=== PATIENT | female | born 1950 | race Caucasian/White ===

== ENCOUNTER 2019-09-08 11:27 | Outpatient (RCR) | payer MEDICARE, OTHER, SELFPAY | END 2019-10-02 23:59 | disposition home or self-care (01) | LOC: SPT 11:27 | PROVIDERS: Family Provider Family Medicine; PCP Family Medicine; Referring Provider Specialist; Visit Provider Specialist | DX: M70.61 Trochanteric bursitis, right hip (principal) | CPT/HCPCS: 97110; 97161; 97530 ==

== ENCOUNTER 2021-08-27 11:41 | Emergency (ER) | payer MEDICARE, SELFPAY ==
[2021-08-27 12:08] VITALS: BP 138/74; PULSE 50; RESP 12; TEMP 36.7; O2SAT 97; BMI 32.5
--- NOTE | 2021-08-27 12:28 | ECG_ITS ---
[facility] Test Date: 2021-08-27 Pat Name: Evelin Crisostomo Department: Room: Gender: Female Research Biologist: : 1950 Requested By: Danielle Blankenship Order Number: [id number] Jazmin MD: Paula Heath M.D. Measurements Intervals [place] Rate: 40 P: 38 NH: 128 QRS: 24 QRSD: 94 T: 5 QT: 453 QTc: 370 Interpretive Statements SINUS BRADYCARDIA NONSPECIFIC T-WAVE ABNORMALITY CRITICAL TEST RESULT No previous ECG available for comparison Electronically Signed On 08-28-2021 16:58:11 [employer]SEM[employer] by Paula Heath M.D. [id number]
--- NOTE | 2021-08-27 12:48 | USR_ITS ---
PROCEDURE INFORMATION: Exam: US Abdomen, Limited; Right Upper Quadrant Exam date and time: 08/27/2021 12:48 PM Age: 71 years old Clinical indication: Abdominal pain; Additional info: Ruq pain TECHNIQUE: Imaging protocol: US abdomen. Real time ultrasound with image documentation. Limited exam focused on the right upper quadrant. COMPARISON: No relevant prior studies available. FINDINGS: Liver: There is a well-circumscribed echogenic focus in the right hepatic lobe with benign features. Gallbladder: Suboptimal visualization of the gallbladder secondary to overlying bowel gas. No definite gallstones are seen. Gallbladder wall is normal in thickness measuring 1.8 mm. Common bile duct: Common bile duct is obscured in regions secondary to overlying bowel gas. It is normal in caliber where visualized measuring 2.8 mm. Pancreas: Limited visualization of the pancreas secondary to overlying bowel gas. No abnormalities visualized. Right kidney: There is mild fullness of the calices in the mid to lower poles of the right kidney. Inferior vena cava: IVC is unremarkable. Other findings: Technically difficult study secondary to a large amount bowel gas in this patient with labored breathing. US/US gall bladder [id number] IMPRESSION: 1. Mild fullness of the mid to lower pole calices of the right kidney. This is of unknown clinical significance. No obstructing calculi visualized. 2. Limited visualization of the gallbladder however no abnormalities are seen. This with a technically difficult study secondary to a large amount of overlying bowel gas.
[2021-08-27 13:07] VITALS: BP 144/82; PULSE 50; RESP 15; O2SAT 96
[2021-08-27 13:14] LABS: Basophils % 0.5 %; Eosinophils # 0.1 10^3/uL (0.0-0.8); Eosinophils % 2.1 %; Hematocrit 38.4 % (37.0-47.0); Hemoglobin 12.4 g/dL (11.5-15.3); Lymphocytes # 1.6 10^3/uL (0.8-4.8); Mean Corpuscular HGB Conc 32.3 g/dL (30.0-36.0); Mean Corpuscular Hemoglobin 26.7 pg (28.0-34.0); Mean Corpuscular Volume 82.6 fl (81-99); Mean Platelet Volume 10.2 fL (7.4-10.4); Monocytes # 0.5 10^3/uL (0.2-0.9); Monocytes % 9.4 %; Neutrophils # 3.31 10^3/uL (1.8-7.7); Neutrophils % 58.8 %; Nucleated Red Blood Cells % 0 %; Platelet Count 206 10^3/cmm (130-400); Red Blood Count 4.65 10^6/uL (4.1-5.3); Red Cell Distribution Width 14.5 % (12.1-15.1); White Blood Count 5.6 10^3/uL (4.0-10.0)
[2021-08-27 13:34] LABS: Alanine Aminotransferase 8 U/L (0-33); Albumin Level 4.3 g/dL (3.5-5.2); Alkaline Phosphatase 105 IU/L (35-105); Anion Gap 14.7 (5-19); Aspartate Amino Transferase 12 U/L (0-32); Blood Urea Nitrogen 13 mg/dL (8-23); Calcium 8.7 mg/dL (8.5-10.5); Carbon Dioxide 23 mmol/L (22-29); Glucose 94 mg/dL (65-115); Lipase 25 U/L (13-60); Potassium 3.7 mmol/L (3.5-5.1); Sodium 143 mmol/L (136-145); Total Bilirubin 0.4 mg/dL (0.15-1.2); Total Protein 7.3 g/dL (6.6-8.7)
[2021-08-27 13:35] LABS: Troponin T (5th) Once 10 ng/L (0-10)
[2021-08-27 13:36] LABS: Chloride 109 mmol/L (98-107)
[2021-08-27 14:07] VITALS: BP 150/81; PULSE 72; RESP 15; O2SAT 98
--- NOTE | 2021-08-27 14:44 | CTR_ITS ---
PROCEDURE INFORMATION: Exam: CT Abdomen And Pelvis With Contrast Exam date and time: 08/27/2021 2:44 PM Age: 71 years old Clinical indication: Abdominal pain; Epigastric; Prior surgery; Surgery date: 6+ months; Surgery type: Appy, gastric sleeve, hysterectomy; Patient HX: Ruq pain x 1 day; Additional info: Eval for gallbladder and kidney issues TECHNIQUE: Imaging protocol: Computed tomography of the abdomen and pelvis with contrast. Radiation optimization: All CT scans at this facility use at least one of these dose optimization techniques: automated exposure control; mA and/or kV adjustment per patient size (includes targeted exams where dose is matched to clinical indication); or iterative reconstruction. Contrast material: VISI 320; Contrast volume: 95 ml; Contrast route: INTRAVENOUS (IV); COMPARISON: US gall bladder [id number] 08/27/2021 1:57 PM RADIATION DOSE METRICS: Total DLP (mGy-cm): 1530.82 FINDINGS: Liver: Normal. No mass. Gallbladder and bile ducts: Normal. No calcified stones. No ductal dilation. Pancreas: Normal. No ductal dilation. Spleen: Normal. No splenomegaly. Adrenal glands: Normal. No mass. Kidneys and ureters: Bilateral renal parapelvic cysts. These have benign features. Follow-up is not necessary. No follow-up is necessary. No evidence for hydroureter. Stomach and bowel: Postop gastric sleeve changes. Colonic constipation is present. There is diverticulosis of the colon without evidence of diverticulitis. Appendix: There has been an appendectomy. Intraperitoneal space: Unremarkable. No free air. No significant fluid collection. Vasculature: There is scattered atherosclerotic plaque in multiple vascular structures. Lymph nodes: Unremarkable. No enlarged lymph nodes. Urinary bladder: Bladder is partially obscured by artifact. No abnormalities are seen. Reproductive: The uterus is not visualized, consistent with hysterectomy. Bones/joints: Right total hip replacement. Resultant artifact obscures adjacent structures. Soft tissues: Unremarkable. CT/CT abdomen pelvis w con* [id number] IMPRESSION: Colonic constipation is present. COMMENTS: Consistent with the [employer]'s Incidental Findings Committee white paper (J Am Calos Radiol 2018): Any incidental renal lesion less than 1 cm or classified as too small to characterize, or any incidental cystic renal lesion characterized as simple-appearing, is likely benign. No follow-up imaging is recommended for these lesions per consensus recommendations based on imaging criteria.
[2021-08-27 15:00] VITALS: BP 142/87; PULSE 59; RESP 18; O2SAT 97
[2021-08-27] MEDS: acetaminophen 500 mg Tablet 1000 MG PO (15:02)
--- NOTE | 2021-08-27 15:03 | W.ED.GENADLT ---
HPI - General Adult General: Chief complaint: Abdominal Pain Stated complaint: RUQ pain Time Seen by Provider: 08/27/21 12:44 History of Present Illness: HPI narrative: Patient is a 71-year-old female with history of appendectomy presented to the emergency with complaints of right upper quadrant abdominal pain since 4:30 AM. Patient tells me pain started while she was at rest. Patient is in, patient has had constant colicky right upper quadrant abdominal pain. Patient denies any history of kidney stones. No signs of hematuria or polyuria. Patient denies any nausea/vomiting, fever/chills,. Patient has had similar pain about 1 month ago. Patient went to see her primary care provider 10 days ago for evaluation of her hiatal hernia. Patient has not had an EGD performed. Patient is due to follow up with general surgery. Onset: 4:30am Duration:10 hrs Location:home Severity:moderates/severe Review of Systems Narrative: Constitutional: No fever, no chills. HEENT: No vision changes CV: No chest pain, no palpitations PULM: no cough, no dyspnea. GI: +RUQ abdominal pain, +N/-V/-D. : No dysuria MSKEL: No muscle pain SKIN: No new rashes, no lesions. NEURO: No headache, no focal weakness. HEME: No visible bruises PSYCH: Normal mood Physical Exam Narrative: EXAM NARRATIVE: Head: Atraumatic Eyes: PERRL, conjunctiva without injection ENT: Mucous membrane moist NECK: Supple, ROM intact LUNGS: LCTAB, no crackles/rhonchi CV: RRR ABDOMEN: Soft, +RUQ focal TTP. NO guarding rebound, guarding, rigidity. No CVA tenderness to percussion. Pos Garrett/Neg McBurney's point tenderness, no suprabupic tenderness to palpation. EXTREMITY: Normal ROM SKIN: No rash or erythema NEURO: Awake and alert, no focal motor deficits PSYCH: Normal mood and affect Course Vital Signs: Vital signs: Vital Signs Temperature 98.0 F 08/27/21 12:08 Pulse Rate 59 L 08/27/21 15:00 Respiratory Rate 18 08/27/21 15:00 Blood Pressure 142/87 08/27/21 15:00 Pulse Oximetry 97 08/27/21 15:00 MDM - General Adult MDM Narrative: Medical decision making narrative: 71-year-old female presented to the emergency room with complaints of right upper quadrant abdominal radha., Patient moderate tenderness to palpation right upper quadrant plus Garrett sign. Ultrasound is equivocal. CT of the pelvis did not show any signs of acute cholecystitis. White count 5.3. Troponin within normal limit. EKG is nonischemic. D-dimer appears to be moderately elevated at which point time decision was made to pursue a CTA. CTA negative for PE. Initial EKG showed sinus bradycardia but patient's HR improved throughout ED assessments to the 50s-60s. On reassessment at 5:17 PM, patient is now in no acute distress. No complaints of abdominal pain after GI cocktail. Patient's will tolerate p.o. without difficulty. No suspicion for other acute intra-abdominal pathology including SBO, biliary pathology, appendicitis, diverticulitis, or other emergent condition requiring surgery. Doubt cardiac related pathology given no chest pain. Troponin within normal limit. Rx tylenol PRN abd pain, maalox/pepcid PRN dyspepsia, and zofran PRN nausea/vomiting Disposition: Discharge. Patient counseled regarding diagnostic impression, treatment plan. Patient given ED strict return precautions to return for continuation, worsening, or development of new symptoms. Instructed to f/u w/ PCP regarding symptoms today. Patient verbalized understanding. Lab Data: Labs: Lab Results 08/27/21 08/27/21 08/27/21 13:00 13:00 13:00 WBC 5.6 10^3/uL 10^3/ uL (4.0-10.0) RBC 4.65 10^6/uL 10^6 /uL (4.1-5.3) Hgb 12.4 g/dL g/dL (11.5-15.3) Hct 38.4 % % (37.0-47.0) MCV 82.6 fl fl (81-99) MCH 26.7 pg L pg (28.0-34.0) MCHC 32.3 g/dL g/dL (30.0-36.0) RDW 14.5 % % (12.1-15.1) Plt Count 206 10^3/cmm 10^3 /cmm (130-400) MPV 10.2 fL fL (7.4-10.4) Neut % (Auto) 58.8 % % Lymph % (Auto) 29.0 % % [place] % (Auto) 9.4 % % Eos % (Auto) 2.1 % % Baso % (Auto) 0.5 % % Neut # (Auto) 3.31 10^3/uL 10^3 /uL (1.8-7.7) Lymph # (Auto) 1.6 10^3/uL 10^3/ uL (0.8-4.8) [place] # (Auto) 0.5 10^3/uL 10^3/ uL (0.2-0.9) Eos # (Auto) 0.1 10^3/uL 10^3/ uL (0.0-0.8) Baso # (Auto) 0.0 10^3/uL 10^3/ uL (0.0-0.1) Nucleated RBC % (a uto) 0 % % Nucleated RBCs # 0.0 /100WBC /100W BC D-Dimer Sodium 143 mmol/L mmol/L (136-145) Potassium 3.7 mmol/L mmol/L (3.5-5.1) Chloride 109 mmol/L H mmol /L (98-107) Carbon Dioxide 23 mmol/L mmol/L (22-29) Anion Gap 14.7 (5-19) BUN 13 mg/dL mg/dL (8-23) Creatinine 0.7 mg/dL mg/dL (0.5-0.9) GFR Calculation Not Reportable Glucose 94 mg/dL mg/dL (65-115) Calculated Osmolal ity TNP Calcium 8.7 mg/dL mg/dL (8.5-10.5) Total Bilirubin 0.4 mg/dL mg/dL (0.15-1.2) AST 12 U/L U/L (0-32) ALT 8 U/L U/L (0-33) Alkaline Phosphata se 105 IU/L IU/L (35-105) Troponin T Gen 5 n g/L 10 ng/L ng/L (0-10) Total Protein 7.3 g/dL g/dL (6.6-8.7) Albumin 4.3 g/dL g/dL (3.5-5.2) Globulin 3.0 g/dL g/dL (1.3-4.6) Lipase 25 U/L U/L (13-60) Urine Color Urine Appearance Urine pH Ur Specific Gravit y Urine Protein Urine Glucose (UA) Urine Ketones Urine Blood Urine Nitrate Urine Bilirubin Urine Urobilinogen Ur Leukocyte Zoey ase Urine RBC Urine WBC Ur Squamous Epith Cells Amorphous Sediment Urine Bacteria 08/27/21 08/27/21 16:05 16:10 WBC RBC Hgb Hct MCV MCH MCHC RDW Plt Count MPV Neut % (Auto) Lymph % (Auto) [place] % (Auto) Eos % (Auto) Baso % (Auto) Neut # (Auto) Lymph # (Auto) [place] # (Auto) Eos # (Auto) Baso # (Auto) Nucleated RBC % (a uto) Nucleated RBCs # D-Dimer 2.66 ug/mIFEU H u g/mIFEU (0-0.59) Sodium Potassium Chloride Carbon Dioxide Anion Gap BUN Creatinine GFR Calculation Glucose Calculated Osmolal ity Calcium Total Bilirubin AST ALT Alkaline Phosphata se Troponin T Gen 5 n g/L Total Protein Albumin Globulin Lipase Urine Color Straw (Yellow) Urine Appearance Clear (CLEAR) Urine pH 7 (5-7) Ur Specific Gravit y 1.005 (1.005-1.030) Urine Protein 1+ H (Negative) Urine Glucose (UA) Norm (Normal) Urine Ketones Negative (Negative) Urine Blood Neg (Negative) Urine Nitrate Negative (Negative) Urine Bilirubin 1+ H (Negative) Urine Urobilinogen 1 mg/dL H mg/dL (Negative) Ur Leukocyte Zoey ase Negative (Negative) Urine RBC None /hpf /hpf (0-2) Urine WBC Rare /hpf /hpf (0-5) Ur Squamous Epith Cells 0-4 /hpf H /hpf (0-5) Amorphous Sediment Not Reportable Urine Bacteria Trace /hpf /hpf (NONE) Imaging Data^: Other Imaging: Radiologist's impression: [address] [id number] ReportSigned Patient: Evelin Crisostomo #: [id number]: [id number]#:[id number]/Sex: 71 / FADM Date: 08/27/21Loc: ERRoom/Bed:Attending Dr: Ordering Provider/Ordering MD: Danielle Blankenship MD Date of Service: 08/27/21 Procedure(s): US gall bladder 76135 Accession Number(s): [id number] Report Number: [id number] PROCEDURE INFORMATION: Exam: US Abdomen, Limited; Right Upper Quadrant Exam date and time: 08/27/2021 12:48 PM Age: 71 years old Clinical indication: Abdominal pain; Additional info: Ruq pain TECHNIQUE: Imaging protocol: US abdomen. Real time ultrasound with image documentation. Limited exam focused on the right upper quadrant. COMPARISON: No relevant prior studies available. FINDINGS: Liver: There is a well-circumscribed echogenic focus in the right hepatic lobe with benign features. Gallbladder: Suboptimal visualization of the gallbladder secondary to overlying bowel gas. No definite gallstones are seen. Gallbladder wall is normal in thickness measuring 1.8 mm. Common bile duct: Common bile duct is obscured in regions secondary to overlying bowel gas. It is normal in caliber where visualized measuring 2.8 mm. Pancreas: Limited visualization of the pancreas secondary to overlying bowel gas. No abnormalities visualized. Right kidney: There is mild fullness of the calices in the mid to lower poles of the right kidney. Inferior vena cava: IVC is unremarkable. Other findings: Technically difficult study secondary to a large amount bowel gas in this patient with labored breathing. US/US gall bladder [id number] IMPRESSION: 1. Mild fullness of the mid to lower pole calices of the right kidney. This is of unknown clinical significance. No obstructing calculi visualized. 2. Limited visualization of the gallbladder however no abnormalities are seen. This with a technically difficult study secondary to a large amount of overlying bowel gas. Dictated By:Guerda Dunn MDSigned By:Guerda Dunn MDSigned Date/Time:08/27/21 1441DD/ [address] [id number] Scan ReportSigned Patient: Evelin Crisostomo #: [id number]: [id number]#:[id number]/Sex: 71 / FADM Date: 08/27/21Loc: ERRoom/Bed:Attending Dr: Ordering Provider/Ordering MD: Danielle Blankenship MD Date of Service: 08/27/21 Procedure(s): CT abdomen pelvis w con* [id number] Accession Number(s): [id number] Report Number: [id number] PROCEDURE INFORMATION: Exam: CT Abdomen And Pelvis With Contrast Exam date and time: 08/27/2021 2:44 PM Age: 71 years old Clinical indication: Abdominal pain; Epigastric; Prior surgery; Surgery date: 6+ months; Surgery type: Appy, gastric sleeve, hysterectomy; Patient HX: Ruq pain x 1 day; Additional info: Eval for gallbladder and kidney issues TECHNIQUE: Imaging protocol: Computed tomography of the abdomen and pelvis with contrast. Radiation optimization: All CT scans at this facility use at least one of these dose optimization techniques: automated exposure control; mA and/or kV adjustment per patient size (includes targeted exams where dose is matched to clinical indication); or iterative reconstruction. Contrast material: VISI 320; Contrast volume: 95 ml; Contrast route: INTRAVENOUS (IV); COMPARISON: US gall bladder [id number] 08/27/2021 1:57 PM RADIATION DOSE METRICS: Total DLP (mGy-cm): 1530.82 FINDINGS: Liver: Normal. No mass. Gallbladder and bile ducts: Normal. No calcified stones. No ductal dilation. Pancreas: Normal. No ductal dilation. Spleen: Normal. No splenomegaly. Adrenal glands: Normal. No mass. Kidneys and ureters: Bilateral renal parapelvic cysts. These have benign features. Follow-up is not necessary. No follow-up is necessary. No evidence for hydroureter. Stomach and bowel: Postop gastric sleeve changes. Colonic constipation is present. There is diverticulosis of the colon without evidence of diverticulitis. Appendix: There has been an appendectomy. Intraperitoneal space: Unremarkable. No free air. No significant fluid collection. Vasculature: There is scattered atherosclerotic plaque in multiple vascular structures. Lymph nodes: Unremarkable. No enlarged lymph nodes. Urinary bladder: Bladder is partially obscured by artifact. No abnormalities are seen. Reproductive: The uterus is not visualized, consistent with hysterectomy. Bones/joints: Right total hip replacement. Resultant artifact obscures adjacent structures. Soft tissues: Unremarkable. CT/CT abdomen pelvis w con* [id number] IMPRESSION: Colonic constipation is present. COMMENTS: Consistent with the [employer]'s Incidental Findings Committee white paper (J Am Calos Radiol 2018): Any incidental renal lesion less than 1 cm or classified as too small to characterize, or any incidental cystic renal lesion characterized as simple-appearing, is likely benign. No follow-up imaging is recommended for these lesions per consensus recommendations based on imaging criteria. Dictated By:Guerda Dunn MDSigned By:Guerda Dunn MDSigned Date/Time:08/27/21 1546DD/ [address] [facility] [place], [place] [address]NV Scan ReportSigned Patient: Evelin Crisostomo #: [id number]: [id number]#:[id number]/Sex: 71 / FADM Date: 08/27/21Loc: ERRoom/Bed:Attending Dr: Ordering Provider/Ordering MD: Danielle Blankenship MD Date of Service: 08/27/21 Procedure(s): CT angio chest PE protcl [id number] Accession Number(s): [id number] Report Number: [id number] PROCEDURE INFORMATION: Exam: CTA Chest With Contrast Exam date and time: 08/27/2021 4:25 PM Age: 71 years old Clinical indication: Chest wall pain; Additional info: Eval pe TECHNIQUE: Imaging protocol: Computed tomographic angiography of the chest with contrast. 3D rendering (Not supervised by radiologist): MIP and/or 3D reconstructed images were created by the technologist. Radiation optimization: All CT scans at this facility use at least one of these dose optimization techniques: automated exposure control; mA and/or kV adjustment per patient size (includes targeted exams where dose is matched to clinical indication); or iterative reconstruction. Contrast material: OMNI 350; Contrast volume: 71 ml; Contrast route: INTRAVENOUS (IV); COMPARISON: CR Chest 1 [place] [id number] 06/13/2017 3:55 AM RADIATION DOSE METRICS: Total DLP (mGy-cm): 528.91 FINDINGS: Pulmonary arteries: Normal. No pulmonary emboli. Aorta: Unremarkable. No aortic aneurysm. No aortic dissection. Lungs: Unremarkable. No consolidation. No masses. Pleural spaces: Unremarkable. No pneumothorax. No pleural effusion. Heart: Multivessel atherosclerotic disease which involves the coronary arteries. Mild cardiomegaly. Lymph nodes: Unremarkable. No enlarged lymph nodes. Stomach and bowel: There are postoperative gastric sleeve changes. Intraperitoneal space: Please see the CT scan of the abdomen for description of the upper abdomen. Bones/joints: Unremarkable. No acute fracture. Soft tissues: Unremarkable. CT/CT angio chest PE protcl [id number] IMPRESSION: 1. Multivessel atherosclerotic disease which involves the coronary arteries. 2. Mild cardiomegaly. 3. No evidence for pulmonary embolus. Dictated By:Guerda Dunn MDSigned By:Guerda Dunn MDSigned Date/Time:08/27/21 1711DD/ 1625 Discharge Plan Discharge Patient Disposition: Home Clinical Impression: Abdominal pain Condition: Stable Prescriptions: New acetaminophen 500 mg tablet 500 mg PO Q6H PRN (Reason: pain) 5 Days Qty: 20 RF: 0 orphenadrine citrate 100 mg tablet extended release 100 mg PO BID PRN (Reason: pain) 10 Days Qty: 20 RF: 0 Maalox Advanced 1,000-60 mg tablet,chewable 1 tab PO TID PRN (Reason: abdominal pain) 7 Days Qty: 21 RF: 0 Zofran 4 mg tablet 4 mg PO TID PRN (Reason: nausea and vomiting) 4 Days Qty: 12 RF: 0 No Action trazodone 50 mg tablet 50 mg PO BEDTIME RF: 0 metoprolol succinate 50 mg tablet extended release 24 hr 75 mg PO DAILY RF: 0 hydrocodone-acetaminophen 5-325 mg tablet 1 tab PO Q4H PRN (Reason: Pain) RF: 0 sertraline 100 mg tablet 100 mg PO DAILY RF: 0 topiramate 25 mg tablet 25 mg PO BID RF: 0 omeprazole 40 mg capsule,delayed release(DR/EC) 40 mg PO DAILY RF: 0 amlodipine 10 mg tablet 10 mg PO DAILY RF: 0 simvastatin 20 mg tablet 20 mg PO DAILY RF: 0 aspirin 81 mg Tablet,Chewable 81 mg PO DAILY RF: 0 Discharge Orders: Discharge ED (Routine); Ordered 08/27/21 Ordered By: Danielle Blankenship Referrals: Arlet Jo MD [Primary Care Provider] - Discharge Diet: Advance as tolerated Discharge Activity: Resume usual activity Patient Instructions: Abdominal Pain (ED) Activity Restrictions/Additional Instructions: Please come back if you have any worsening abdominal pain, fever or chills, nausea or vomiting, diarrhea, blood in the stool, inability hold down liquid or solids, or any new concerning complaints. Coding Level of Care Code ED Automatic Developer for Niko Cole
[2021-08-27] MEDS: iodixanol 320 mg/mL 100mL Btl IV (15:26)
[2021-08-27 16:22] LABS: Specific Gravity, Urine 1.005 (1.005-1.030); Urine Appearance Clear (CLEAR); Urine Color Straw (Yellow); pH Urine 7 (5-7)
[2021-08-27 16:23] LABS: Add Urine Culture? No; Add Urine Microscopic? YES; Bacteria Urine TRACE /hpf; Bilirubin Urine 1+ (Negative); Blood Urine Neg (Negative); Glucose Urine UA Norm (Normal); Ketones Urine Negative (Negative); Leukocyte Esterase Urine Negative (Negative); Nitrate Urine Negative (Negative); Protein Urine 1+ (Negative); Squamous Epithelial Cell Urine 0-4 /hpf (0-5); Urobilinogen Urine 1 mg/dL (Negative); WBC Urine RARE /hpf (0-5)
[2021-08-27 16:24] LABS: D Dimer 2.66 ug/mIFEU (0-0.59)
--- NOTE | 2021-08-27 16:25 | CTR_ITS ---
PROCEDURE INFORMATION: Exam: CTA Chest With Contrast Exam date and time: 08/27/2021 4:25 PM Age: 71 years old Clinical indication: Chest wall pain; Additional info: Eval pe TECHNIQUE: Imaging protocol: Computed tomographic angiography of the chest with contrast. 3D rendering (Not supervised by radiologist): MIP and/or 3D reconstructed images were created by the technologist. Radiation optimization: All CT scans at this facility use at least one of these dose optimization techniques: automated exposure control; mA and/or kV adjustment per patient size (includes targeted exams where dose is matched to clinical indication); or iterative reconstruction. Contrast material: OMNI 350; Contrast volume: 71 ml; Contrast route: INTRAVENOUS (IV); COMPARISON: CR Chest 1 [place] [id number] 06/13/2017 3:55 AM RADIATION DOSE METRICS: Total DLP (mGy-cm): 528.91 FINDINGS: Pulmonary arteries: Normal. No pulmonary emboli. Aorta: Unremarkable. No aortic aneurysm. No aortic dissection. Lungs: Unremarkable. No consolidation. No masses. Pleural spaces: Unremarkable. No pneumothorax. No pleural effusion. Heart: Multivessel atherosclerotic disease which involves the coronary arteries. Mild cardiomegaly. Lymph nodes: Unremarkable. No enlarged lymph nodes. Stomach and bowel: There are postoperative gastric sleeve changes. Intraperitoneal space: Please see the CT scan of the abdomen for description of the upper abdomen. Bones/joints: Unremarkable. No acute fracture. Soft tissues: Unremarkable. CT/CT angio chest PE protcl [id number] IMPRESSION: 1. Multivessel atherosclerotic disease which involves the coronary arteries. 2. Mild cardiomegaly. 3. No evidence for pulmonary embolus.
[2021-08-27] MEDS: iohexol 350 mg/mL 100 mL Btl IV (16:45)
[2021-08-27 18:00] VITALS: BP 152/80; PULSE 50; RESP 17; O2SAT 98
[2021-08-27 18:52] VITALS: BP 152/80; PULSE 50; RESP 17; O2SAT 98
== END 2021-08-27 18:52 | disposition home or self-care (01) ==
PROVIDERS: Emergency Provider Emergency Medicine; PCP Family Medicine
DX: R10.9 Unspecified abdominal pain (principal); Z79.82 Long term (current) use of aspirin
CPT/HCPCS: 71275; 74177; 76705; 80053; 81001; 83690; 84484; 85025; 85378; 93005; 99284; Q9967

== ENCOUNTER 2021-08-29 06:53 | Outpatient (CLI) | payer MEDICARE, SELFPAY ==
--- NOTE | 2021-08-29 06:59 | NM_ITS ---
WS: [id number] NUCLEAR MEDICINE HIDA SCAN CLINICAL INFORMATION: RUQ ABD PAIN; GERD WITHOUT ESOPHAGITIS TECHNIQUE: Following intravenous administration of 8.1 mCi of technetium 99m mebrofenin, images of th e abdomen were obtained over the course of 60 minutes. Next, gallbladder ejection fraction was determ ined by obtaining preprandial and one-hour postprandial images of the gallbladder following oral manny stion of Ensure. COMPARISON: Ultrasound 1226/21 FINDINGS: Normal hepatic uptake at 5 minutes. Normal common bile duct and small bowel activity. Gallbladder is visualized by 15 minutes. No evidence of acute cholecystitis. Gallbladder ejection fraction 87% within normal limits. No evidence of chronic cholecystitis. NM/NM hepatobiliary w phar* [id number] IMPRESSION: 1. No evidence of acute or chronic cholecystitis. 2. Gallbladder ejection fraction 87% within normal limits.
== END 2021-08-29 06:54 | disposition home or self-care (01) ==
LOC: RAD 06:56
PROVIDERS: PCP Family Medicine; Visit Provider Registered Nurse
DX: R10.11 Right upper quadrant pain (principal); K21.9 Gastro-esophageal reflux disease without esophagitis; Z87.19 Personal history of other diseases of the digestive system
CPT/HCPCS: 78227; A9537

== ENCOUNTER 2022-07-31 12:23 | Outpatient (CLI) | payer MEDICARE, SELFPAY ==
--- NOTE | 2022-07-31 12:38 | USCV_ITS ---
Evelin Crisostomo Age: 72 Gender: F : 1950 Exam Date: 07/31/2022 12:58 Ordering Phys: Georgette Bhatt Technologist: Exam Location: [facility] – [place] Indication: Fatigue, [place], Hypertension BP: 140 / 85 HR: 49 Rhythm: Sinus Technical Quality: MEASUREMENTS (Male / Female) Normal Values 2D ECHO LV Diastolic Diameter PLAX 4.3 cm 4.2 - 5.9 / 3.9 - 5.3 cm LV Systolic Diameter PLAX 2.9 cm IVS Diastolic Thickness 1.4 cm 0.6 - 1.0 / 0.6 - 0.9 cm IVS Systolic Thickness 1.4 cm LVPW Diastolic Thickness 1.3 cm 0.6 - 1.0 / 0.6 - 0.9 cm LVPW Systolic Thickness 1.4 cm LVOT Diameter 2.1 cm LV Ejection Fraction 2D Teich 58.9 % LV Ejection Fraction MOD 2C 72.2 % LV Ejection Fraction 2C AL 73.0 % LA Diameter 4.4 cm Aorta at Sinotubular Diameter 2.6 cm IVC Diameter 2.0 cm M-MODE Aortic Annulus Diameter 3.1 cm LA Ao Ratio MM 1.5 MV E Point Septal Separation 0.7 cm DOPPLER AV Peak Velocity 186.0 cm/s LVOT Peak Velocity 86.0 cm/s AV Area Cont Eq vti 1.8 cm squared AV Area Cont Eq pk 1.6 cm squared MV Area PHT 5.0 cm squared Mitral E to A Ratio 1.5 MV E' Velocity 63.5 cm/s Mitral E to MV E' Ratio 7.6 Mitral E to LV E' Lateral Ratio 7.6 Mitral E to LV E' Septal Ratio 7.5 TR Peak Velocity 293.4 cm/s TR Peak Gradient 34.4 mmHg TV Peak E Velocity 87.0 cm/s Right Atrial Pressure 3.0 mmHg Pulmonary Artery Systolic Pressu 37.4 mmHg RV Acceleration Time 0.1 s FINDINGS Left Ventricle Normal left ventricular size, systolic function and wall thickness, with no regional wall motion abnormalities. Left ventricular ejection fraction is estimated at 65 %. Normal diastolic function. Right Ventricle Normal right ventricular size and systolic function. Right ventricular systolic pressure 44 mmHg. Right Atrium Normal right atrial size. Left Atrium Mildly increased left atrial size. Mitral Valve Structurally normal mitral valve. No mitral valve stenosis. Mild mitral valve regurgitation. Aortic Valve Aortic valve not well visualized. No aortic valve stenosis. No aortic valve regurgitation. Tricuspid Valve Structurally normal tricuspid valve. No tricuspid valve stenosis. Trace to mild tricuspid valve regurgitation. Pulmonic Valve Pulmonic valve not well visualized. Pericardium No pericardial effusion. Aorta Normal size aortic root and proximal ascending aorta. IVC Normal IVC dimension with >50% respiratory change of the inferior vena cava. CONCLUSIONS 1. Normal left ventricular size, systolic function and wall thickness, with no regional wall motion abnormalities. Left ventricular ejection fraction is estimated at 65 %. Normal diastolic function. 2. Mild mitral valve regurgitation. 3. Mild pulmonary hypertension with pulmonary artery pressure estimated at 44 mm Hg. 4. No change when compared to study dated 04/07/2014. Paula Heath MD (Electronically Signed) Final Date: 05 August 2022 19:16 S
== END 2022-07-31 12:24 | disposition home or self-care (01) ==
PROVIDERS: PCP Family Medicine; Visit Provider Nurse Practitioner Family
DX: R53.83 Other fatigue (principal); R60.0 Localized edema; I10 Essential (primary) hypertension; I34.0 Nonrheumatic mitral (valve) insufficiency; I27.20 Pulmonary hypertension, unspecified
CPT/HCPCS: 93306

== ENCOUNTER → 2023-01-14 14:09 | Outpatient (BNVA) | payer MEDICARE, SELFPAY | PROVIDERS: PCP Family Medicine; Referring Provider Nurse Practitioner Family; Visit Provider Specialist | DX: M17.12 Unilateral primary osteoarthritis, left knee (principal) | CPT/HCPCS: 20610; 73560; 73565; 99204; J1100; J2795; J3301 ==

== ENCOUNTER → 2023-06-18 11:39 | Outpatient (BNVA) | payer MEDICARE, SELFPAY | PROVIDERS: PCP Family Medicine; Visit Provider Anesthesiology Pain Medicine | DX: G89.29 Other chronic pain; M54.16 Radiculopathy, lumbar region; M25.562 Pain in left knee | CPT/HCPCS: 72110; 99204 ==

== ENCOUNTER → 2023-06-27 11:53 | Outpatient (BNVA) | payer MEDICARE, SELFPAY | PROVIDERS: PCP Family Medicine; Visit Provider Specialist | DX: M17.12 Unilateral primary osteoarthritis, left knee; M25.569 Pain in unspecified knee | CPT/HCPCS: 20610; J1100; J2795; J3301 ==

== ENCOUNTER → 2023-07-17 10:07 | Outpatient (BNVA) | payer MEDICARE, SELFPAY | PROVIDERS: PCP Family Medicine; Visit Provider Anesthesiology Pain Medicine | DX: M54.50 Low back pain, unspecified (principal); G89.29 Other chronic pain | CPT/HCPCS: 99214 ==

== ENCOUNTER → 2023-09-18 15:39 | Outpatient (BNVA) | payer MEDICARE, SELFPAY | PROVIDERS: PCP Nurse Practitioner Family; Visit Provider Specialist | DX: M17.12 Unilateral primary osteoarthritis, left knee | CPT/HCPCS: 73560; 73565; 99213 ==

== ENCOUNTER → 2023-10-03 10:22 | Outpatient (BNVA) | payer MEDICARE, SELFPAY | PROVIDERS: Visit Provider Nurse Practitioner | DX: M17.12 Unilateral primary osteoarthritis, left knee (principal) | CPT/HCPCS: 20610; J1100; J2795; J3301 ==

== ENCOUNTER 2023-10-10 12:36 | Outpatient (RCR) | payer MEDICARE, SELFPAY | END 2023-10-31 23:59 | disposition home or self-care (01) | LOC: SPT 12:36 | PROVIDERS: PCP Family Medicine; Visit Provider Specialist | DX: M25.562 Pain in left knee (principal) | CPT/HCPCS: 97110; 97161 ==

== ENCOUNTER → 2024-01-31 07:56 | Outpatient (BNVA) | payer MEDICARE, SELFPAY | PROVIDERS: PCP Family Medicine; Visit Provider Specialist | DX: M17.12 Unilateral primary osteoarthritis, left knee (principal); Z71.89 Other specified counseling | CPT/HCPCS: 20610 ==

== ENCOUNTER → 2024-05-15 08:42 | Outpatient (BNVA) | payer MEDICARE, SELFPAY | PROVIDERS: PCP Family Medicine; Visit Provider Nurse Practitioner | DX: M17.12 Unilateral primary osteoarthritis, left knee (principal) | CPT/HCPCS: 20610; J1100; J2795; J3301 ==

== ENCOUNTER → 2024-08-20 14:15 | Outpatient (BNVA) | payer MEDICARE, SELFPAY | PROVIDERS: PCP Family Medicine; Visit Provider Nurse Practitioner | DX: M17.12 Unilateral primary osteoarthritis, left knee (principal); Z71.89 Other specified counseling | CPT/HCPCS: 20610; J7318 ==

== ENCOUNTER → 2024-11-18 08:42 | Outpatient (BNVA) | payer MEDICARE, SELFPAY | PROVIDERS: PCP Family Medicine; Visit Provider Nurse Practitioner | DX: M17.12 Unilateral primary osteoarthritis, left knee (principal); Z71.89 Other specified counseling | CPT/HCPCS: 20610; 99213; J1100; J2795; J3301; J9999 ==

== ENCOUNTER → 2025-02-22 13:50 | Outpatient (BNVA) | payer MEDICARE, SELFPAY | PROVIDERS: PCP Family Medicine; Visit Provider Nurse Practitioner | DX: M17.12 Unilateral primary osteoarthritis, left knee (principal); M21.162 Varus deformity, not elsewhere classified, left knee | CPT/HCPCS: 36415; 73560; 73565; 80053; 81001; 85025; 99214 ==

== ENCOUNTER 2025-02-23 11:10 | Emergency (ER) | payer MEDICARE, SELFPAY ==
--- NOTE | 2025-02-23 11:12 | ECG_ITS ---
[facility] Test Date: 2025-02-23 Pat Name: Evelin Crisostomo Department: Room: Gender: Female Pediatric Cardiologist: : 1950 Requested By: Sukhi Ruvalcaba Order Number: [id number] Wu MD: Humza Jarvis M.D. Measurements Intervals [place] Rate: 46 P: 23 TN: 141 QRS: 25 QRSD: 103 T: 7 QT: 490 QTc: 429 Interpretive Statements SINUS BRADYCARDIA POSSIBLE RIGHT VENTRICULAR CONDUCTION DELAY [RSR (QR) IN V1/V2] Compared to ECG 08/27/2021 12:56:23 T-wave abnormality no longer present Electronically Signed On 02-23-2025 17:10:35 CDT by Humza Jarvis M.D. [email or web address]
[2025-02-23 11:37] LABS: Basophils % 0.5 %; Eosinophils # 0.1 10^3/uL (0.0-0.8); Eosinophils % 1.3 %; Hematocrit 34.9 % (36-47); Lymphocytes # 1.6 10^3/uL (0.8-4.8); Mean Corpuscular HGB Conc 31.5 g/dL (30-55); Mean Corpuscular Hemoglobin 25.6 pg (27-33); Mean Corpuscular Volume 81.4 fl (85-98); Mean Platelet Volume 10.2 fL (7.4-10.4); Monocytes # 0.9 10^3/uL (0.2-0.9); Monocytes % 15.5 %; Neutrophils % 56.5 %; Nucleated Red Blood Cells % 0 %; Platelet Count 210 10^3/cmm (157-399); Red Blood Count 4.29 10^6/uL (3.85-5.65); Red Cell Distribution Width 15.3 % (12.1-15.1); White Blood Count 6.01 10^3/uL (3.29-11.43)
[2025-02-23 11:41] VITALS: BP 118/62; PULSE 53; RESP 16; TEMP 36.8; O2SAT 97
[2025-02-23 11:59] LABS: Alanine Aminotransferase 9 U/L (0-33); Alkaline Phosphatase 91 U/L (35-105); Anion Gap 16.9 (5-19); Aspartate Amino Transferase 14 U/L (0-32); Blood Urea Nitrogen 21 mg/dL (8-23); Calcium 9.1 mg/dL (8.5-10.5); Carbon Dioxide 22 mmol/L (22-29); Chloride 103 mmol/L (98-107); Creatinine Clr Calc Pharmacy 38.6913; Globulin 3.1 g/dL (1.3-4.6); Glucose 100 mg/dL (65-115); Magnesium 2.2 mg/dL (1.7-2.3); Osmolality Calculated 291 mOsm/kg (285-295); Sodium 139 mmol/L (136-145); Total Bilirubin 0.5 mg/dL (0.15-1.2); Total Protein 7.1 g/dL (6.6-8.7)
[2025-02-23 12:11] LABS: Potassium 2.9 mmol/L (3.5-5.1)
--- NOTE | 2025-02-23 12:58 | W.ED.RECABL ---
HPI - Recheck/Abnormal Lab/Rx General: Chief Complaint: Recheck/Abnormal Lab/Rx Stated Complaint: abnormal labs Time Seen by Provider: 02/23/25 12:47 Source: patient Mode of arrival: ambulatory Limitations: no limitations History of Present Illness: 74-year-old female states she had had preop labs drawn yesterday and was called and told her that her potassium was low at 2.7 need to have it checked. States she has had some mild weakness denies any vomiting or diarrhea states she feels pretty much at her baseline though. Denies any worse improved factors Related Data Home Medications ?Medication ?Instructions ?Recorded ?Confirmed amlodipine 10 mg tablet 10 mg PO DAILY 08/27/21 02/22/25 aspirin 81 mg chewable tablet 81 mg PO DAILY see pharmacy comment 08/27/21 11/18/24 omeprazole 40 mg capsule,delayed 40 mg PO DAILY 08/27/21 02/22/25 release sertraline 100 mg tablet 100 mg PO DAILY 08/27/21 02/22/25 simvastatin 20 mg tablet 20 mg PO DAILY 08/27/21 02/22/25 topiramate 25 mg tablet 25 mg PO BID 08/27/21 02/22/25 metoprolol succinate 50 mg 25 mg PO DAILY 01/14/23 02/22/25 tablet,extended release 24 hr trazodone 50 mg tablet 100 mg PO BEDTIME 01/14/23 02/22/25 Previous Rx's ?Medication ?Instructions ?Recorded hyaluronate sodium, stabilized 60 60 mg (3 mL) intra-articular 10/03/23 mg/3 mL intra-articular syringe .every 6 months #3 mL (Durolane) diclofenac sodium 1 % topical gel 4 g topical QID #100 grams 08/28/24 (Arthritis Pain (diclofenac)) potassium chloride 20 mEq 20 meq PO BID #10 tabs 02/23/25 tablet,extended release (K-Tab) Allergies Allergy/AdvReac Type Severity Reaction Status Date / Time acetaminophen (From Allergy ADR-Hyperte Verified 02/22/25 13:16 Darvocet-N) nsion diphenhydramine (From Allergy ADR-Itching Verified 02/22/25 13:16 Benadryl) morphine Allergy ALGY-Anaphy Verified 02/22/25 13:16 laxis oxycodone (From Percocet) Allergy ADR/ALGY-Fl Verified 02/22/25 13:16 ushing prochlorperazine (From Allergy ADR-Itching Verified 02/22/25 13:16 Compazine) propoxyphene (From Allergy ADR-Hyperte Verified 02/22/25 13:16 Darvocet-N) nsion Review of Systems Const: Denies: fever(s), chills, body aches or change in appetite ENMT: Denies: throat pain or dental pain Card: Denies: chest pain Resp: Denies: dyspnea GI: Denies: abdominal pain, nausea, vomiting or diarrhea Musc: Denies: neck pain or back pain Skin/Breast: Denies: rash Neuro: Denies: headache(s) PFSH ED PFSH: Social History Smoking and tobacco/nicotine status: never used tobacco/nicotine Physical Exam Const: COMMON NORMALS: no acute distress, patient oriented x3 and healthy appearing HENMT: COMMON NORMALS: normocephalic and atraumatic HEAD & SCALP: normocephalic and atraumatic Eye: COMMON NORMALS: conjunctivae normal CONJUNCTIVA: Yes conjunctivae normal Neck/C-Spine: COMMON NORMALS: full ROM and supple Chest: COMMONS NORMALS: normal inspection of the chest Resp: COMMON NORMALS: normal respiratory effort, No retractions, No use of accessory muscles and clear to auscultation bilaterally AUSCULTATION: clear to auscultation bilaterally Cardio: COMMON NORMALS: regular rate, regular rhythm and No murmurs present (Cardio) RATE: regular rate RHYTHM: regular rhythm Extremity: COMMON NORMALS: normal to inspection and full ROM Neuro: COMMON NORMALS: patient oriented x3, moves all extremities and no focal motor deficits Psych: COMMON NORMALS: mental status grossly normal, Normal thought process present and cooperative THOUGHT PROCESS: Normal thought process present Skin: COMMON NORMALS: no rashes or lesions noted and no wounds GENERAL SKIN EXAM: no rashes or lesions noted Course Vital Signs: Vital signs: Vital Signs Temperature 98.2 F 02/23/25 11:41 Pulse Rate 53 L 02/23/25 11:41 Respiratory Rate 16 02/23/25 11:41 Blood Pressure 118/62 02/23/25 11:41 Pulse Oximetry 97 02/23/25 11:41 Oxygen Delivery Me thod Room Air 02/23/25 11:41 MDM - Recheck/Abnormal Lab/Rx Medical Decision Making Patient presents with hypokalemia her potassium is improved to 2.9 she is well-appearing here asymptomatic we will give her potassium replacement here prescribe her potassium for home she is to have it rechecked in 1 week with her PCP return if worsening. Medical Records I reviewed the patient's medical records. Lab Data I reviewed the patient's lab results. 02/23/25 11:30 02/23/25 11:30 Laboratory Results WBC 6.01 10^3/uL (3.29-11.43) 02/23/25 11:30 RBC 4.29 10^6/uL (3.85-5.65) 02/23/25 11:30 Hgb 11.00 g/dL (11.27-16.99) L 02/23/25 11:30 Hct 34.9 % (36-47) L 02/23/25 11:30 MCV 81.4 fl (85-98) L 02/23/25 11:30 MCH 25.6 pg (27-33) L 02/23/25 11:30 MCHC 31.5 g/dL (30-55) 02/23/25 11:30 RDW 15.3 % (12.1-15.1) H 02/23/25 11:30 Plt Count 210 10^3/cmm (157-399) 02/23/25 11:30 MPV 10.2 fL (7.4-10.4) 02/23/25 11:30 Neut % (Auto) 56.5 % 02/23/25 11:30 Lymph % (Auto) 26.0 % 02/23/25 11:30 [place] % (Auto) 15.5 % 02/23/25 11:30 Eos % (Auto) 1.3 % 02/23/25 11:30 Baso % (Auto) 0.5 % 02/23/25 11:30 Neut # (Auto) 3.40 10^3/uL (1.8-7.7) 02/23/25 11:30 Lymph # (Auto) 1.6 10^3/uL (0.8-4.8) 02/23/25 11:30 [place] # (Auto) 0.9 10^3/uL (0.2-0.9) 02/23/25 11:30 Eos # (Auto) 0.1 10^3/uL (0.0-0.8) 02/23/25 11:30 Baso # (Auto) 0.0 10^3/uL (0.0-0.1) 02/23/25 11:30 Nucleated RBC % (auto) 0 % 02/23/25 11:30 Nucleated RBCs # 0.0 /100WBC 02/23/25 11:30 Sodium 139 mmol/L (136-145) 02/23/25 11:30 Potassium 2.9 mmol/L (3.5-5.1) L 02/23/25 11:30 Chloride 103 mmol/L (98-107) 02/23/25 11:30 Carbon Dioxide 22 mmol/L (22-29) 02/23/25 11:30 Anion Gap 16.9 (5-19) 02/23/25 11:30 BUN 21 mg/dL (8-23) 02/23/25 11:30 Creatinine 1.1 mg/dL (0.5-0.9) H 02/23/25 11:30 GFR Calculation Not Reportable 02/23/25 11:30 Glucose 100 mg/dL (65-115) 02/23/25 11:30 Calculated Osmolality 291 mOsm/kg (285-295) 02/23/25 11:30 Calcium 9.1 mg/dL (8.5-10.5) 02/23/25 11:30 Magnesium 2.2 mg/dL (1.7-2.3) 02/23/25 11:30 Total Bilirubin 0.5 mg/dL (0.15-1.2) 02/23/25 11:30 AST 14 U/L (0-32) 02/23/25 11:30 ALT 9 U/L (0-33) 02/23/25 11:30 Alkaline Phosphatase 91 U/L (35-105) 02/23/25 11:30 Total Protein 7.1 g/dL (6.6-8.7) 02/23/25 11:30 Albumin 4.0 g/dL (3.5-5.2) 02/23/25 11:30 Globulin 3.1 g/dL (1.3-4.6) 02/23/25 11:30 No radiology studies performed this visit Discharge Plan Discharge Patient Disposition: Home Clinical Impression: Hypokalemia Condition: Stable Prescriptions: New potassium chloride [K-Tab] 20 mEq tablet extended release 20 meq PO BID Qty: 10 0RF No Action Durolane 60 mg/3 mL syringe 60 mg intra-articular .every 6 months Qty: 3 0RF diclofenac sodium [Arthritis Pain (diclofenac)] 1 % gel 4 g topical QID Qty: 100 0RF Rx Instructions: apply to single knee, ankle, foot; for foot includes sole/toes/top of foot sertraline 100 mg tablet 100 mg PO DAILY topiramate 25 mg tablet 25 mg PO BID omeprazole 40 mg capsule,delayed release(DR/EC) 40 mg PO DAILY amlodipine 10 mg tablet 10 mg PO DAILY simvastatin 20 mg tablet 20 mg PO DAILY aspirin 81 mg Tablet,Chewable 81 mg PO DAILY metoprolol succinate 50 mg tablet extended release 24 hr 25 mg PO DAILY trazodone 50 mg tablet 100 mg PO BEDTIME Discharge Orders: Discharge ED (Routine); Ordered 02/23/25 Ordered By: Sukhi Ruvalcaba Referrals: Randa Escobar MD [Primary Care Provider, Family Practice] - 4-7 days Discharge Diet: Advance as tolerated Discharge Activity: Resume usual activity Patient Instructions: Hypokalemia (ED) Print Language: Urdu Coding Level of Care Code ED Sales Associate Cashier for Niko Cole
[2025-02-23] MEDS: potassium chloride ER 20 mEq Tablet 80 MEQ PO (13:28)
[2025-02-23 13:40] VITALS: BP 127/64; PULSE 51; O2SAT 99
== END 2025-02-23 13:40 | disposition home or self-care (01) ==
PROVIDERS: Emergency Provider Emergency Medicine; PCP Family Medicine
DX: E87.6 Hypokalemia (principal); Z79.82 Long term (current) use of aspirin
CPT/HCPCS: 36415; 80053; 83735; 85025; 93005; 99284; J9999

== ENCOUNTER 2025-03-04 16:51 | Outpatient (CLI) | payer MEDICARE, SELFPAY ==
--- NOTE | 2025-03-04 17:15 | CT_ITS ---
WS: [id number] CT LEFT KNEE, NONCONTRAST [facility] TECHNIQUE: Noncontrast CT of the LEFT knee to include the LEFT hip and ankle. CLINICAL INFORMATION: M17.12 - Unilateral primary osteoarthritis, left knee DLP: 948.[address] scans at [facility] use at least one of these dose optimization techniques: automated exposure control; mA and/or kV adjustment per patient size (includes targeted exams where dose is matched to clinical indication); or iterative reconstruction. FINDINGS: RIGHT ARABELLA degrades images in the pelvis. Sigmoid diverticulosis. Advanced tricompartmental arthritis LEFT knee with joint space narrowing worse in the medial joint compartment. Hypertrophic patella. Trace suprapatellar fluid. Small popliteal cyst. Osteopenia. Vascular calcification. CT/CT knee LT S[place]IE [id number] IMPRESSION: Images obtained for preoperative purposes.
== END 2025-03-04 16:52 | disposition home or self-care (01) ==
LOC: RAD 16:53
PROVIDERS: PCP Nurse Practitioner Family; Visit Provider Nurse Practitioner
DX: M17.12 Unilateral primary osteoarthritis, left knee (principal)
CPT/HCPCS: 73700

== ENCOUNTER 2025-03-09 13:14 | Observation (INO) | payer MEDICARE, SELFPAY ==
[2025-03-09] VITALS (20 sets, daily range): BP systolic 84–156; BP diastolic 48–89; PULSE 49–71; RESP 12–18; TEMP 36.1–36.5; O2SAT 92–98; BMI 33.4; BMI 34.0
--- NOTE | 2025-03-09 07:00 | W.PM.OPSUD ---
Surgery/Procedure H&P Update DATE OF PROCEDURE: March 09, 2025 DATE H&P PERFORMED: 03/04/25 H&P UPDATE INFORMATION: I have reviewed H&P completed within last 30 days, I have examined patient prior to procedure, No changes to prior documentation, H&P to be scanned into chart and Risks and benefits of the procedure reviewed PLANNED PROCEDURE: Operation Date: 03/09/25 07:50 Proposed Procedures p LEFT Avila Robot Total Knee Arthroplasty(Left) - Sabina Elias MD Related Problem List Diagnoses (1) Primary osteoarthritis of left knee:
[2025-03-09] MEDS: acetaminophen 1,000 MG/100 ML PIGGYBACK 400 MG IV ×3 (07:12→20:43)
[2025-03-09 07:22] LABS: Hematocrit 33.6 % (36-47); Hemoglobin 10.70 g/dL (11.27-16.99); Mean Corpuscular HGB Conc 31.8 g/dL (30-55); Mean Corpuscular Hemoglobin 26.2 pg (27-33); Mean Corpuscular Volume 82.2 fl (85-98); Nucleated Red Blood Cells % 0 %; Platelet Count 235 10^3/cmm (157-399); Red Blood Count 4.09 10^6/uL (3.85-5.65); White Blood Count 5.39 10^3/uL (3.29-11.43)
[2025-03-09 07:37] LABS: Blood Urea Nitrogen 32 mg/dL (8-23); Calcium 9.2 mg/dL (8.5-10.5); Carbon Dioxide 24 mmol/L (22-29); Chloride 99 mmol/L (98-107); Creatinine Clr Calc Pharmacy 36.7235; Glucose 93 mg/dL (65-115); Osmolality Calculated 293 mOsm/kg (285-295); Sodium 138 mmol/L (136-145)
[2025-03-09 07:38] LABS: Anion Gap 18.2 (5-19); Potassium 3.2 mmol/L (3.5-5.1)
[2025-03-09 08:11] LABS: Potassium 3.0 mmol/L (3.5-5.1)
[2025-03-09] MEDS: ceFAZolin 2,000 mg SDV 2000 MG IVP ×3 (08:40→23:44)
[2025-03-09] MEDS: tranexamic acid 1,000 mg/10mL SDV 1000 MG IV (09:11)
[2025-03-09] MEDS: ceFAZolin 1,000 mg SDV 2000 MG IRRIGATION (09:59)
[2025-03-09] MEDS: BUPivacaine liposome 13.3 mg/mL SDV 20 mL 266 MG INJECTION (10:05)
[2025-03-09] MEDS: BUPivacaine 0.5% INJ 10 mL 20 ML INJECTION (10:05)
--- NOTE | 2025-03-09 11:22 | XRR_ITS ---
PROCEDURE INFORMATION: Exam: XR Left Knee Exam date and time: 03/09/2025 11:38 AM Age: 74 years old Clinical indication: Device placement; Joint replacement hardware; Prior surgery; Surgery date: Post-operative (0-2 days); Surgery type: Status post left total knee arthroplasty TECHNIQUE: Imaging protocol: Radiologic exam of the left knee. Views: 1 or 2 views. COMPARISON: CT knee LT [facility] [id number] 03/04/2025 5:14 PM FINDINGS: Bones/joints: Total hip arthroplasty changes. The hardware appears intact. No dislocation. There is fluid and air within the knee joint. Soft tissues: Postsurgical changes of the soft tissues . Soft tissue swelling. XR/XR knee LT 1-2V [id number] IMPRESSION: As above.
--- NOTE | 2025-03-09 11:23 | P.OP_ITS ---
Operative Report Date of procedure: March 09, 2025 Pre-op diagnosis: Primary osteoarthritis left knee Post-op diagnosis: Primary osteoarthritis left knee Post-op findings: Severe degenerative osteoarthritis left knee with varus deformity and lateral laxity Procedure done: Left total knee arthroplasty with Avila guidance Implants: The Shanthi total knee system with a size 3 triathlon beaded cruciate retaining femur left, a triathlon titanium tibial component size 3 beaded, a triathlon X3 tibial bearing CS insert size 3 x 10 mm and a beaded triathlon titanium asymmetric patella size 32 x 10 mm Specimens removed/disposition: Bone, disposed of Pathology: None Surgeon: Sabina Elias MD Cargo Surveyor: Bernadette Beltrán whose services were required for retraction, positioning, intraoperative exposure, and closure Anesthesia: Spinal (With MAC, ASA 3) Estimated blood loss (mL): 130 Tourniquet time (min): 0 (Not utilized) IV fluids (mL): 1,300 Urine output (mL): 400 Complications: None Findings: Severe degenerative osteoarthritis with osteophytes, varus deformity, and late ral laxity Condition: stable Disposition: PACU (Then to floor for postoperative rehabilitation and pain management) Brief History: This 74-year-old woman presented to the clinic with complaints of severe left knee pain secondary to osteoarthritis. Patient tried and failed conservative measures including bracing, anti-inflammatory medications, injection therapies, physical therapy, and activity modifications. Patient continued to have significant limitations in her activities of daily living, and after discussion, she wished to proceed with left total knee arthroplasty. Risks and complications were discussed with her. Consents were signed and questions were answered. Procedure: The patient was brought to the operating theater, and after undergoing adequate spinal anesthesia with MAC, ASA 3, the left lower extremity was prepped with Dura-Prep and draped in usual fashion following placement of a tourniquet high on the leg. The leg was then draped free.? Tourniquet was not elevated throughout the surgical procedure. Prior to commencement of the procedure, a surgical pause was performed, and at the time of the surgical pause, we confirmed the site and side of surgery. Additionally, we confirmed the appropriate and timely administration of preoperative antibiotics, Ancef 2 g.? The availability of equipment was confirmed, and the patient's identity was verbalized as well. Following the surgical pause, an incision was made centering over the patella continuing proximally and distally as necessary to allow access to the knee joint. Dissection continued through skin and soft tissues using a scalpel. Hemostasis was obtained using electrocautery. The skin incision was followed by a median parapatellar arthrotomy. The leg was extended and the patella was able to be displaced laterally.? Appropriate arrays and markers were placed in appropriate position for use of the Avila.? Preoperative planning had been accomplished and was discussed in detail with the [facility] accounts receivable representative.? Intraoperative mapping of the femur and tibia was accomplished after the arrays were placed.? Internal markers were also placed.? Once we had accomplished the Avila mapping, we began the appropriate resections for placement of the prosthesis.? The plan was for a cruciate retaining right total knee arthroplasty. Once appropriate mapping had been accomplished retraction was established using manual retraction by surgical technicians and also the [facility] leg positioner and retractors.? The knee was evaluated.? There was significant osteoarthritic change as well as a significant flexion contracture and severe varus deformity.? Appropriate bone resection was accomplished using the Avila.? The femur was sized to a size 3.? Following femoral cuts, attention was directed to the tibia.? Osteophytes were removed prior to this portion of the procedure.? We had performed a medial release at the beginning of the procedure to allow for placement of the array.? Proximal tibia was evaluated, and it was felt that appropriate size for the tibia was a size 3.? The size 3 tray was noted to fit nicely with good coverage.? Rim fit was accomplished with the size 3. A trial reduction was accomplished after osteophytes had been removed as well as the medial and lateral menisci.? We had removed the anterior cruciate ligament at the beginning of the case and preserved the posterior cruciate ligament.? Trial reduction was accomplished with a size 3 femoral cruciate retaining component, a size 3 tibial tray and a size 3 CS tibial bearing insert which was a 10 mm thickness. With this insert, the knee was noted to be well-balanced. Alignment was felt to be appropriate as well.? Trial components were removed after the femur had been drilled.? Prior to removal of the tibial tray which had been pinned in position with appropriate rotation as determined by the [facility] plan, we broached the tibia.? Subsequently, the 4 drill holes were made for the prosthetic component.? All trial components were removed, and the wound was irrigated.? Plans were made for insertion of the prosthetic components.? Prior to this, the patella was manually prepared.? After resection of the articular surface with the jogging system, it was measured and measured a 35 mm patella.? We resected approximately 8 mm of patella.? Patellar height was restored with the patellar component. Once again, the wound was irrigated. The Tritanium tibia was impacted into position.? The beaded femur was then impacted into position in a cementless fashion. The CS tibial insert was placed prior to placement of the femoral component. The patella was pressed into position with a patellar clamp.? Exparel was injected about the components deep and superficially.? The knee was then copiously irrigated with betadine and saline and suctioned dry. Attention was then directed to closure. Closure was accomplished with 0 Vicryl in the fascial tissues.? The suture line of 0 Vicryl was supplemented with strata fix, #1, with a running suture from proximal to distal and a second running stitch from distal to proximal.? This was followed by Surgiflo and vancomycin powder.? Following this, a 2-0 Strata Fix was used in the subcutaneous tissues, and the skin was closed with 3-0 Strata fix.? Care was taken to assure an excellent subcutaneous as well as skin closure.? A sterile dressing was then placed consisting of Dermabond Prineo, OpSite, ABD, sterile soft roll, and an Nick wrap including over the foot. The patient was returned the Recovery Room in a satisfactory condition. X-rays were obtained and reviewed there.? The patient will be discharged to the floor for postoperative rehabilitation and pain management. Related Problem List Diagnoses 1. Primary osteoarthritis of left knee:
[2025-03-09] MEDS: oxyCODONE 5 mg IR Tab/Cap PO (12:33)
[2025-03-09] MEDS: fentaNYL 50 mcg/mL INJ 2mL IVP (13:05)
--- NOTE | 2025-03-09 13:23 | SUR.EXTENDED ---
9720-report called to rn on medsurg, discussed patient may want a different pain medication for home when discharged
[2025-03-09] MEDS: chlorhexidine gluconate 0.12% Btl 473 mL 30 ML MUCOUS MEM ×3 (14:15→20:47)
[2025-03-09] MEDS: tranexamic acid 1,000 MG/100 ML PREMIX 600 MG IV (16:08)
[2025-03-09] MEDS: mupirocin oint 22 gm 1 APPLIC NASAL (16:09)
[2025-03-09] MEDS: sennosides-docusate Tablet 2 TAB PO (16:09)
[2025-03-09] MEDS: HYDROcodone-acetaminophen 10-325 mg Tablet 1 TAB PO ×2 (17:00→21:36)
[2025-03-09] MEDS: metoclopramide 5 mg/mL SDV 2 mL 10 MG IV (18:26)
[2025-03-10] VITALS (12 sets, daily range): BP systolic 72–128; BP diastolic 32–67; PULSE 52–86; RESP 16–18; TEMP 36.4–36.8; O2SAT 90–95
[2025-03-10 03:59] LABS: Hematocrit 27.0 % (36-47); Hemoglobin 8.30 g/dL (11.27-16.99); Mean Corpuscular HGB Conc 30.7 g/dL (30-55); Mean Corpuscular Hemoglobin 26.2 pg (27-33); Mean Corpuscular Volume 85.2 fl (85-98); Nucleated Red Blood Cells % 0 %; Platelet Count 150 10^3/cmm (157-399); Red Blood Count 3.17 10^6/uL (3.85-5.65); White Blood Count 7.23 10^3/uL (3.29-11.43)
[2025-03-10 04:17] LABS: Anion Gap 13.0 (5-19); Blood Urea Nitrogen 24 mg/dL (8-23); Calcium 8.0 mg/dL (8.5-10.5); Carbon Dioxide 24 mmol/L (22-29); Chloride 107 mmol/L (98-107); Creatinine Clr Calc Pharmacy 37.0807; Glucose 96 mg/dL (65-115); Osmolality Calculated 296 mOsm/kg (285-295); Potassium 3.0 mmol/L (3.5-5.1); Sodium 141 mmol/L (136-145)
[2025-03-10] MEDS: ceFAZolin 2,000 mg SDV 2000 MG IVP (08:19)
[2025-03-10] MEDS: HYDROcodone-acetaminophen 10-325 mg Tablet 1 TAB PO ×2 (08:19→12:04)
[2025-03-10] MEDS: chlorhexidine gluconate 0.12% Btl 473 mL 30 ML MUCOUS MEM ×2 (08:20→12:05)
[2025-03-10] MEDS: multivitamin therapeutic Tablet 1 TAB PO (08:20)
[2025-03-10] MEDS: mupirocin oint 22 gm 1 APPLIC NASAL (08:21)
--- NOTE | 2025-03-10 14:51 | PM.DCS ---
Discharge Providers Date of Admission: 03/09/25 13:14 Date of Discharge: March 10, 2025 Attending Provider at Admission: Sabina Elias MD Attending Provider at Discharge: Sabina Elias MD Primary Care Provider: Georgette Bhatt Diagnoses at Discharge Discharge Diagnosis 1. Primary osteoarthritis of left knee: 2. Status post total left knee replacement not using cement: Reason for Visit Reason for Visit: M17.12 Brief History: This 74-year-old woman presented to the clinic with complaints of severe left knee pain secondary to osteoarthritis. Patient tried and failed conservative measures including bracing, anti-inflammatory medications, injection therapies, physical therapy, and activity modifications. Patient continued to have significant limitations in her activities of daily living, and after discussion, she wished to proceed with left total knee arthroplasty. Risks and complications were discussed with her. Consents were signed and questions were answered. Hospital Course Hospital Course 74-year-old woman was admitted under observation status following total knee arthroplasty. The patient tolerated the procedure well. Postoperatively, she did have some pain and some blood pressure issues which were resolved over the evening following her surgery. On postoperative day 1, she was able to ambulate nicely and felt comfortable with going home. There was no evidence of DVT. Her dressing was dry and intact. There were no complications and she was discharged to home. Physical Exam Const: COMMON NORMALS: no acute distress, average body habitus, patient oriented x3 and alert GENERAL APPEARANCE: cooperative and comfortable ORIENTATION/CONSCIOUSNESS: Yes awake HENMT: COMMON NORMALS: normocephalic and atraumatic HEAD & SCALP: normocephalic and atraumatic Eye: GENERAL EYE: appearance normal, both eyes and all related structures Chest: COMMONS NORMALS: normal inspection of the chest Resp: COMMON NORMALS: normal respiratory effort EFFORT & INSPECTION: Yes able to speak in complete sentences and Yes symmetric chest movement Extremity: LEFT LOWER EXTREMITY: Yes knee joint (Large outer dressing is removed, dressing dry and intact) Left knee: Yes inspection (No significant ecchymosis), Yes palpation (No significant tenderness), Yes ROM (Not evaluated) and Yes neurovascular exam (Intact distally with no evidence of DVT) Neuro: COMMON NORMALS: patient oriented x3 SENSORIUM/ORIENTATION: Yes alert Psych: COMMON NORMALS: mental status grossly normal APPEARANCE: Yes grossly normal ATTITUDE: Yes calm and Yes engaged ATTENTION/CONCENTRATION: Yes attention grossly intact Skin: COMMON NORMALS: no rashes or lesions noted GENERAL SKIN EXAM: no rashes or lesions noted Urinary Catheter Management: Carroll: Cath Placed During This Visit: yes, but has since been removed by the nurse Reason for Continuing Indwelling Catheter: Decision to DC Catheter Urinary Catheter Date of Insertion: 03/09/25 Urinary Catheter Time of Insertion: 08:56 Date Urinary Catheter Removed: 03/10/25 Time Urinary Catheter Discontinued: 06:44 Discharge Data Studies Completed and Pending Pending at discharge Category Date Time Status XR knee LT 1-2V [id number] Routine Exams 03/09/25 11:22 Taken Laboratory Results WBC 7.23 10^3/uL (3.29-11.43) 03/10/25 03:46 RBC 3.17 10^6/uL (3.85-5.65) L 03/10/25 03:46 Hgb 8.30 g/dL (11.27-16.99) L 03/10/25 03:46 Hct 27.0 % (36-47) L 03/10/25 03:46 MCV 85.2 fl (85-98) 03/10/25 03:46 MCH 26.2 pg (27-33) L 03/10/25 03:46 MCHC 30.7 g/dL (30-55) 03/10/25 03:46 RDW 15.8 % (12.1-15.1) H 03/10/25 03:46 Plt Count 150 10^3/cmm (157-399) L D 03/10/25 03:46 MPV 9.8 fL (7.4-10.4) 03/10/25 03:46 Neut % (Auto) 76.2 % 03/10/25 03:46 Lymph % (Auto) 10.1 % 03/10/25 03:46 [place] % (Auto) 12.3 % 03/10/25 03:46 Eos % (Auto) 0.3 % 03/10/25 03:46 Baso % (Auto) 0.3 % 03/10/25 03:46 Neut # (Auto) 5.51 10^3/uL (1.8-7.7) 03/10/25 03:46 Lymph # (Auto) 0.7 10^3/uL (0.8-4.8) L 03/10/25 03:46 [place] # (Auto) 0.9 10^3/uL (0.2-0.9) 03/10/25 03:46 Eos # (Auto) 0.0 10^3/uL (0.0-0.8) 03/10/25 03:46 Baso # (Auto) 0.0 10^3/uL (0.0-0.1) 03/10/25 03:46 Nucleated RBC % (auto) 0 % 03/10/25 03:46 Nucleated RBCs # 0.0 /100WBC 03/10/25 03:46 Sodium 141 mmol/L (136-145) 03/10/25 03:46 Potassium 3.0 mmol/L (3.5-5.1) L 03/10/25 03:46 Chloride 107 mmol/L (98-107) 03/10/25 03:46 Carbon Dioxide 24 mmol/L (22-29) 03/10/25 03:46 Anion Gap 13.0 (5-19) 03/10/25 03:46 BUN 24 mg/dL (8-23) H 03/10/25 03:46 Creatinine 1.2 mg/dL (0.5-0.9) H 03/10/25 03:46 GFR Calculation Not Reportable 03/10/25 03:46 Glucose 96 mg/dL (65-115) 03/10/25 03:46 Calculated Osmolality 296 mOsm/kg (285-295) H 03/10/25 03:46 Calcium 8.0 mg/dL (8.5-10.5) L 03/10/25 03:46 Vitals Last Vital Signs Temp 97.5 F L 03/10/25 11:47 Pulse 57 L 03/10/25 11:47 Resp 16 03/10/25 11:47 BP 128/64 03/10/25 11:47 Pulse Ox 92 03/10/25 11:47 O2 Del Method Room Air 03/10/25 11:47 O2 Flow Rate 2 03/09/25 12:30 Discharge Plan Discharge Patient Disposition: Home Health Service Condition: Stable Prescriptions: New celecoxib 200 mg Capsule 200 mg PO Q12H 30 Days Qty: 60 0RF hydrocodone-acetaminophen 10-325 mg Tablet 1 tab PO Q4H PRN (Reason: Moderate Pain) 7 Days Qty: 40 0RF acetaminophen 500 mg Tablet 1,000 mg PO Q8H 15 Days Qty: 90 0RF aspirin 325 mg Tablet,Delayed Release (Dr/Ec) 325 mg PO DAILY 30 Days Qty: 30 0RF Continued diclofenac sodium [Arthritis Pain (diclofenac)] 1 % gel 4 g topical QID Qty: 100 0RF Rx Instructions: apply to single knee, ankle, foot; for foot includes sole/toes/top of foot sertraline 100 mg tablet 100 mg PO DAILY topiramate 25 mg tablet 25 mg PO BID omeprazole 40 mg capsule,delayed release(DR/EC) 40 mg PO DAILY amlodipine 10 mg tablet 10 mg PO DAILY simvastatin 20 mg tablet 20 mg PO DAILY metoprolol succinate 50 mg tablet extended release 24 hr 25 mg PO DAILY trazodone 50 mg tablet 100 mg PO BEDTIME potassium chloride [K-Tab] 20 mEq tablet extended release 20 meq PO BID Qty: 10 0RF Discharge Order = DC NOW: Discharge Order (Routine); Ordered 03/10/25 Ordered By: Sabina Elias Referrals: Sabina Elias MD [Physician, Orthopedics] - 03/22/25 2:45 pm Discharge Diet: Advance as tolerated, Usual diet and As Directed Discharge Activity: Resume usual activity, Increase activity as tolerated, Limit activity as instructed, Use walker/crutches as instructed and As per PT/OT instructions Patient Instructions: Hydrocodone/Acetaminophen (By mouth), Celecoxib (By mouth), Acute Wound Care (DC), Total Knee Replacement (DC), Joint Replacement Stoplight, Opioid Safety, Post Anesthesia Care, Patient Portal & Mitali Instructions Activity Restrictions/Additional Instructions: Posterior hip precautions. Physical therapy to instruct in gait training, ambulation, and strengthening. You may shower, but do not submerge your hip in water. No swimming and no bath. 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
--- NOTE | 2025-03-10 15:22 | PC.NURSE ---
Discharge instructions provided to pt. No questions or concerns voiced at this time. Pt to private vehicle via wheelchair with all belongings.
== END 2025-03-10 15:23 | disposition home health service (06) ==
LOC: MEDSURG 13:14
PROVIDERS: Anesthesiology; Nurse Practitioner; Admitting Provider Specialist; PCP Nurse Practitioner Family; Visit Provider Specialist
PROC: 8E0Y0CZ Robotic Assisted Procedure of Lower Extremity, Open Approach (ICD-10-PCS; CPT 27447; principal; 2025-03-09 07:50)
DX: M17.12 Unilateral primary osteoarthritis, left knee (principal); K21.9 Gastro-esophageal reflux disease without esophagitis; F41.9 Anxiety disorder, unspecified; I25.10 Atherosclerotic heart disease of native coronary artery without angina pectoris; I10 Essential (primary) hypertension; E78.5 Hyperlipidemia, unspecified; E66.01 Morbid (severe) obesity due to excess calories; Z68.34 Body mass index [BMI] 34.0-34.9, adult; Z79.82 Long term (current) use of aspirin
CPT/HCPCS: 27447; 20985; 36415; 51702; 73560; 80048; 84132; 85025; 97110; 97116; 97162; 97165; 97530; A4216; C1776; G0378; J0131; J0169; J0666; J0690; J2250; J2371; J2405; J2704; J2765; J3010; J3373; J3490; J7030; J7040; J9999; P9045

== ENCOUNTER → 2025-03-22 14:11 | Outpatient (BNVA) | payer MEDICARE, SELFPAY | PROVIDERS: PCP Nurse Practitioner Family; Visit Provider Specialist | DX: Z98.890 Other specified postprocedural states (principal); Z96.652 Presence of left artificial knee joint; I82.402 Acute embolism and thrombosis of unspecified deep veins of left lower extremity | CPT/HCPCS: 73560; 73565; 99024 ==

== ENCOUNTER 2025-03-31 14:24 | Outpatient (CLI) | payer MEDICARE, SELFPAY ==
--- NOTE | 2025-03-31 14:45 | USCV_ITS ---
Evelin Crisostomo Age: 74 Gender: F : 1950 Exam Date: 03/31/2025 14:56 Ordering Phys: Sabina Elias MD Technologist: [employer] [place] [facility] [place]ication: blood clot HISTORY: Lower extremity swelling. PROCEDURES: Venous duplex imaging was performed in only the left lower extremity. FINDINGS: No evidence of DVT seen in any vessel visualized at this time. Left lower extremity Brantley's cyst noted. CONCLUSIONS No evidence of left lower extremity DVT. Left popliteal cyst with internal debris, Cyst measures 3.1 x 2.4 x 4.0 cm Trae Coffey MD (Electronically Signed) Final Date: 31 March 2025 16:02 S
== END 2025-03-31 14:25 | disposition home or self-care (01) ==
PROVIDERS: PCP Nurse Practitioner Family; Visit Provider Specialist
DX: I82.402 Acute embolism and thrombosis of unspecified deep veins of left lower extremity (principal); M71.22 Synovial cyst of popliteal space [Baker], left knee
CPT/HCPCS: 93971

== ENCOUNTER → 2025-04-21 10:23 | Outpatient (BNVA) | payer MEDICARE, SELFPAY | PROVIDERS: PCP Nurse Practitioner Family; Visit Provider Specialist | DX: Z98.890 Other specified postprocedural states (principal); Z96.652 Presence of left artificial knee joint | CPT/HCPCS: 73560; 73565; 99024 ==

== ENCOUNTER 2025-05-24 12:18 | Inpatient (IN) | payer MEDICARE, SELFPAY ==
--- OUTSIDE RECORDS SUMMARY | 2008-07-15 09:05 | XMS_ITS | Continuity of Care Document ---
Author Organization [facility] Address [address] [place] [address] Phone Care Team Providers Care Potato Inspector Name Role Phone Spencer Barry MD Unavailable Unavailable Procedures Procedure Date Office/outpatient visit,[facility] 2007 X-ray exam of neck spine2-3 views X-ray exam lower spine 2-3 views 2007 [place] consult[place] [facility] Advance Directives Directive Yes / No Effective Date File Name No Information Encounters Encounter Description Practice Location Reason(s) For Visit Diagnoses Date Provider Providers Copied on Encounter Office/outpat ient visit,[facility], [address], [id number], tel:[phone] [facility] No Information 8 Jhonny Palmer. [address] [place] [address], [id number] , [place]. tel: [phone] Initial inpatient consult, [facility], [address] [place] [address], [id number], tel:[phone] [place] [address] No Information 5200 8 Jhonny Palmer. [address] [place] [address], [id number] , [place]. tel: [phone] Family History Family Member Type Diagnosis Age At Onset No Information Payers Payer name Insurance type Covered republican ID Authoriza tion(s) Medicare [place] WPS Part B [id number] Medicaid [id number] Social History Type Description Quantity Date Captured Comments Sex Female Smoking Status No Information Chief Complaint And Reason For Visit No Information Reason For Referral Reason For Referral No Information History Of Present Illness Encounter Date Complaint History Of Prese nt Illness No Information Functional Status Date Functional Assessmen t No Information Instructions Date Instruction Additional Infor mation No Information Assessments Type Assessment Date No Information Patient Care Teams Name Effective Dates (start - stop) Status Members No Information
[2025-05-24] VITALS (23 sets, daily range): BP systolic 78–122; BP diastolic 40–71; PULSE 51–71; RESP 14–23; TEMP 36.4–36.8; O2SAT 90–99; BMI 35.3
--- NOTE | 2025-05-24 12:20 | XR_ITS ---
WS: [id number] Exam: XR chest 1V portable [id number] Date/Time of Exam: 05/24/2025 1:21 PM Reason For Exam: dyspnea/cough Comparison 06/13/2017. Lungs are clear and fully expanded. Normal cardiomediastinal silhouette and regional bony structures. XR/XR chest 1V portable [id number] IMPRESSION: 1. Negative chest.
--- OUTSIDE RECORDS SUMMARY | 2025-05-24 12:23 | XMS_ITS | Encounter Summary ---
Author Organization [facility] Address [address] [place] [address] Care Team Providers Care Form Maker Plaster Name Role Phone Vandana Jo MD Primary Care Provider Encounter Details Date Type Department Care Team (Latest Contact Info) Description 05/21/2007 Outpatient Historical [facility] Medicine [address] [phone] Zoya Willis MD NO ADDRESS ON FILE Pain in Joint, Shoulder Region (Primary Dx) Social History Tobacco Use Types Packs/Day Years Used Date Smoking Tobacco: Never Assessed Comments Unknown Sex and Gender Information Value Date Recorded Sex Assigned at Not on file Legal Sex 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 Gender Identity Not on file Sexual Orientation Not on file documented as of this encounter Plan of Treatment Not on file documented as of this encounter Visit Diagnoses Diagnosis Pain in joint, shoulder region- Primary documented in this encounter Additional Health Concerns Infection Onset Date Last Indicated Resolved Time R/O COVID-19 08/05/2020 08/05/2020 08/08/2020 1:00 AM COAL BRIQUETTE MACHINE OPERATOR documented as of this encounter Care Teams Form Maker Plaster Relationship Specialty Start Date End Date Vandana Jo MD [address] [phone] PCP - General Family Practice 10/31/12 documented as of this encounter
--- OUTSIDE RECORDS SUMMARY | 2025-05-24 12:23 | XMS_ITS | Encounter Summary ---
Author Organization [facility] Address [address] [place] [address] Care Team Providers Care Feeder Loader Name Role Phone Vandana Jo MD Primary Care Provider Encounter Details Date Type Department Care Team (Latest Contact Info) Description 1998 Outpatient Historical [facility] MD Eyad STEWART Arlen D NO ADDRESS ON FILE Hypertrophy of breast (Primary Dx) Social History Tobacco Use Types Packs/Day Years Used Date Smoking Tobacco: Never Assessed Comments Unknown Sex and Gender Information Value Date Recorded Sex Assigned at Not on file Legal Sex Female 5:36 AM TERMINAL BLOCK ASSEMBLER Gender Identity Not on file Sexual Orientation Not on file documented as of this encounter Plan of Treatment Not on file documented as of this encounter Visit Diagnoses Diagnosis Hypertrophy of breast- Primary documented in this encounter Additional Health Concerns Infection Onset Date Last Indicated Resolved Time R/O COVID-19 08/05/2020 08/05/2020 08/08/2020 1:00 AM TERMINAL BLOCK ASSEMBLER documented as of this encounter Care Teams Feeder Loader Relationship Specialty Start Date End Date Vandana Jo MD [address] [facility] [address] [place] [phone] PCP - General Family Practice 10/31/12 documented as of this encounter
--- OUTSIDE RECORDS SUMMARY | 2025-05-24 12:23 | XMS_ITS | Encounter Summary ---
Author Organization [facility] Address [address] [place] [address] Care Team Providers Care Optometry Teacher Name Role Phone Vandana Jo MD Primary Care Provider [phone] Encounter Details Date Type Department Care Team (Late st Contact Info) Description 09/11/2007 Outpatient Historical [facility] Orthopedics- 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 Gender Identity Not on file Sexual Orientation Not on file documented as of this encounter Plan of Treatment Not on file documented as of this encounter Visit Diagnoses Not on filedocumented in this encounter Additional Health Concerns Infection Onset Date Last Indicated Resolved Time R/O COVID-19 08/05/2020 08/05/2020 08/08/2020 1:00 AM SCHEDULING SPECIALIST documented as of this encounter Care Teams Optometry Teacher Relationship Specialty Start Date End Date Vandana Jo MD [address] [facility] [address] [place] [phone] PCP - General Family Practice 10/31/12 documented as of this encounter
--- OUTSIDE RECORDS SUMMARY | 2025-05-24 12:23 | XMS_ITS | Encounter Summary ---
Author Organization [facility] Address [address] [place] [address] Care Team Providers Care Wafer Fab Technician Name Role Phone Vandana Jo MD Primary Care Provider Encounter Details Date Type Department Care Team (Latest Contact Info) Description 05/15/2007 Outpatient Historical [facility] Family Medicine [place] [address] [phone] Zoya Willis MD NO ADDRESS ON FILE Other Malaise and Fatigue (Primary Dx); Coronary Atherosclerosis of [place] Coronary Artery; Unspecified Essential Hypertension Social History Tobacco Use Types Packs/Day Years Used Date Smoking Tobacco: Never Assessed Comments Unknown Sex and Gender Information Value Date Recorded Sex Assigned at Not on file 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 Gender Identity Not on file Sexual Orientation Not on file documented as of this encounter Plan of Treatment Not on file documented as of this encounter Visit Diagnoses Diagnosis Other malaise and fatigue- Primary Coronary atherosclerosis of [place] coronary artery Unspecified essential hypertension documented in this encounter Additional Health Concerns Infection Onset Date Last Indicated Resolved Time R/O COVID-19 08/05/2020 08/05/2020 08/08/2020 1:00 AM HOT PIPE GAUGER documented as of this encounter Care Teams Wafer Fab Technician Relationship Specialty Start Date End Date Vandana Jo MD [address] [phone] PCP - General Family Practice 10/31/12 documented as of this encounter
--- OUTSIDE RECORDS SUMMARY | 2025-05-24 12:23 | XMS_ITS | Continuity of Care Document ---
Author Organization [facility] Address [address] [place] [address] Care Team Providers Care Sharepoint Designer Developer Name Role Phone Dr. Ron Varner DO Attending Physician [phone] Medications Medication Frequency Instructions Diagnosis Start Date End Date Last Administered albuterol sulfate 90 mcg/actuation HFA aerosol inhaler Every 6 Hours - PRN 2 puffs, inhalation, Every 6 Hours - PRN, for SOB / wheezing 05/17/2005/19/2025 09:59 PM albuterol sulfate 2.5 mg /3 mL (0.083 %) solution for nebulization Every 6 Hours - PRN 1 neb, inhalation, Every 6 Hours - PRN, for sob or wheezing 05/17/2005/20/2025 04:45 PM atorvastatin 40 mg tablet At Bedtime 1 tab, oral, At Bedtime 05/17/2005/23/2025 06:22 PM buspirone 10 mg tablet Three Times A Day 1 tab, oral, Three Times A Day 05/17/2005/24/2025 07:06 AM cholecalciferol (vitamin D3) 1,250 mcg (50,000 unit) capsule Once A Day on Sat 1 cap, oral, Once A Day on Sat, TI for ergocalciferol 05/17/20 25 05/22/2025 07:11 AM Daily-[place] (with folic acid) (multivitamin with folic acid) 400 mcg tablet Once A Day 1 tab, oral, Once A Day 05/17/20 25 05/24/2025 07:06 AM diclofenac sodium 1 % gel Four Times A Day 4 grams, topical, Four Times A Day, apply to affected area(s) 05/17/20 25 05/23/2025 10:00 PM Dulcolax (bisacodyl) (bisacodyl) 10 mg suppository Once A Day - PRN 1 suppository, rectal, Once A Day - PRN, Give rectally if can't take p/o, if no results from MOM 05/17/20 famotidine 20 mg tablet Twice A Day 1 tab, oral, Twice A Day 05/17/2005/24/2025 07:06 AM ferrous sulfate 325 mg (65 mg iron) tablet Once A Day Every Other Day 1 tab, oral, Once A Day Every Other Day, dosing per ti 05/18/2005/24/2025 07:06 AM hydrocodone-acetam inophen 10-325 mg tablet Every 4 Hours - PRN 1 tab, oral, Every 4 Hours - PRN, exempt R52, for pain 05/17/2005/23/2025 11:01 PM lactulose 10 gram/15 mL solution Three Times A Day - PRN 30 mL (20 grams), oral, Three Times A Day - PRN, for constipation 05/17/20 magnesium oxide 400 mg (241.3 mg magnesium) tablet Once A Day 1 tab, oral, Once A Day, TI for magnesium 05/17/20 25 05/24/2025 07:06 AM omeprazole 40 mg capsule,delayed release(DR/EC) Once A Day 1 cap, oral, Once A Day 05/17/20 25 05/24/2025 07:06 AM potassium chloride 20 mEq tablet extended release Twice A Day 1 tab, oral, Twice A Day 05/17/2005/24/2025 07:06 AM pregabalin 75 mg capsule Every 8 Hours 1 cap, oral, Every 8 Hours, exempt R52 05/17/2005/24/2025 07:08 AM sertraline 100 mg tablet Once A Day 1 tab, oral, Once A Day 05/17/2005/24/2025 07:06 AM topiramate 25 mg tablet Twice A Day 1 tab, oral, Twice A Day 05/17/2005/24/2025 07:06 AM trazodone 100 mg tablet At Bedtime 1 tab, oral, At Bedtime 05/17/2005/23/2025 06:22 PM Arexvy (PF) (rsvpref3 antigen-as01e (pf)) 120 mcg/0.5 mL suspension for reconstitution Once - One Time 0.5ml, intramuscular, Once - One Time 05/20/202024 Tubersol (tuberculin ppd) 5 tub. unit /0.1 mL solution Once - One Time 0.1ml, intradermal, Once - One Time, Administer the morning after admission 05/18/20202405/18/2025 11:58 AM Tylenol (acetaminophen) 325 mg tablet Every 6 Hours - PRN 2 tabs/650mg, oral, Every 6 Hours - PRN, as needed for PRN pain/increased temp May give rectally if necessary 05/17/202024 Problems Code Type Problem ICD Code Effective Date Status ICD-10 Encounter for other orthopedic aftercare Z47.89 05/17/2025 Active ICD-10 Arthrodesis status Z98.1 05/17/2025 Active ICD-10 Fusion of spine, lumbar region M43.26 05/17 Active ICD-10 Difficulty in walkin g, not elsewhere classified R26.2 05/18/2025 Active ICD-10 Muscle weakness (generalized) M62.81 2024 Active ICD-10 Spinal stenosis, lum bar region with neurogenic claudication M48.062 05/17/2025 Active ICD-10 Atherosclerotic hear t disease of [place] coronary artery without angina pectoris I25.10 05/17/2025 Active ICD-10 Presence of coronary angioplasty implant and graft Z95.5 05/17/2025 Active ICD-10 Essential (primary) hypertension I10 Active ICD-10 Personal history of nicotine dependence Z87.891 05/17/2025 Active ICD-10 Anemia, unspecified D64.9 05/20/2025 Activ e ICD-10 Major depressive dis order, single episode, unspecified F32.9 05/17/2025 Active ICD-10 Generalized anxiety disorder F41.1 025 Active ICD-10 Insomnia, unspecified G47.00 05/20/2025 Act ino ICD-10 Claustrophobia F40.240 05/17/2025 Active ICD-10 Hyperlipidemia, unspecified E78.5 05/17/20 25 Active ICD-10 Unspecified osteoarthritis, unspecified site M1 9.90 05/17/2025 Active ICD-10 Bursitis of right shoulder M75.51 Active ICD-10 Headache, unspecified R51.9 05/17/2025 Act ino ICD-10 Hypokalemia E87.6 05/20/2025 Active ICD-10 Magnesium deficiency E61.2 05/20/2025 Acti ve ICD-10 Gastro-esophageal re flux disease without esophagitis K21.9 05/17/2025 Active ICD-10 Obesity, unspecified E66.9 05/17/2025 Acti ve ICD-10 Body mass index [BMI] 32.0-32.9, adult Z68.32 05/17/2025 Active Current Allergies and Intolerances Category Substance Type Reaction Severity Begin Date Status Drug allergy acetaminophen Allergy 05/17/2025 Ac tive Drug allergy diphenhydramine (bulk) Allergy 05/03 Active Drug allergy diphenhydramine HCl Allergy 025 Active Drug allergy hydromorphone Allergy 05/17/2025 Ac tive Drug allergy lisinopril Allergy 05/17/2025 Activ e Drug allergy Milk Containing Prod ucts (Dairy) Allergy 05/17/2025 Active Drug allergy morphine Allergy 05/17/2025 Active Drug allergy oxycodone Allergy 05/17/2025 Active Drug allergy Percocet Allergy 05/17/2025 Active Drug allergy prochlorperazine Allergy 05/17/2025 Active Drug allergy Propoxyphene Allergy 05/17/2025 Act ino Vital Signs Height: 60.0 in Date / Time Temperature Pulse (per minute) Respirations (per minute) Systolic BP (mmHg) Diastolic BP (mmHg) O2 Saturation (%) Weight BMI 2024 07:08 AM 97.6 F 70 18 118 65 93.0 2024 08:58 PM 96.9 F 72 16 109 66 97.0 2024 10:04 AM 98.0 F 60 18 103 61 96.0 2024 03:38 PM 97.8 F 81 21 118 62 92.0 2024 08:26 PM 98.6 F 66 23 122 65 98.0 2024 06:09 PM 98.6 F 93 19 115 87 97.0 2024 07:45 PM 98.2 F 77 18 132 84 2024 06:40 PM 83 20 90.0 2024 06:39 PM 98.2 F 2024 04:44 PM 92.0 2024 04:34 PM 80 22 2024 04:23 PM 171.8 lbs 33.5 5 2024 11:25 AM 97.9 F 74 19 112 63 95.0 2024 12:07 AM 94.0 2024 08:21 PM 98.2 F 154 69 2024 03:54 PM 92 58 2024 12:54 PM 169.8 lbs 33.1 6 2024 01:31 PM 164.0 lbs 32.0 3 2024 08:51 PM 164.2 lbs 32.0 6 Advance Directives Directive Note Full Code Insurance Providers Payer Policy type Group Name Group number Policy ID Address Ph one Medicare Part A Medicare Part A [id number] Phone: Fax: [employer] [place] [employer] Medicare Part A [id number] Phone: Fax: Private Private Phone: Fax: Private Copay - Ins/HMO Private Phone: Fax: Private Interest Private Phone: Fax: Immunizations Vaccine Hematology Supervisor Date Status Dose Series Complete COVID-19 Vaccine [employer] 08/30/2021 Completed COVID-19 Vaccine [employer] 01/05/2021 Completed COVID-19 Vaccine [employer] 12/09/2020 Completed COVID-19 Vaccine 05/18/2025 Refused Influenza Vaccine 05/18/2025 Refused Pneumococcal Vaccine 05/18/2025 Refused RSV Vaccine [employer] 05/20/2025 Completed Procedures Not available for this record Results Name Date Time Positive/Negative Value Unit Range TB test 05/18/2025 Negative 0.0 mm Goals Goal Date Will have positive responses to activities of my choice weekly through next assessment. 07/19/2025 Will have a BM at least ever y 3 days for 120 days since update/last review AND/OR will not experience any complications r/t to colostomy for 120 days from update/ last review AND/OR Will not experience any GI complications for 120 days since update/last review AND/OR Will remain clean, dry between incontinent episodes thru 120days from update/last review 08/16/2025 ADL approaches will meet the resident?s needs to enhance ability, maintain abilities, or provide quality. 08/18/2025 Evelin will maintain or improve nutrition al status through next review 08/18/2025 Encounters Admission Date Discharge Date Description MRN Visit Count 05/17/2025 19:21 LTPAC Admission [id number]
--- OUTSIDE RECORDS SUMMARY | 2025-05-24 12:23 | XMS_ITS | Encounter Summary ---
Author Organization [facility] Address [address] [place] [address] Care Team Providers Care Post Graduate Intern Name Role Phone Vandana Jo MD Primary Care Provider Encounter Details Date Type Department Care Team (Late st Contact Info) Description 09/09/2007 Outpatient Historical [facility] Family Medicine [address] [phone] Noam Vigil DO NO ADDRESS ON FILE Social History Tobacco Use Types Packs/Day Years Used Date Smoking Tobacco: Never Assessed Comments Unknown Sex and Gender Information Value Date Recorded Sex Assigned at Not on file Legal Sex Female 5:36 AM UNIVERSITY COUNSELOR Gender Identity Not on file Sexual Orientation Not on file documented as of this encounter Plan of Treatment Not on file documented as of this encounter Visit Diagnoses Not on filedocumented in this encounter Additional Health Concerns Infection Onset Date Last Indicated Resolved Time R/O COVID-19 08/05/2020 08/05/2020 08/08/2020 1:00 AM UNIVERSITY COUNSELOR documented as of this encounter Care Teams Post Graduate Intern Relationship Specialty Start Date End Date Vandana Jo MD [address] [phone] PCP - General Family Practice 10/31/12 documented as of this encounter
--- OUTSIDE RECORDS SUMMARY | 2025-05-24 12:23 | XMS_ITS | Encounter Summary ---
Author Organization [facility] Address [address] [place] [address] Care Team Providers Care Ethanol Operator Name Role Phone Vandana Jo MD Primary Care Provider Encounter Details Date Type Department Care Team (Late st Contact Info) Description 09/04/2007 Outpatient Historical [facility] Family Medicine [address] [phone] Zoya Willis MD NO ADDRESS ON FILE Social History Tobacco Use Types Packs/Day Years Used Date Smoking Tobacco: Never Assessed Comments Unknown Sex and Gender Information Value Date Recorded Sex Assigned at Not on file Legal Sex Female 5:36 AM CONTACT REPRESENTATIVE Gender Identity Not on file Sexual Orientation Not on file documented as of this encounter Plan of Treatment Not on file documented as of this encounter Visit Diagnoses Not on filedocumented in this encounter Additional Health Concerns Infection Onset Date Last Indicated Resolved Time R/O COVID-19 08/05/2020 08/05/2020 08/08/2020 1:00 AM CONTACT REPRESENTATIVE documented as of this encounter Care Teams Ethanol Operator Relationship Specialty Start Date End Date Vandana Jo MD [address] [phone] PCP - General Family Practice 10/31/12 documented as of this encounter
--- OUTSIDE RECORDS SUMMARY | 2025-05-24 12:23 | XMS_ITS | Encounter Summary ---
Author Organization [email or web address] [facility] Address [address] [place] [address] Care Team Providers Care Baker Laboratory Name Role Phone Vandana Jo MD Primary Care Provider Encounter Details Date Type Department Care Team (Late st Contact Info) Description 06/06/2012 Ancillary Orders [employer] [facility] [address] [place] [address] Pavel Gan, VINNIE [address], [place] [address] Foot pain Social History Tobacco Use Types Packs/Day Years Used Date Smoking Tobacco: Former Cigarettes 1 20 1 - 06/16/2002 Smokeless Tobacco: Never Alcohol Use Standard Drinks/Week Comments Yes 1.7 (1 standard drink = 0.6 oz p ure alcohol) Comments No Sex and Gender Information Value Date Recorded Sex Assigned at Not on file Legal Sex Female 5:36 AM LEGAL SUPPORT ASSISTANT Gender Identity Not on file Sexual Orientation Not on file documented as of this encounter Plan of Treatment Not on file documented as of this encounter Results * XR FOOT 3+ VW LEFT (06/06/2012 3:52 PM CDT) Anatomical Region Laterality Modality Ankle / Foot Computed Radiogr aphy 06/06/2012 3:35 PM CDT Narrative 06/08/2012 11:29 PM CDT DESCRIPTION AP, oblique, and lateral views of the left foot 06 June 2012 show clothing artifact partially overlapping the region of interest. There is degenerative change of the great toe metatarsal phalangeal joint, with narrowing of the joint space and mild eburnation of the articular surfaces. There small osteophytes anteromedially. On the lateral view there is flattening of the plantar arch and osteophyte of the plantar tendon enthesis at the calcaneus. IMPRESSION 1. flattening of the plantar arch 2. osteoarthritis as described Procedure Note Pipo Velazquez MD - 06/08/2012 DESCRIPTION AP, oblique, and lateral views of the left foot 06 June 2012 show clothing artifact partially overlapping the region of interest. There is degenerative change of the great toe metatarsal phalangeal joint, with narrowing of the joint space and mild eburnation of the articular surfaces. There small osteophytes anteromedially. On the lateral view there is flattening of the plantar arch and osteophyte of the plantar tendon enthesis at the calcaneus. IMPRESSION 1. flattening of the plantar arch 2. osteoarthritis as described Pavel Gan [facility] DIAGNOSTIC IMAGING ORDERABLE S Final Result documented in this encounter Visit Diagnoses Diagnosis Foot pain Pain in limb Foot pain Pain in limb documented in this encounter Additional Health Concerns Infection Onset Date Last Indicated Resolved Time R/O COVID-19 08/05/2020 08/05/2020 08/08/2020 1:00 AM LEGAL SUPPORT ASSISTANT documented as of this encounter Care Teams Baker Laboratory Relationship Specialty Start Date End Date Vandana Jo MD [address] [facility] [place] [phone] PCP - General Family Practice 10/31/12 documented as of this encounter
--- OUTSIDE RECORDS SUMMARY | 2025-05-24 12:24 | XMS_ITS | Encounter Summary ---
Author Organization [facility] Address [address] [place] [address] Care Team Providers Care Wax Cutter Name Role Phone Vandana Jo MD Primary Care Provider Encounter Details Date Type Department Care Team (Latest Contact Info) Description 11/14/2006 Outpatient Historical [facility] Orthopedics- [address] [place] [address] Salomon Delgado MD [address] [place] [address] Primary Localized Osteoarthrosis, Lower Leg (Primary Dx); Pain in Joint, Lower Leg Social History Tobacco Use Types Packs/Day Years Used Date Smoking Tobacco: Never Assessed Comments Unknown Sex and Gender Information Value Date Recorded Sex Assigned at Not on file Legal Sex Female 5:36 AM HVAC FIELD SERVICE TECHNICIAN Gender Identity Not on file Sexual Orientation Not on file documented as of this encounter Plan of Treatment Not on file documented as of this encounter Visit Diagnoses Diagnosis Primary localized osteoarthrosis, lower leg- Primary Pain in joint, lower leg documented in this encounter Additional Health Concerns Infection Onset Date Last Indicated Resolved Time R/O COVID-19 08/05/2020 08/05/2020 08/08/2020 1:00 AM HVAC FIELD SERVICE TECHNICIAN documented as of this encounter Care Teams Wax Cutter Relationship Specialty Start Date End Date Vandana Jo MD [address] [facility] [place] [phone] PCP - General Family Practice 10/31/12 documented as of this encounter
--- OUTSIDE RECORDS SUMMARY | 2025-05-24 12:24 | XMS_ITS | Encounter Summary ---
Author Organization [facility] Address [address] [place] [address] Care Team Providers Care Bullet Maker Name Role Phone Vandana Jo MD Primary Care Provider Encounter Details Date Type Department Care Team (Late st Contact Info) Description 09/24/2005 Outpatient Historical [facility] Family Medicine- [place] [address] [email or web address] [address] Social History Tobacco Use Types Packs/Day Years Used Date Smoking Tobacco: Never Assessed Comments Unknown Sex and Gender Information Value Date Recorded Sex Assigned at Not on file Legal Sex Female 5:36 AM RAILROAD SURVEYOR Gender Identity Not on file Sexual Orientation Not on file documented as of this encounter Plan of Treatment Not on file documented as of this encounter Visit Diagnoses Not on filedocumented in this encounter Additional Health Concerns Infection Onset Date Last Indicated Resolved Time R/O COVID-19 08/05/2020 08/05/2020 08/08/2020 1:00 AM RAILROAD SURVEYOR documented as of this encounter Care Teams Bullet Maker Relationship Specialty Start Date End Date Vandana Jo MD [address] [facility] [address] [place] [address] PCP - General Family Practice 10/31/12 documented as of this encounter
--- OUTSIDE RECORDS SUMMARY | 2025-05-24 12:24 | XMS_ITS | Encounter Summary ---
Author Organization [facility] Address [address] [place] [address] Care Team Providers Care Boilermaker Name Role Phone Vandana Jo MD Primary Care Provider [phone] Encounter Details Date Type Department Care Team (Latest Contact Info) Description 01/21/2006 Outpatient Historical [facility] Cardiology- [place] [address] [place] [address] Teodoro Farfan MD [address] [facility] [address] [place] [address] Coronary Atherosclerosis of [place] Coronary Artery (Primary Dx); Unspecified Chest Pain; Pure Hypercholesterolem Social History Tobacco Use Types Packs/Day Years Used Date Smoking Tobacco: Never Assessed Comments Unknown Sex and Gender Information Value Date Recorded Sex Assigned at Not on file Legal Sex Female 5:36 AM PATHOLOGY SPECIALIST Gender Identity Not on file Sexual Orientation Not on file documented as of this encounter Plan of Treatment Not on file documented as of this encounter Visit Diagnoses Diagnosis Coronary atherosclerosis of [place] coronary artery- Primary Chest pain, unspecified Pure hypercholesterolem Pure hypercholesterolemia documented in this encounter Additional Health Concerns Infection Onset Date Last Indicated Resolved Time R/O COVID-19 08/05/2020 08/05/2020 08/08/2020 1:00 AM PATHOLOGY SPECIALIST documented as of this encounter Care Teams Boilermaker Relationship Specialty Start Date End Date Vandana Jo MD [address] [facility] [address] [place] [address] PCP - General Family Practice 10/31/12 documented as of this encounter
--- OUTSIDE RECORDS SUMMARY | 2025-05-24 12:24 | XMS_ITS | Encounter Summary ---
Author Organization [facility] Address [address] [place] [address] Care Team Providers Care Hose Wrapper Name Role Phone Vandana Jo MD Primary Care Provider Encounter Details Date Type Department Care Team (Latest Contact Info) Description 07/24/2004 Outpatient Historical [facility] [address] [place] [address] AMBULANCE, [facility] CHEST PAIN NOS (Primary Dx) Social History Tobacco Use Types Packs/Day Years Used Date Smoking Tobacco: Never Assessed Comments Unknown Sex and Gender Information Value Date Recorded Sex Assigned at Not on file Legal Sex Female 5:36 AM MINERAL RESOURCES INSPECTOR Gender Identity Not on file Sexual Orientation Not on file documented as of this encounter Plan of Treatment Not on file documented as of this encounter Visit Diagnoses Diagnosis Chest pain, unspecified- Primary documented in this encounter Additional Health Concerns Infection Onset Date Last Indicated Resolved Time R/O COVID-19 08/05/2020 08/05/2020 08/08/2020 1:00 AM MINERAL RESOURCES INSPECTOR documented as of this encounter Care Teams Hose Wrapper Relationship Specialty Start Date End Date Vandana Jo MD [address] [phone] PCP - General Family Practice 10/31/12 documented as of this encounter
--- OUTSIDE RECORDS SUMMARY | 2025-05-24 12:24 | XMS_ITS | Encounter Summary ---
Author Organization [employer] [facility] Address [address] [place] [address] Care Team Providers Care Food Cart Attendant Name Role Phone Vandana Jo MD Primary Care Provider Encounter Details Date Type Department Care Team (Latest Contact Info) Description 11/20/1999 Outpatient Historical [facility] Eliazar Wild NO ADDRESS ON FILE Obesity, unspecified (Primary Dx); Screening for other and unspecified endocrine, nutritional, metabolic and immunity disorders; Screening for thyroid disorder Social History Tobacco Use Types Packs/Day Years Used Date Smoking Tobacco: Never Assessed Comments Unknown Sex and Gender Information Value Date Recorded Sex Assigned at Not on file Legal Sex Female 5:36 AM MIXER CRANE OPERATOR Gender Identity Not on file Sexual Orientation Not on file documented as of this encounter Plan of Treatment Not on file documented as of this encounter Visit Diagnoses Diagnosis Obesity, unspecified- Primary Screening for other and unspecified endocrine, nutritional, metabolic and immunity disorders Screening for thyroid disorder documented in this encounter Additional Health Concerns Infection Onset Date Last Indicated Resolved Time R/O COVID-19 08/05/2020 08/05/2020 08/08/2020 1:00 AM MIXER CRANE OPERATOR documented as of this encounter Care Teams Food Cart Attendant Relationship Specialty Start Date End Date Vandana Jo MD [address] [facility] [place] [address] PCP - General Family Practice 10/31/12 documented as of this encounter
--- OUTSIDE RECORDS SUMMARY | 2025-05-24 12:24 | XMS_ITS | Encounter Summary ---
Author Organization [facility] Address [address] [place] [address] Care Team Providers Care Thinner Sprayer Name Role Phone Vandana Jo MD Primary Care Provider Encounter Details Date Type Department Care Team (Latest Contact Info) Description 10/05/2005 Outpatient Historical [facility] Family Medicine- [place] [address] [place] [address] Zoya Willis MD NO ADDRESS ON FILE BIPOLAR - MOST RECENT EPISODE UNSPECIFIED (CMS/HCC) (Primary Dx); LUMBAGO Social History Tobacco Use Types Packs/Day Years Used Date Smoking Tobacco: Never Assessed Comments Unknown Sex and Gender Information Value Date Recorded Sex Assigned at Not on file Legal Sex Female 5:36 AM ENVIRONMENTAL COMPLIANCE TECHNICIAN Gender Identity Not on file Sexual Orientation Not on file documented as of this encounter Plan of Treatment Not on file documented as of this encounter Visit Diagnoses Diagnosis Bipolar I disorder, most recent episode (or current) unspecified (CMS/HCC)- Primary Bipolar I disorder, most recent episode (or current) unspecified Lumbago documented in this encounter Additional Health Concerns Infection Onset Date Last Indicated Resolved Time R/O COVID-19 08/05/2020 08/05/2020 08/08/2020 1:00 AM ENVIRONMENTAL COMPLIANCE TECHNICIAN documented as of this encounter Care Teams Thinner Sprayer Relationship Specialty Start Date End Date Vandana Jo MD [address] [facility] [address] [place] [phone] PCP - General Family Practice 10/31/12 documented as of this encounter
--- OUTSIDE RECORDS SUMMARY | 2025-05-24 12:24 | XMS_ITS | Encounter Summary ---
Author Organization [facility] Address [address] [place] [address] Care Team Providers Care Rcis Name Role Phone Vandana Jo MD Primary Care Provider Encounter Details Date Type Department Care Team (Latest Contact Info) Description 10/16/2002 Outpatient Historical [facility] Vickey Tam MD [address] [place] [phone] Plantar fibromatosis (Primary Dx); ALOPECIA NOS; DEPRESSIVE DISORDER NEC Social History Tobacco Use Types Packs/Day Years Used Date Smoking Tobacco: Never Assessed Comments Unknown Sex and Gender Information Value Date Recorded Sex Assigned at Not on file Legal Sex Female 5:36 AM PROFESSIONAL SERVICES SPECIALIST Gender Identity Not on file Sexual Orientation Not on file documented as of this encounter Plan of Treatment Not on file documented as of this encounter Visit Diagnoses Diagnosis Plantar fibromatosis- Primary Plantar fascial fibromatosis Alopecia, unspecified Depressive disorder, not elsewhere classified documented in this encounter Additional Health Concerns Infection Onset Date Last Indicated Resolved Time R/O COVID-19 08/05/2020 08/05/2020 08/08/2020 1:00 AM PROFESSIONAL SERVICES SPECIALIST documented as of this encounter Care Teams Rcis Relationship Specialty Start Date End Date Vandana Jo MD [address] [facility] [address] [place] [phone] PCP - General Family Practice 10/31/12 documented as of this encounter
--- OUTSIDE RECORDS SUMMARY | 2025-05-24 12:24 | XMS_ITS | Encounter Summary ---
Author Organization [facility] Address [address] [place] [address] Care Team Providers Care Scenario Writer Name Role Phone Vandana Jo MD Primary Care Provider Encounter Details Date Type Department Care Team (Latest Contact Info) Description 04/06/2004 [facility] [address] [address] Evan Kenney NP NO ADDRESS ON FILE Pain in limb (Primary Dx); EXOSTOSIS, SITE NOS; JOINT PAIN-L/LEG Social History Tobacco Use Types Packs/Day Years Used Date Smoking Tobacco: Never Assessed Comments Unknown Sex and Gender Information Value Date Recorded Sex Assigned at Not on file Legal Sex Female 5:36 AM SPOOL CLEANER Gender Identity Not on file Sexual Orientation Not on file documented as of this encounter Plan of Treatment Not on file documented as of this encounter Visit Diagnoses Diagnosis Pain in limb- Primary Pain in soft tissues of limb Exostosis of unspecified site Pain in joint, lower leg documented in this encounter Additional Health Concerns Infection Onset Date Last Indicated Resolved Time R/O COVID-19 08/05/2020 08/05/2020 08/08/2020 1:00 AM SPOOL CLEANER documented as of this encounter Care Teams Scenario Writer Relationship Specialty Start Date End Date Vandana Jo MD [address] [phone] PCP - General Family Practice 10/31/12 documented as of this encounter
--- OUTSIDE RECORDS SUMMARY | 2025-05-24 12:24 | XMS_ITS | Encounter Summary ---
Author Organization [facility] Address [address] [place] [address] Care Team Providers Care Tractor Technician Name Role Phone Vandana Jo MD Primary Care Provider Encounter Details Date Type Department Care Team (Latest Contact Info) Description 03/29/2004 Outpatient Historical [facility] Medicine [place] [address] [address] Zoya Willis MD NO ADDRESS ON FILE DEPRESSIVE DISORDER NEC (Primary Dx); ANXIETY STATE NOS; SYMPTOMATIC FEMALE CLIMACTERIC STATE Social History Tobacco Use Types Packs/Day Years Used Date Smoking Tobacco: Never Assessed Comments Unknown Sex and Gender Information Value Date Recorded Sex Assigned at Not on file Legal Sex Female 5:36 AM HOME MORTGAGE DISCLOSURE ACT SPECIALIST Gender Identity Not on file Sexual Orientation Not on file documented as of this encounter Plan of Treatment Not on file documented as of this encounter Visit Diagnoses Diagnosis Depressive disorder, not elsewhere classified- Primary Anxiety state, unspecified Symptomatic menopausal or female climacteric states documented in this encounter Additional Health Concerns Infection Onset Date Last Indicated Resolved Time R/O COVID-19 08/05/2020 08/05/2020 08/08/2020 1:00 AM HOME MORTGAGE DISCLOSURE ACT SPECIALIST documented as of this encounter Care Teams Tractor Technician Relationship Specialty Start Date End Date Vandana Jo MD [address] [phone] PCP - General Family Practice 10/31/12 documented as of this encounter
--- OUTSIDE RECORDS SUMMARY | 2025-05-24 12:24 | XMS_ITS | Encounter Summary ---
Author Organization [facility] Address [address] [place] [address] Care Team Providers Care Merchandise Clerk Name Role Phone Vandana Jo MD Primary Care Provider Encounter Details Date Type Department Care Team (Latest Contact Info) Description 05/19/2004 Outpatient Historical [facility] [address] [place] [address] [facility]BULANCE, [facility] CHEST PAIN NOS (Primary Dx) Social History Tobacco Use Types Packs/Day Years Used Date Smoking Tobacco: Never Assessed Comments Unknown Sex and Gender Information Value Date Recorded Sex Assigned at Not on file Legal Sex Female 5:36 AM ORTHODONTIC LAB TECHNICIAN Gender Identity Not on file Sexual Orientation Not on file documented as of this encounter Plan of Treatment Not on file documented as of this encounter Visit Diagnoses Diagnosis Chest pain, unspecified- Primary documented in this encounter Additional Health Concerns Infection Onset Date Last Indicated Resolved Time R/O COVID-19 08/05/2020 08/05/2020 08/08/2020 1:00 AM ORTHODONTIC LAB TECHNICIAN documented as of this encounter Care Teams Merchandise Clerk Relationship Specialty Start Date End Date Vandana Jo MD [address] [phone] PCP - General Family Practice 10/31/12 documented as of this encounter
--- OUTSIDE RECORDS SUMMARY | 2025-05-24 12:24 | XMS_ITS | Encounter Summary ---
Author Organization [facility] Address [address] [place] [address] Care Team Providers Care Chain Sales Consultant Name Role Phone Vandana Jo MD Primary Care Provider Encounter Details Date Type Department Care Team (Latest Contact Info) Description 10/04/1999 Outpatient Historical [facility] Eliazar Wild NO ADDRESS ON FILE Other diseases of trachea and bronchus, not elsewhere classified (Primary Dx); Bronchopneumonia, organism unspecified Social History Tobacco Use Types Packs/Day Years Used Date Smoking Tobacco: Never Assessed Comments Unknown Sex and Gender Information Value Date Recorded Sex Assigned at Not on file Legal Sex Female 5:36 AM PROFILING MACHINE OPERATOR Gender Identity Not on file Sexual Orientation Not on file documented as of this encounter Plan of Treatment Not on file documented as of this encounter Visit Diagnoses Diagnosis Other diseases of trachea and bronchus, not elsewhere classified- Primary Bronchopneumonia, organism unspecified documented in this encounter Additional Health Concerns Infection Onset Date Last Indicated Resolved Time R/O COVID-19 08/05/2020 08/05/2020 08/08/2020 1:00 AM PROFILING MACHINE OPERATOR documented as of this encounter Care Teams Chain Sales Consultant Relationship Specialty Start Date End Date Vandana Jo MD [address] [facility] [address] [place] [address] PCP - General Family Practice 10/31/12 documented as of this encounter
--- OUTSIDE RECORDS SUMMARY | 2025-05-24 12:24 | XMS_ITS | Encounter Summary ---
Author Organization [facility] Address [address] [place] [address] Care Team Providers Care Stone Processing Machine Operator Name Role Phone Vandana Jo MD Primary Care Provider Encounter Details Date Type Department Care Team (Late st Contact Info) Description 06/22/2004 Outpatient Historical [facility] Cardiology- [place] [address] [place] [address] Teodoro Farfan MD [address] [facility] [address] [place] [address] Old myocardial infarct (Primary Dx); Pure hypercholesterolem; HYPERTENSION NOS Social History Tobacco Use Types Packs/Day Years Used Date Smoking Tobacco: Never Assessed Comments Unknown Sex and Gender Information Value Date Recorded Sex Assigned at Not on file Legal Sex Female 5:36 AM TOE FORMER Gender Identity Not on file Sexual Orientation Not on file documented as of this encounter Plan of Treatment Not on file documented as of this encounter Visit Diagnoses Diagnosis Old myocardial infarct- Primary Old myocardial infarction Pure hypercholesterolem Pure hypercholesterolemia Unspecified essential hypertension documented in this encounter Additional Health Concerns Infection Onset Date Last Indicated Resolved Time R/O COVID-19 08/05/2020 08/05/2020 08/08/2020 1:00 AM TOE FORMER documented as of this encounter Care Teams Stone Processing Machine Operator Relationship Specialty Start Date End Date Vandana Jo MD [address] [place] [phone] PCP - General Family Practice 10/31/12 documented as of this encounter
--- OUTSIDE RECORDS SUMMARY | 2025-05-24 12:24 | XMS_ITS | Encounter Summary ---
Author Organization [facility] Address [address] [place] [address] Care Team Providers Care Digital Marketing Project Manager Name Role Phone Vandana Jo MD Primary Care Provider Encounter Details Date Type Department Care Team (Late st Contact Info) Description 10/13/1999 Outpatient Historical HIS [facility] Social History Tobacco Use Types Packs/Day Years Used Date Smoking Tobacco: Never Assessed Comments Unknown Sex and Gender Information Value Date Recorded Sex Assigned at Not on file Legal Sex Female 5:36 AM CORPORATE TRAVEL AGENT Gender Identity Not on file Sexual Orientation Not on file documented as of this encounter Plan of Treatment Not on file documented as of this encounter Visit Diagnoses Not on filedocumented in this encounter Additional Health Concerns Infection Onset Date Last Indicated Resolved Time R/O COVID-19 08/05/2020 08/05/2020 08/08/2020 1:00 AM CORPORATE TRAVEL AGENT documented as of this encounter Care Teams Digital Marketing Project Manager Relationship Specialty Start Date End Date Vandana Jo MD [address] [facility] [address] [place] [address] PCP - General Family Practice 10/31/12 documented as of this encounter
--- OUTSIDE RECORDS SUMMARY | 2025-05-24 12:24 | XMS_ITS | Encounter Summary ---
Author Organization [facility] Address [address] [place] [address] Care Team Providers Care Pre Billing Specialist Name Role Phone Vandana Jo MD Primary Care Provider [phone] Reason for Referral * Outpatient Services (Routine) - Closed Specialty Diagnoses / Procedures Referred By Contac t Referred To Contact Radiology Diagnoses Foot pain Procedures CT FOOT WO CONTRAST LEFT Pavel Gan DPM [address] [place] [address] Phone: tel: fax: [facility] CT Scan [place] [address] [facility] [address] [place] [address] Phone: tel: fax: Referral ID Status Reason Start Date Expiration Date Visits Re quested Visits Authorized [id number] Closed 06/20/2012 06/20/2013 1 1 Encounter Details Date Type Department Care Team (Late st Contact Info) Description 06/20/2012 Ancillary Orders [facility] CT Scan [place] [address] [facility] [address] [place] [address] Pavel Gan DPM [address] [place] [address] Foot pain Social History Tobacco Use Types Packs/Day Years Used Date Smoking Tobacco: Former Cigarettes 1 20 1 - 06/16/2002 Smokeless Tobacco: Never Alcohol Use Standard Drinks/Week Comments Yes 1.7 (1 standard drink = 0.6 oz p ure alcohol) Comments No Sex and Gender Information Value Date Recorded Sex Assigned at Not on file Legal Sex Female 5:36 AM NUCLEAR PLANT INSTRUMENT TECHNICIAN Gender Identity Not on file Sexual Orientation Not on file documented as of this encounter Plan of Treatment Not on file documented as of this encounter Results * CT FOOT WO CONTRAST LEFT (06/23/2012 8:25 AM CDT) Anatomical Region Laterality Modality Ankle / Foot Computed Tomogra phy 06/23/2012 8:08 AM CDT Narrative 06/23/2012 9:[address] LEFT FOOT, 23 June 2012 TECHNIQUE Left foot helical axial CT was obtained from above the ankle through the toes at 0.5 mm increments increments for 287 axial images. Sagittal and coronal reconstructions and soft tissue reconstruction are also obtained. DESCRIPTION There is moderate degenerative change with osteophyte and soft tissue calcification of the great toe metatarsal phalangeal joint. Osteophyte is most pronounced at the anterior aspect of the head of the great toe metatarsal. No acute fracture or deformity is seen. No loss of alignment is seen. The ankle joint appears intact. There may be bony demineralization -- suggest bone densitometry if clinically indicated. IMPRESSION 1. 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 no acute changes seen Procedure Note Pipo Velazquez MD - 06/23/[address] LEFT FOOT, 23 June 2012 TECHNIQUE Left foot helical axial CT was obtained from above the ankle through the toes at 0.5 mm increments increments for 287 axial images. Sagittal and coronal reconstructions and soft tissue reconstruction are also obtained. DESCRIPTION There is moderate degenerative change with osteophyte and soft tissue calcification of the great toe metatarsal phalangeal joint. Osteophyte is most pronounced at the anterior aspect of the head of the great toe metatarsal. No acute fracture or deformity is seen. No loss of alignment is seen. The ankle joint appears intact. There may be bony demineralization -- suggest bone densitometry if clinically indicated. IMPRESSION 1. 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 no acute changes seen Pavel Gan DPM CT ORDERABLES Final Result documented in this encounter Visit Diagnoses Diagnosis Foot pain Pain in limb Foot pain Pain in limb documented in this encounter Additional Health Concerns Infection Onset Date Last Indicated Resolved Time R/O COVID-19 08/05/2020 08/05/2020 08/08/2020 1:00 AM NUCLEAR PLANT INSTRUMENT TECHNICIAN documented as of this encounter Care Teams Pre Billing Specialist Relationship Specialty Start Date End Date Vandana Jo MD [address] [phone] PCP - General Family Practice 10/31/12 documented as of this encounter
--- OUTSIDE RECORDS SUMMARY | 2025-05-24 12:24 | XMS_ITS | Encounter Summary ---
Author Organization [facility] Address [address] [place] [address] Care Team Providers Care Certified Income Tax Preparer Name Role Phone Vandana Jo MD Primary Care Provider Encounter Details Date Type Department Care Team (Latest Contact Info) Description 12/04/1999 Outpatient Historical HIS [facility] Eliazar Wild NO ADDRESS ON FILE Urticaria, unspecified (Primary Dx) Social History Tobacco Use Types Packs/Day Years Used Date Smoking Tobacco: Never Assessed Comments Unknown Sex and Gender Information Value Date Recorded Sex Assigned at Not on file Legal Sex Female 5:36 AM PIPE LINE REPAIRER Gender Identity Not on file Sexual Orientation Not on file documented as of this encounter Plan of Treatment Not on file documented as of this encounter Visit Diagnoses Diagnosis Urticaria, unspecified- Primary documented in this encounter Additional Health Concerns Infection Onset Date Last Indicated Resolved Time R/O COVID-19 08/05/2020 08/05/2020 08/08/2020 1:00 AM PIPE LINE REPAIRER documented as of this encounter Care Teams Certified Income Tax Preparer Relationship Specialty Start Date End Date Vandana Jo MD [address] [phone] PCP - General Family Practice 10/31/12 documented as of this encounter
--- OUTSIDE RECORDS SUMMARY | 2025-05-24 12:24 | XMS_ITS | Encounter Summary ---
Author Organization [facility] Address [address] [place] [address] Care Team Providers Care Restaurant Associate Name Role Phone Vandana Jo MD Primary Care Provider Encounter Details Date Type Department Care Team (Late st Contact Info) Description 08/21/2012 Ancillary Orders [facility] Admitting [address] [place] [address] Pavel Gan, VINNIE [address], [place] [address] Post-op pain Social History Tobacco Use Types Packs/Day Years Used Date Smoking Tobacco: Former Cigarettes 1 20 1 - 06/16/2002 Smokeless Tobacco: Never Alcohol Use Standard Drinks/Week Comments Yes 1.7 (1 standard drink = 0.6 oz p ure alcohol) Comments No Sex and Gender Information Value Date Recorded Sex Assigned at Not on file Legal Sex Female 5:36 AM UNLEAVENED DOUGH MIXER Gender Identity Not on file Sexual Orientation Not on file Occupation Industry Job Start Date Job End Date Not on file Not on file Not on file Not on file documented as of this encounter Plan of Treatment Not on file documented as of this encounter Results * XR FOOT 3+ VW LEFT (08/21/2012 10:31 AM UNLEAVENED DOUGH MIXER) Anatomical Region Laterality Modality Ankle / Foot Computed Radiogr aphy 08/21/2012 10:2 0 AM UNLEAVENED DOUGH MIXER Impressions 08/21/2012 12:26 PM UNLEAVENED DOUGH MIXER IMPRESSION: See report below. Exam: XR FOOT 3+ VW LEFT Date/Time of Exam: Aug 21, 2012 10:31:00 AM Reason For Exam: Other acute postoperative pain. Findings: Left foot shows a pin spanning the first metatarsal. Alignment of the first toe is within normal limits. Otherwise the foot is within normal limits and without acute abnormality. Impression: Postoperative change involving the first metatarsal but otherwise no significant abnormality. ama - uploaded from [employer] - Narrative Procedure Note Gurwinder Prince MD - 08/21/2012 IMPRESSION IMPRESSION: See report below. Exam: XR FOOT 3+ VW LEFT Date/Time of Exam: Aug 21, 2012 10:31:00 AM Reason For Exam: Other acute postoperative pain. Findings: Left foot shows a pin spanning the first metatarsal. Alignment of the first toe is within normal limits. Otherwise the foot is within normal limits and without acute abnormality. Impression: Postoperative change involving the first metatarsal but otherwise no significant abnormality. ama - uploaded from [employer] - Pavel Elvia CHRISTOPHE DIAGNOSTIC IMAGING ORDERABLE S Final Result documented in this encounter Visit Diagnoses Diagnosis Post-op pain Other acute postoperative pain Post-op pain Other acute postoperative pain documented in this encounter Additional Health Concerns Infection Onset Date Last Indicated Resolved Time R/O COVID-19 08/05/2020 08/05/2020 08/08/2020 1:00 AM UNLEAVENED DOUGH MIXER documented as of this encounter Care Teams Restaurant Associate Relationship Specialty Start Date End Date Vandana Jo MD [address] [phone] PCP - General Family Practice 10/31/12 documented as of this encounter
--- OUTSIDE RECORDS SUMMARY | 2025-05-24 12:24 | XMS_ITS | Encounter Summary ---
Author Organization [facility] Address [address] [place] [address] Care Team Providers Care Boom Truck Driver Name Role Phone Vandana Jo MD Primary Care Provider Encounter Details Date Type Department Care Team (Latest Contact Info) Description 05/26/1998 Outpatient Historical HIS MD Eyad STEWART Arlen D NO ADDRESS ON FILE Hypertrophy of breast (Primary Dx) Social History Tobacco Use Types Packs/Day Years Used Date Smoking Tobacco: Never Assessed Comments Unknown Sex and Gender Information Value Date Recorded Sex Assigned at Not on file Legal Sex Female 5:36 AM EXTENSION SERVICE SPECIALIST Gender Identity Not on file Sexual Orientation Not on file documented as of this encounter Plan of Treatment Not on file documented as of this encounter Visit Diagnoses Diagnosis Hypertrophy of breast- Primary documented in this encounter Additional Health Concerns Infection Onset Date Last Indicated Resolved Time R/O COVID-19 08/05/2020 08/05/2020 08/08/2020 1:00 AM EXTENSION SERVICE SPECIALIST documented as of this encounter Care Teams Boom Truck Driver Relationship Specialty Start Date End Date Vandana Jo MD [address] [facility] [address] [place] [phone] PCP - General Family Practice 10/31/12 documented as of this encounter
--- OUTSIDE RECORDS SUMMARY | 2025-05-24 12:24 | XMS_ITS | Encounter Summary ---
Author Organization [facility] Address [address] [place] [address] Care Team Providers Care Digital Forensics Examiner Name Role Phone Vandana Jo MD Primary Care Provider Encounter Details Date Type Department Care Team (Late st Contact Info) Description 07/17/2005 Outpatient Historical [facility] Cardiology- [place] [address] [place] [address] Teodoro Farfan MD [address] [facility] [address] [place] [address] CHR ISCHEMIC HRT DIS NEC (Primary Dx) Social History Tobacco Use Types Packs/Day Years Used Date Smoking Tobacco: Never Assessed Comments Unknown Sex and Gender Information Value Date Recorded Sex Assigned at Not on file Legal Sex Female 5:36 AM EXPLOSIVE ORDNANCE HANDLER Gender Identity Not on file Sexual Orientation Not on file documented as of this encounter Plan of Treatment Not on file documented as of this encounter Visit Diagnoses Diagnosis Other specified forms of chronic ischemic heart disease- Primary documented in this encounter Additional Health Concerns Infection Onset Date Last Indicated Resolved Time R/O COVID-19 08/05/2020 08/05/2020 08/08/2020 1:00 AM EXPLOSIVE ORDNANCE HANDLER documented as of this encounter Care Teams Digital Forensics Examiner Relationship Specialty Start Date End Date Vandana Jo MD [address] [facility] [address] [place] [phone] PCP - General Family Practice 10/31/12 documented as of this encounter
--- OUTSIDE RECORDS SUMMARY | 2025-05-24 12:24 | XMS_ITS | Encounter Summary ---
Author Organization [facility] Address [address] [place] [address] Care Team Providers Care Power Digger Operator Name Role Phone Vandana Jo MD Primary Care Provider [phone] Encounter Details Date Type Department Care Team (Latest Contact Info) Description 09/05/2001 Outpatient Historical HIS [facility] Vickey Tam MD [address] [place] [phone] BRONCHITIS NOS (Primary Dx); ACUTE SINUSITIS NOS; HERPES SIMPLEX NOS Social History Tobacco Use Types Packs/Day Years Used Date Smoking Tobacco: Never Assessed Comments Unknown Sex and Gender Information Value Date Recorded Sex Assigned at Not on file Legal Sex Female 5:36 AM GERIATRIC PSYCHIATRIST Gender Identity Not on file Sexual Orientation Not on file documented as of this encounter Plan of Treatment Not on file documented as of this encounter Visit Diagnoses Diagnosis Bronchitis, not specified as acute or chronic- Primary Acute sinusitis, unspecified Herpes simplex without mention of complication documented in this encounter Additional Health Concerns Infection Onset Date Last Indicated Resolved Time R/O COVID-19 08/05/2020 08/05/2020 08/08/2020 1:00 AM GERIATRIC PSYCHIATRIST documented as of this encounter Care Teams Power Digger Operator Relationship Specialty Start Date End Date Vandana Jo MD [address] [facility] [address] [place] [phone] PCP - General Family Practice 10/31/12 documented as of this encounter
--- OUTSIDE RECORDS SUMMARY | 2025-05-24 12:24 | XMS_ITS | Encounter Summary ---
Author Organization [facility] Address [address] [place] [address] Care Team Providers Care Sales Technician Home Theater Name Role Phone Vandana Jo MD Primary Care Provider Encounter Details Date Type Department Care Team (Late st Contact Info) Description 08/05/2019 Ancillary Orders [facility] Family Medicine [place] [address] [address] Vandana Jo MD [address] [phone] Right hip pain Social History Tobacco Use Types Packs/Day Years Used Date Smoking Tobacco: Former Cigarettes 1 20 1 - 06/16/2002 Smokeless Tobacco: Never Alcohol Use Standard Drinks/Week Comments Yes 1.7 (1 standard drink = 0.6 oz p ure alcohol) occ Comments No Sex and Gender Information Value Date Recorded Sex Assigned at Not on file Legal Sex Female 5:36 AM DIRECTOR SPEECH AND HEARING Gender Identity Not on file Sexual Orientation Not on file Occupation Industry Job Start Date Job End Date Not on file Not on file Not on file Not on file documented as of this encounter Plan of Treatment Not on file documented as of this encounter Results * XR HIP 2 OR 3 VIEWS RT (08/05/2019 1:51 PM DIRECTOR SPEECH AND HEARING) Anatomical Region Laterality Modality Lower Extremity Right Computed Radiogr aphy 08/05/2019 1:52 PM DIRECTOR SPEECH AND HEARING Impressions 08/05/2019 3:16 PM DIRECTOR SPEECH AND HEARING IMPRESSION: See below. Exam: XR HIP 2 OR 3 VIEWS RT Date/Time of Exam: 08/05/2019 1:51 PM Reason For Exam: See Diagnosis. Diagnosis: Right hip pain. Findings: There is a joint arthroplasty which appears normally aligned. No fracture or hardware complication identified. [id number] Narrative Procedure Note Cruz Villela MD - 08/05/2019 IMPRESSION: See below. Exam: XR HIP 2 OR 3 VIEWS RT Date/Time of Exam: 08/05/2019 1:51 PM Reason For Exam: See Diagnosis. Diagnosis: Right hip pain. Findings: There is a joint arthroplasty which appears normally aligned. No fracture or hardware complication identified. [id number] Vandana Jo MD DIAGNOSTIC IMAGING ORDERABL ES Final Result documented in this encounter Visit Diagnoses Diagnosis Right hip pain Pain in joint, pelvic region and thigh Right hip pain Pain in joint, pelvic region and thigh documented in this encounter Additional Health Concerns Infection Onset Date Last Indicated Resolved Time R/O COVID-19 08/05/2020 08/05/2020 08/08/2020 1:00 AM DIRECTOR SPEECH AND HEARING documented as of this encounter Care Teams Sales Technician Home Theater Relationship Specialty Start Date End Date Vandana Jo MD [address] [phone] PCP - General Family Practice 10/31/12 documented as of this encounter
--- OUTSIDE RECORDS SUMMARY | 2025-05-24 12:24 | XMS_ITS | Encounter Summary ---
Author Organization [facility] Address [address] [place] [address] Care Team Providers Care Truck Striker Name Role Phone Vadnana Jo MD Primary Care Provider [phone] Encounter Details Date Type Department Care Team (Late st Contact Info) Description 01/04/2006 Inpatient Historical [facility] Mukesh cMwilliams MD NO ADDRESS ON FILE Other Chest Pain (Primary Dx) Social History Tobacco Use Types Packs/Day Years Used Date Smoking Tobacco: Never Assessed Comments Unknown Sex and Gender Information Value Date Recorded Sex Assigned at Not on file Legal Sex Female 5:36 AM MEDICAL HISTORIAN Gender Identity Not on file Sexual Orientation Not on file documented as of this encounter Plan of Treatment Not on file documented as of this encounter Procedures Procedure Name Priority Date/Time Associated Diagnosis Comments PT AND APTT Routine 01/04/2006 12:45 PM CDT documented in this encounter Results * PT AND APTT (01/04/2006 12:45 PM CDT) PTT 33.6 21.5 - 34.4 Secs INTERFACE SYSTEM Comment: Therapeutic Range: Hi-level PE/DVT heparin protocol 90.1 -110 sec Lo-level PE/DVT heparin protocol 75.1 - 95 sec Cardiac Heparin Protocol 85.1 - 100 sec Neuro Heparin Protocol 70.1 - 85 sec As of 09/26/05 note change in APTT Normal Range. PROTIME 14.4 12.6 - 14.9 Secs INTERFACE SYSTEM Comment: As of 05 note change in normal range. INR 1.1 INTERFACE SYSTEM Comment: Expected Values for INR: DVT/PE Goal INR 2.5; range 2.0 - 3.0 Valve Replacement Tissue Goal INR 2.5; range 2.0 - 3.0 Mechanical Goal INR 3.0; range 2.5 - 3.5 POST-CO Goal INR 2.5; range 2.0 - 3.0 or Goal 3.0; range 2.5 - 3.5 Atrial Fibrillation Goal INR 2.5; range 2.0 - 3.0 Ischemic Stroke Goal INR 2.5; range 2.0 - 3.0 For additional information see Guidelines for Anticoagulation available from the pharmacy Shante Davis D. 01/04/2006 12:4 5 PM CDT Mukesh Mcwilliams MD HEMATOLOGY ORDERABLES Final Re sult INTERFACE SYSTEM Refer to clinic/hospital department documented in this encounter Visit Diagnoses Diagnosis Other chest pain- Primary documented in this encounter Additional Health Concerns Infection Onset Date Last Indicated Resolved Time R/O COVID-19 08/05/2020 08/05/2020 08/08/2020 1:00 AM MEDICAL HISTORIAN documented as of this encounter Care Teams Truck Striker Relationship Specialty Start Date End Date Vandana Jo MD [address] [facility] [address] [place] [address] PCP - General Family Practice 10/31/12 documented as of this encounter
--- OUTSIDE RECORDS SUMMARY | 2025-05-24 12:24 | XMS_ITS | Encounter Summary ---
Author Organization [facility] Address [address] [place] [address] Care Team Providers Care Process Lead Name Role Phone Vandana Jo MD Primary Care Provider Encounter Details Date Type Department Care Team (Latest Contact Info) Description 03/12/2002 Outpatient Historical HIS [facility] Vickey Tam MD [address] [place] [phone] DEPRESSIVE DISORDER NEC (Primary Dx); SOMATIC DYSFUNCTION NEC Social History Tobacco Use Types Packs/Day Years Used Date Smoking Tobacco: Never Assessed Comments Unknown Sex and Gender Information Value Date Recorded Sex Assigned at Not on file Legal Sex Female 5:36 AM LINE UP MACHINE OPERATOR Gender Identity Not on file Sexual Orientation Not on file documented as of this encounter Plan of Treatment Not on file documented as of this encounter Visit Diagnoses Diagnosis Depressive disorder, not elsewhere classified- Primary Nonallopathic lesion of abdomen and other sites, not elsewhere classified documented in this encounter Additional Health Concerns Infection Onset Date Last Indicated Resolved Time R/O COVID-19 08/05/2020 08/05/2020 08/08/2020 1:00 AM LINE UP MACHINE OPERATOR documented as of this encounter Care Teams Process Lead Relationship Specialty Start Date End Date Vandana Jo MD [address] [facility] [address] [place] [phone] PCP - General Family Practice 10/31/12 documented as of this encounter
--- OUTSIDE RECORDS SUMMARY | 2025-05-24 12:24 | XMS_ITS | Encounter Summary ---
Author Organization [facility] Address [address] [place] [address] Care Team Providers Care Remelt Furnace Expediter Name Role Phone Vandana Jo MD Primary Care Provider Encounter Details Date Type Department Care Team (Late st Contact Info) Description 07/24/2004 Inpatient Historical [facility] IN BED Mukesh Mcwilliams MD NO ADDRESS ON FILE PAINFUL RESPIRATION (Primary Dx) Social History Tobacco Use Types Packs/Day Years Used Date Smoking Tobacco: Never Assessed Comments Unknown Sex and Gender Information Value Date Recorded Sex Assigned at Not on file Legal Sex Female 5:36 AM NETWORK SYSTEMS OPERATOR Gender Identity Not on file Sexual Orientation Not on file documented as of this encounter Plan of Treatment Not on file documented as of this encounter Visit Diagnoses Diagnosis Painful respiration- Primary documented in this encounter Additional Health Concerns Infection Onset Date Last Indicated Resolved Time R/O COVID-19 08/05/2020 08/05/2020 08/08/2020 1:00 AM NETWORK SYSTEMS OPERATOR documented as of this encounter Care Teams Remelt Furnace Expediter Relationship Specialty Start Date End Date Vandana Jo MD [address] [facility] [address] [place] [phone] PCP - General Family Practice 10/31/12 documented as of this encounter
--- OUTSIDE RECORDS SUMMARY | 2025-05-24 12:24 | XMS_ITS | Encounter Summary ---
Author Organization [facility] Address [address] [place] [address] Care Team Providers Care Pc Analyst Name Role Phone Vandana Jo MD Primary Care Provider Encounter Details Date Type Department Care Team (Latest Contact Info) Description 12/14/2004 Outpatient Historical [facility] Medicine [address] [phone] Evan Kenney NP NO ADDRESS ON FILE BONE & CARTILAGE DIS NOS (Primary Dx); ANXIETY STATE NOS; FLUID OVERLOAD Social History Tobacco Use Types Packs/Day Years Used Date Smoking Tobacco: Never Assessed Comments Unknown Sex and Gender Information Value Date Recorded Sex Assigned at Not on file Legal Sex Female 5:36 AM FLIGHT NURSE Gender Identity Not on file Sexual Orientation Not on file documented as of this encounter Plan of Treatment Not on file documented as of this encounter Visit Diagnoses Diagnosis Disorder of bone and cartilage, unspecified- Primary Anxiety state, unspecified Fluid overload documented in this encounter Additional Health Concerns Infection Onset Date Last Indicated Resolved Time R/O COVID-19 08/05/2020 08/05/2020 08/08/2020 1:00 AM FLIGHT NURSE documented as of this encounter Care Teams Pc Analyst Relationship Specialty Start Date End Date Vandana Jo MD [address] [phone] PCP - General Family Practice 10/31/12 documented as of this encounter
--- OUTSIDE RECORDS SUMMARY | 2025-05-24 12:24 | XMS_ITS | Encounter Summary ---
Author Organization [facility] Address [address] [place] [address] Care Team Providers Care Software Design Analyst Name Role Phone Vandana Jo MD Primary Care Provider [phone] Encounter Details Date Type Department Care Team (Latest Contact Info) Description 01/03/2000 Outpatient Historical [facility] Eliazar Wild NO ADDRESS ON FILE Acute bronchitis (Primary Dx); Allergic rhinitis, cause unspecified Social History Tobacco Use Types Packs/Day Years Used Date Smoking Tobacco: Never Assessed Comments Unknown Sex and Gender Information Value Date Recorded Sex Assigned at Not on file Legal Sex Female 5:36 AM AGRICULTURAL EQUIPMENT OPERATOR Gender Identity Not on file Sexual Orientation Not on file documented as of this encounter Plan of Treatment Not on file documented as of this encounter Visit Diagnoses Diagnosis Acute bronchitis- Primary Allergic rhinitis, cause unspecified documented in this encounter Additional Health Concerns Infection Onset Date Last Indicated Resolved Time R/O COVID-19 08/05/2020 08/05/2020 08/08/2020 1:00 AM AGRICULTURAL EQUIPMENT OPERATOR documented as of this encounter Care Teams Software Design Analyst Relationship Specialty Start Date End Date Vandana Jo MD [address] [facility] [address] [place] [address] PCP - General Family Practice 10/31/12 documented as of this encounter
--- OUTSIDE RECORDS SUMMARY | 2025-05-24 12:24 | XMS_ITS | Encounter Summary ---
Author Organization [facility] Address [address] [place] [address] Care Team Providers Care Collision Worker Name Role Phone Vandana Jo MD Primary Care Provider Encounter Details Date Type Department Care Team (Latest Contact Info) Description 03/14/2000 Outpatient Historical [facility] Vickey Tam MD [address] [place] [address] Lumbago (Primary Dx) Social History Tobacco Use Types Packs/Day Years Used Date Smoking Tobacco: Never Assessed Comments Unknown Sex and Gender Information Value Date Recorded Sex Assigned at Not on file Legal Sex Female 5:36 AM LEGAL SERVICES PROFESSIONAL Gender Identity Not on file Sexual Orientation Not on file documented as of this encounter Plan of Treatment Not on file documented as of this encounter Visit Diagnoses Diagnosis Lumbago- Primary documented in this encounter Additional Health Concerns Infection Onset Date Last Indicated Resolved Time R/O COVID-19 08/05/2020 08/05/2020 08/08/2020 1:00 AM LEGAL SERVICES PROFESSIONAL documented as of this encounter Care Teams Collision Worker Relationship Specialty Start Date End Date Vandana Jo MD [address] [facility] [address] [place] [address] PCP - General Family Practice 10/31/12 documented as of this encounter
--- OUTSIDE RECORDS SUMMARY | 2025-05-24 12:24 | XMS_ITS | Encounter Summary ---
Author Organization [facility] Address [address] [place] [address] Care Team Providers Care Silk Screen Etcher Name Role Phone Vandana Jo MD Primary Care Provider Encounter Details Date Type Department Care Team (Latest Contact Info) Description 02/06/2002 Outpatient Historical [facility] Vickey Tam MD [address] [place] [id number] Hypoactive sexual desire (Primary Dx); DEPRESSIVE DISORDER NEC; POSTMENOPAUSAL HORMONAL REPLACMT Social History Tobacco Use Types Packs/Day Years Used Date Smoking Tobacco: Never Assessed Comments Unknown Sex and Gender Information Value Date Recorded Sex Assigned at Not on file Legal Sex Female 5:36 AM BEARING GRINDER Gender Identity Not on file Sexual Orientation Not on file documented as of this encounter Plan of Treatment Not on file documented as of this encounter Visit Diagnoses Diagnosis Hypoactive sexual desire- Primary Hypoactive sexual desire disorder Depressive disorder, not elsewhere classified Need for prophylactic hormone replacement therapy (postmenopausal) documented in this encounter Additional Health Concerns Infection Onset Date Last Indicated Resolved Time R/O COVID-19 08/05/2020 08/05/2020 08/08/2020 1:00 AM BEARING GRINDER documented as of this encounter Care Teams Silk Screen Etcher Relationship Specialty Start Date End Date Vandana Jo MD [address] [facility] [place] [phone] PCP - General Family Practice 10/31/12 documented as of this encounter
--- OUTSIDE RECORDS SUMMARY | 2025-05-24 12:24 | XMS_ITS | Encounter Summary ---
Author Organization [facility] Address [address] [place] [address] Care Team Providers Care Entry Level Programmer Name Role Phone Vandana Jo MD Primary Care Provider Encounter Details Date Type Department Care Team (Late st Contact Info) Description 09/20/2005 Outpatient Historical [facility] Family Medicine [address] [address] Social History Tobacco Use Types Packs/Day Years Used Date Smoking Tobacco: Never Assessed Comments Unknown Sex and Gender Information Value Date Recorded Sex Assigned at Not on file Legal Sex Female 5:36 AM CLOTH PICKER Gender Identity Not on file Sexual Orientation Not on file documented as of this encounter Plan of Treatment Not on file documented as of this encounter Visit Diagnoses Not on filedocumented in this encounter Additional Health Concerns Infection Onset Date Last Indicated Resolved Time R/O COVID-19 08/05/2020 08/05/2020 08/08/2020 1:00 AM CLOTH PICKER documented as of this encounter Care Teams Entry Level Programmer Relationship Specialty Start Date End Date Vandana Jo MD [address] [phone] PCP - General Family Practice 10/31/12 documented as of this encounter
--- OUTSIDE RECORDS SUMMARY | 2025-05-24 12:24 | XMS_ITS | Encounter Summary ---
Author Organization [facility] Address [address] [place] [address] Care Team Providers Care Parts Chaser Name Role Phone Vandana Jo MD Primary Care Provider Encounter Details Date Type Department Care Team (Latest Contact Info) Description 01/04/2006 Outpatient Historical [facility] [place] [address] [place] [address] [facility] Unspecified Chest Pain (Primary Dx) Social History Tobacco Use Types Packs/Day Years Used Date Smoking Tobacco: Never Assessed Comments Unknown Sex and Gender Information Value Date Recorded Sex Assigned at Not on file Legal Sex Female 5:36 AM BARREL STAVE INSPECTOR Gender Identity Not on file Sexual Orientation Not on file documented as of this encounter Plan of Treatment Not on file documented as of this encounter Visit Diagnoses Diagnosis Chest pain, unspecified- Primary documented in this encounter Additional Health Concerns Infection Onset Date Last Indicated Resolved Time R/O COVID-19 08/05/2020 08/05/2020 08/08/2020 1:00 AM BARREL STAVE INSPECTOR documented as of this encounter Care Teams Parts Chaser Relationship Specialty Start Date End Date Vandana Jo MD [address] [facility] [place] [address] PCP - General Family Practice 10/31/12 documented as of this encounter
--- OUTSIDE RECORDS SUMMARY | 2025-05-24 12:24 | XMS_ITS | Encounter Summary ---
Author Organization [facility] Address [address] [place] [address] Care Team Providers Care Cafeteria Operator Name Role Phone Vandana Jo MD Primary Care Provider Encounter Details Date Type Department Care Team (Latest Contact Info) Description 09/08/1999 Outpatient Historical HIS [facility] Eliazar Wild NO ADDRESS ON FILE Health examination of defined subpopulation (Primary Dx); Other screening breast examination; Special screening for malignant neoplasms of other sites; Screening for other and unspecified respiratory condition Social History Tobacco Use Types Packs/Day Years Used Date Smoking Tobacco: Never Assessed Comments Unknown Sex and Gender Information Value Date Recorded Sex Assigned at Not on file Legal Sex Female 5:36 AM ANGLE SHEARER Gender Identity Not on file Sexual Orientation Not on file documented as of this encounter Plan of Treatment Not on file documented as of this encounter Visit Diagnoses Diagnosis Health examination of defined subpopulation- Primary Other screening breast examination Special screening for malignant neoplasms of other sites Screening for other and unspecified respiratory condition documented in this encounter Additional Health Concerns Infection Onset Date Last Indicated Resolved Time R/O COVID-19 08/05/2020 08/05/2020 08/08/2020 1:00 AM ANGLE SHEARER documented as of this encounter Care Teams Cafeteria Operator Relationship Specialty Start Date End Date Vandana Jo MD [address] [facility] [place] [phone] PCP - General Family Practice 10/31/12 documented as of this encounter
--- OUTSIDE RECORDS SUMMARY | 2025-05-24 12:24 | XMS_ITS | Encounter Summary ---
Author Organization [facility] Address [address] [place] [address] Care Team Providers Care Production Clerk Name Role Phone Vandana Jo MD Primary Care Provider [phone] Encounter Details Date Type Department Care Team (Latest Contact Info) Description 10/24/1999 Outpatient Historical [facility] Eliazar Wild NO ADDRESS ON FILE Bronchopneumonia, organism unspecified (Primary Dx); Other diseases of trachea and bronchus, not elsewhere classified; Other follow-up examination(V67.59) Social History Tobacco Use Types Packs/Day Years Used Date Smoking Tobacco: Never Assessed Comments Unknown Sex and Gender Information Value Date Recorded Sex Assigned at Not on file Legal Sex Female 5:36 AM FORENSIC EXAMINER Gender Identity Not on file Sexual Orientation Not on file documented as of this encounter Plan of Treatment Not on file documented as of this encounter Visit Diagnoses Diagnosis Bronchopneumonia, organism unspecified- Primary Other diseases of trachea and bronchus, not elsewhere classified Other follow-up examination(V67.59) Other follow-up examination documented in this encounter Additional Health Concerns Infection Onset Date Last Indicated Resolved Time R/O COVID-19 08/05/2020 08/05/2020 08/08/2020 1:00 AM FORENSIC EXAMINER documented as of this encounter Care Teams Production Clerk Relationship Specialty Start Date End Date Vandana Jo MD [address] [place] [phone] PCP - General Family Practice 10/31/12 documented as of this encounter
--- OUTSIDE RECORDS SUMMARY | 2025-05-24 12:24 | XMS_ITS | Encounter Summary ---
Author Organization [facility] Address [address] [place] [address] Care Team Providers Care Labor Supervisor Name Role Phone Vandana Jo MD Primary Care Provider Encounter Details Date Type Department Care Team (Latest Contact Info) Description 02/05/2001 Outpatient Historical HIS [facility] Eliazar Wild NO ADDRESS ON FILE Other malaise and fatigue (Primary Dx); Need for prophylactic hormone replacement therapy (postmenopausal); Enlargement of lymph nodes Social History Tobacco Use Types Packs/Day Years Used Date Smoking Tobacco: Never Assessed Comments Unknown Sex and Gender Information Value Date Recorded Sex Assigned at Not on file Legal Sex Female 5:36 AM SENIOR LIBRARIAN Gender Identity Not on file Sexual Orientation Not on file documented as of this encounter Plan of Treatment Not on file documented as of this encounter Visit Diagnoses Diagnosis Other malaise and fatigue- Primary Need for prophylactic hormone replacement therapy (postmenopausal) Enlargement of lymph nodes documented in this encounter Additional Health Concerns Infection Onset Date Last Indicated Resolved Time R/O COVID-19 08/05/2020 08/05/2020 08/08/2020 1:00 AM SENIOR LIBRARIAN documented as of this encounter Care Teams Labor Supervisor Relationship Specialty Start Date End Date aVndana Jo MD [address] [facility] [address] [place] [address] PCP - General Family Practice 10/31/12 documented as of this encounter
--- OUTSIDE RECORDS SUMMARY | 2025-05-24 12:24 | XMS_ITS | Encounter Summary ---
Author Organization [facility] Address [address] [place] [address] Care Team Providers Care Forge Tender Name Role Phone Vandana Jo MD Primary Care Provider [phone] Encounter Details Date Type Department Care Team (Late st Contact Info) Description 09/24/2006 Outpatient Historical [facility] Zoya Willis MD NO ADDRESS ON FILE Social History Tobacco Use Types Packs/Day Years Used Date Smoking Tobacco: Never Assessed Comments Unknown Sex and Gender Information Value Date Recorded Sex Assigned at Not on file Legal Sex Female 5:36 AM DATA COLLECTION TECHNICIAN Gender Identity Not on file Sexual Orientation Not on file documented as of this encounter Plan of Treatment Not on file documented as of this encounter Procedures Procedure Name Priority Date/Time Associated Diagnosis Comments MRI KNEE WO CONTRAST RIGHT Routine 09/24/2006 9:52 AM DATA COLLECTION TECHNICIAN documented in this encounter Results * MRI KNEE WO CONTRAST RIGHT (09/24/2006 9:52 AM DATA COLLECTION TECHNICIAN) Anatomical Region Laterality Modality Lower Extremity Other 09/24/2006 9:52 AM DATA COLLECTION TECHNICIAN Narrative 09/24/2006 9:52 AM DATA COLLECTION TECHNICIAN MRI of the right knee was performed without contrast. The ACL and the PCL are intact. Thequadriceps tendon and the patellar tendon are intact. The medial collateral ligament, iliotibialtract, fibulocollateral ligament and biceps femoris are intact. The medial patellofemoral ligamentis intact. The patient has prominent cartilage loss of the apex and lateral facet of the patellawith subchondral edema. Cartilage loss of the adjacent femur with subchondral sclerosis is alsoidentified. There slight lateral tilting and subluxation the patella with respect to the femurduring the MRI. Mild diffuse cartilage loss along the articular surfaces of the femur and tibia isalso identified. This is more prominent in the medial compartment. The lateral meniscus is intact and appropriate in appearance. Adjacent to the inner margin of theanterior horn medial meniscus there is a multiloculated collection with some internal debris orseptations measuring 1.0 cm in diameter. No linear medial meniscal tear is identified. Thiscollection is displacing the transverse meniscal ligament and may represent a meniscal cystfollowing the ligament. Another possibility is that the patient has a small tear of the innermargin of the anterior horn medial meniscus and this is a meniscal cyst although no tear isappreciated on this exam. Another possibility is that this is a synovial cyst or loculated portionof the knee joint containing some cartilaginous debris and synovial thickening. There is some mild tendinopathy of the medial head gastrocnemius tendon demonstrated by some tendonthickening and increased signal in its substance. There is some fluid adjacent to its attachmentsite to the femur. There is a small Brantley's cyst. IMPRESSION: 1. 1 cm rounded collection adjacent to the inner margin medial meniscus and transverse meniscalligament with internal signal such as septations or debris. No definite medial meniscal tear. Please see above discussion. 2. Chondromalacia. The most significant cartilage loss is in the patella where there are bony signalabnormalities. It would not be surprising if there is some cartilaginous debris in the knee jointthat is not clearly identified on this exam since there is no knee joint effusion. 3. Medial head gastrocnemius tendinopathy. - Dictated By: Rashida Lagos M.D. Electronically Signed By: Rashida Lagos M.D. Date Signed: 09/24/06 Procedure Note 07/22/2009 MRI of the right knee was performed without contrast. The ACL and the PCLare intact. Thequadriceps tendon and the patellar tendon are intact. The medial collateral ligament,iliotibialtract, fibulocollateral ligament and biceps femoris are intact. The medialpatellofemoral ligamentis intact. The patient has prominent cartilage loss of the apex and lateral facet of thepatellawith subchondral edema. Cartilage loss of the adjacent femur with subchondral sclerosis isalsoidentified. There slight lateral tilting and subluxation the patella with respect to the femurduring theMRI. Mild diffuse cartilage loss along the articular surfaces of the femur and tibia isalso identified.This is more prominent in the medial compartment. The lateral meniscus is intact and appropriate in appearance. Adjacent tothe inner margin of theanterior horn medial meniscus there is a multiloculated collection with someinternal debris orseptations measuring 1.0 cm in diameter. No linear medial meniscal tear isidentified. Thiscollection is displacing the transverse meniscal ligament and may represent a meniscalcystfollowing the ligament. Another possibility is that the patient has a small tear of the innermargin of theanterior horn medial meniscus and this is a meniscal cyst although no tear isappreciated on this exam.Another possibility is that this is a synovial cyst or loculated portionof the knee joint containing somecartilaginous debris and synovial thickening. There is some mild tendinopathy of the medial head gastrocnemius tendondemonstrated by some tendonthickening and increased signal in its substance. There is somefluid adjacent to its attachmentsite to the femur. There is a small Brantley's cyst. IMPRESSION: 1. 1 cm rounded collection adjacent to the inner margin medial meniscusand transverse meniscalligament with internal signal such as septations or debris. No definite medialmeniscal tear. Please see above discussion. 2. Chondromalacia. The most significant cartilage loss is in the patellawhere there are bony signalabnormalities. It would not be surprising if there is somecartilaginous debris in the knee jointthat is not clearly identified on this exam since there is no kneejoint effusion. 3. Medial head gastrocnemius tendinopathy. - Dictated By: Rashida Lagos M.D. Electronically Signed By: Rashida Lagos M.D. Date Signed: 09/24/06 us Zoya Willis MD MR ORDERABLES Final Resul t documented in this encounter Visit Diagnoses Not on filedocumented in this encounter Additional Health Concerns Infection Onset Date Last Indicated Resolved Time R/O COVID-19 08/05/2020 08/05/2020 08/08/2020 1:00 AM DATA COLLECTION TECHNICIAN documented as of this encounter Care Teams Forge Tender Relationship Specialty Start Date End Date Vandana Jo MD [address] [address] PCP - General Family Practice 10/31/12 documented as of this encounter
--- OUTSIDE RECORDS SUMMARY | 2025-05-24 12:24 | XMS_ITS | Encounter Summary ---
Author Organization [facility] Address [address] [place] [address] Care Team Providers Care Scuba Diving Teacher Name Role Phone Vandana Jo MD Primary Care Provider Encounter Details Date Type Department Care Team (Late st Contact Info) Description 10/10/2005 Outpatient Historical [facility] Family Medicine [address] [address] Social History Tobacco Use Types Packs/Day Years Used Date Smoking Tobacco: Never Assessed Comments Unknown Sex and Gender Information Value Date Recorded Sex Assigned at Not on file Legal Sex Female 5:36 AM REFRIGERATION SYSTEM INSTALLER Gender Identity Not on file Sexual Orientation Not on file documented as of this encounter Plan of Treatment Not on file documented as of this encounter Visit Diagnoses Not on filedocumented in this encounter Additional Health Concerns Infection Onset Date Last Indicated Resolved Time R/O COVID-19 08/05/2020 08/05/2020 08/08/2020 1:00 AM REFRIGERATION SYSTEM INSTALLER documented as of this encounter Care Teams Scuba Diving Teacher Relationship Specialty Start Date End Date Vandana Jo MD [address] [phone] PCP - General Family Practice 10/31/12 documented as of this encounter
--- OUTSIDE RECORDS SUMMARY | 2025-05-24 12:24 | XMS_ITS | Encounter Summary ---
Author Organization [facility] Address [address] [place] [address] Care Team Providers Care Yacht Builder Name Role Phone Vandana Jo MD Primary Care Provider Encounter Details Date Type Department Care Team (Late st Contact Info) Description 04/19/2004 Outpatient Historical [facility] Orthopedics- [address] [place] [address] Den Cason MD [address] [place] [address] JOINT PAIN-L/LEG (Primary Dx); JOINT PAIN-ANKLE Social History Tobacco Use Types Packs/Day Years Used Date Smoking Tobacco: Never Assessed Comments Unknown Sex and Gender Information Value Date Recorded Sex Assigned at Not on file Legal Sex Female 5:36 AM JAVA PROJECT MANAGER Gender Identity Not on file Sexual Orientation Not on file documented as of this encounter Plan of Treatment Not on file documented as of this encounter Visit Diagnoses Diagnosis Pain in joint, lower leg- Primary Pain in joint, ankle and foot documented in this encounter Additional Health Concerns Infection Onset Date Last Indicated Resolved Time R/O COVID-19 08/05/2020 08/05/2020 08/08/2020 1:00 AM JAVA PROJECT MANAGER documented as of this encounter Care Teams Yacht Builder Relationship Specialty Start Date End Date Vandana Jo MD [address] [facility] [address] [place] [phone] PCP - General Family Practice 10/31/12 documented as of this encounter
--- OUTSIDE RECORDS SUMMARY | 2025-05-24 12:24 | XMS_ITS | Encounter Summary ---
Author Organization [facility] Address [address] [place] [address] Care Team Providers Care Exhibitions And Collections Manager Name Role Phone Vandana Jo MD Primary Care Provider Encounter Details Date Type Department Care Team (Latest Contact Info) Description 10/10/1999 Outpatient Historical [facility] Eliazar Wild NO ADDRESS ON FILE Bronchopneumonia, organism unspecified (Primary Dx); Other diseases of trachea and bronchus, not elsewhere classified Social History Tobacco Use Types Packs/Day Years Used Date Smoking Tobacco: Never Assessed Comments Unknown Sex and Gender Information Value Date Recorded Sex Assigned at Not on file Legal Sex Female 5:36 AM DELIVERY AIDE Gender Identity Not on file Sexual Orientation Not on file documented as of this encounter Plan of Treatment Not on file documented as of this encounter Visit Diagnoses Diagnosis Bronchopneumonia, organism unspecified- Primary Other diseases of trachea and bronchus, not elsewhere classified documented in this encounter Additional Health Concerns Infection Onset Date Last Indicated Resolved Time R/O COVID-19 08/05/2020 08/05/2020 08/08/2020 1:00 AM DELIVERY AIDE documented as of this encounter Care Teams Exhibitions And Collections Manager Relationship Specialty Start Date End Date Vandana Jo MD [address] [facility] [address] [place] [address] PCP - General Family Practice 10/31/12 documented as of this encounter
--- OUTSIDE RECORDS SUMMARY | 2025-05-24 12:24 | XMS_ITS | Clinical Summary ---
Author Organization [facility] tone Address [address] [place] [address] Care Team Providers Care Bell Neck Hammerer Name Role Phone Vandana Jo MD Primary Care Provider Allergies Active Allergy Reactions Criticality Noted Date Comments Diphenhydramine Hcl Other (See Comments) 07/08/2009 Side effect when given with compazine, iv Hydromorphone (Bulk) Swelling Low 06/26/2017 Morphine Swelling Low 12/18/2017 Oxycodone-Acetaminophen Other (See Comments) 07/08/2009 Unable to void Prochlorperazine Other (See Comments) 07/08/2009 Given with benadryl caused reaction Propoxyphene N-Acetaminophen Other (See Comments) 07/08/2009 Medications aspirin (COURTNEY) 81 mg Oral Tab Take 81 mg by mouth daily. Active multivitamins-mine rals-lutein (CENTRUM SILVER) Oral Tab Take 1 Tab by mouth daily. Active albuterol (PROVENTIL,VENTOLI N) 2.5 mg /3 mL (0.083 %) Solution for NebulizationIndica tions:Acute bronchitis, unspecified organism Take 3 mL (2.5 mg) by inhalation every 6 hours as needed for Shortness of Breath. 360 mL 1 8 Active albuterol HFA 90 mcg inhalerIndications :Acute bronchitis, unspecified organism Take 2 Puffs by inhalation every 6 hours as needed for Shortness of Breath. 20.1 Gram 1 9 Active HYDROcodone-acetam inophen (NORCO) 5-325 mg tabletIndications: Right hip pain Take 1 Tablet by mouth every 4 hours as needed for Pain, Moderate. chronic right hip pain. Last seen 08/03/19 Max Daily Amount: 6 Tablets 15 Tablet 9 Active acetaminophen/diph enhydramine (TYLENOL PM ORAL) Take by mouth. Active simvastatin (ZOCOR) 20 mg tabletIndications: Hyperlipidemia, unspecified hyperlipidemia type Take 1 Tablet (20 mg) by mouth daily. 90 Tablet 1 0 Active metoprolol succinate (TOPROL XL) 50 mg Extended Release 24 hour tabletIndications: Essential hypertension TAKE 1 AND 1/2 TABLETS BY MOUTH DAILY 135 Tablet 1 Active amLODIPine (NORVASC) 10 mg tabletIndications: Essential hypertension Take 1 Tablet (10 mg) by mouth daily. 90 Tablet 1 Active sertraline (ZOLOFT) 100 mg tabletIndications: Generalized anxiety disorder Take 1 Tablet (100 mg) by mouth daily. 90 Tablet 1 Active topiramate (TOPAMAX) 25 mg tabletIndications: Intractable episodic headache, unspecified headache type TAKE 1 TABLET BY MOUTH TWICE DAILY 180 Tablet 1 Active omeprazole (PriLOSEC) 20 mg Capsule, Delayed Release(E.C.) TAKE 1 CAPSULE BY MOUTH DAILY 90 Capsule 1 1 Active traZODone (DESYREL) 50 mg tabletIndications: Insomnia, unspecified type Take 1 Tablet (50 mg) by mouth daily at bedtime. 90 Tablet 1 1 Active Active Problems Problem Noted Date Diagnosed Date Major depression 08/03/2019 Sternum pain 05/08/2017 Costochondritis 05/08/2017 LILIBETH positive 05/08/2017 ESR raised 05/08/2017 CRP elevated 05/08/2017 Claustrophobia 05/08/2017 Antral gastritis 01/22/2017 Overview (01/22/2017): With linear erosions. GERD without esophagitis 01/22/2017 Overview (01/22/2017): Active reflux seen at endoscopy, but no erosions or ulcers seen in the esophagus. Non-cardiac chest pain 01/01/2017 S/P laparoscopic sleeve gastrectomy 09/06/2014 Generalized anxiety disorder 10/08/2012 Bursitis of shoulder, right 01/03/2011 Osteoarthritis 01/03/2011 Depression 12/11/2010 Tobacco abuse, in remission 05/11/2010 Overview (05/11/2010): Quit 2001 Old GA (myocardial infarction) 07/20/2009 CAD (Coronary Artery Disease), S/P GA, PTCI (200 4) 07/20/2009 Overview (05/11/2010): S/P PTCI to circumflex Previously followed by Dr. Farfan HTN (hypertension) 07/20/2009 Breast CA Screening 07/08/2009 Overview (07/08/2009): Mammo: Resolved Problems Problem Noted Date Diagnosed Date Resolved Date Morbid obesity with BMI of 45.0-49.9, adult 04/29/2014 10/03/2020 Sleep apnea 01/03/2011 09/15/2014 Unspecified sleep apnea 11/30/201009/02 Post-menopause on HRT (hormo ne replacement therapy) 07/08/2009 09/15/2014 Overview (07/08/2009): Started 2002 Immunizations Immunization Administration Dates Next Due (Genasys)(12 YR UP) COVID-19 VACCINE - EMERGENCY USE AUTHORIZATION, MRNA, [id number](PF) 30 MCG/0.3 ML IM SUSP 01/05/2021,12/09/2020 (PNEUMOVAX 23)(50 YRS UP) PN EUMOCOCCAL POLYSACCHARIDE (PPV23) 0.5 ML, IM 09/02/2002 (PREVNAR 13)(6 WKS UP) PNEUM OCOCCAL CONJUGATE (PCV13) 0.5 ML, IM 09/07/2014 Family History Medical History Relation Name Comments Heart Disease Brother 1 4V CABG Stroke Brother 2 Healthy Brother 3 Lung Cancer Father Heart Disease Mother Respiratory Disease Mother Other Sister seizures Colon Cancer Neg Hx Relation Name Status Comments Brother 1 Alive Brother 2 Alive Brother 3 Alive Father Mother Sister Alive Social History Tobacco Use Types Packs/Day Years Used Date Smoking Tobacco: Former Cigarettes 1 20 1 - 06/16/2002 Smokeless Tobacco: Never Alcohol Use Standard Drinks/Week Comments Yes 1.7 (1 standard drink = 0.6 oz p ure alcohol) occ Social Connections Answer Date Recorded In a typical week, how many times do you talk on the phone with family, friends, or neighbors? Three times a week 08/31/2020 How often do you get togethe r with friends or relatives? Three times a week 08/31/2020 How often do you attend chur or sabianist services? Patient declined 08/31/2020 Do you belong to any clubs o r organizations such as restoration groups, unions, fraternal or athletic groups, or school groups? No 08/31/2020 How often do you attend meet ings of the clubs or organizations you belong to? Patient declined 08/31/2020 Marital Status Not on file 08/31/2020 Financial Resource Strain Answer Date R ecorded How hard is it for you to pa y for the very basics like food, housing, medical care, and heating? Somewhat hard 08/31/2020 Food Insecurity Answer Date Recorded Within the past 12 months, y ou worried that your food would run out before you got the money to buy more. Never true 08/31/20 20 Within the past 12 months, t he food you bought just didn't last and you didn't have money to get more. Never true 08/31/2020 Transportation Needs Answer Date Record ed In the past 12 months, has l ack of transportation kept you from medical appointments or from getting medications? No 08/04 In the past 12 months, has l ack of transportation kept you from meetings, work, or from getting things needed for daily living? No 08/31/2020 Education Answer Date Recorded What is the highest level of school you have completed or the highest degree you have received? 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 Gender Identity Not on file Sexual Orientation Not on file Occupation Industry Job Start Date Job End Date Not on file Not on file Not on file Not on file Last Filed Vital Signs Vital Sign Reading Time Taken Comments Blood Pressure 130/72 10/03/2020 10:11 AM HOME HEALTH TRAVEL PT Pulse 52 10/03/2020 10:11 AM HOME HEALTH TRAVEL PT Temperature 35.6 C (96.1 F) 10/03/2020 10:11 AM HOME HEALTH TRAVEL PT Respiratory Rate 16 10/03/2020 10:11 AM HOME HEALTH TRAVEL PT Oxygen Saturation 97% 10/03/2020 10:11 AM HOME HEALTH TRAVEL PT Inhaled Oxygen Concentration - - Weight 89.8 kg (198 lb) 10/03/2020 10:11 AM HOME HEALTH TRAVEL PT Height 152.4 cm (5') 10/03/2020 10:11 AM HOME HEALTH TRAVEL PT Body Mass Index 38.67 10/03/2020 10:11 AM HOME HEALTH TRAVEL PT Plan of Treatment Health Maintenance Due Date Last Done Comments DTAP/TDAP/TD VACCINES (1 - Tdap) 1967 ZOSTER VACCINE (1 of 2) 1998 PNEUMOCOCCAL VACCINE 50+ YEA RS (3 of 3 - PCV20 or PCV21) 09/07/2019 09/07/2014, 09/02/2002 RSV VACCINE (60+ or ) (1 - 1-dose 75+ series) 2023 Medicare [place]age [place]) Prev entative Visit/Annual Wellness Visit 09/02/2024 08/31/2020, 06/27/2018 INFLUENZA VACCINE (#1) 2025 9, 06/27/2018, 06/10/2018 COVID-19 Vaccine (3 - 2024-2 6 season) 2025 01/05/2021, 12/09/2020 OSTEOPOROSIS SCREENING 10/04/2025 10/04/2020, 2016 Colorectal Cancer Screening Discontinued FIT/FOBT Q 1 year Discontinued 02/05/2001 COLORECTAL SCREENING Discontinued FIT-DNA Q 3 years Discontinued Flex Sig/CT Colonography Q 5 years Discontinued Procedures Procedure Name Priority Date/Time Associated Diagnosis Comments XR DEXA BONE DENSITY AXIAL 1 OR MORE SITES Routine 10/04/2020 2:10 PM HOME HEALTH TRAVEL PT Asymptomatic postmenopausal state from Last 3 Months or Most Recently Relevant to Health Maintenance Results * XR DEXA BONE DENSITY AXIAL 1 OR MORE SITES (10/04/2020 2:10 PM HOME HEALTH TRAVEL PT) Anatomical Region Laterality Modality Digital Radiogra phy 10/04/2020 2:20 PM HOME HEALTH TRAVEL PT Impressions 10/04/2020 10:35 PM HOME HEALTH TRAVEL PT IMPRESSION: Abnormal examination Low bone density/osteopenic values are present at all locations lying near the average the patient's age-matched control consistent with age-appropriate physiologic demineralization responsible for her osteopenia. NOF guidelines recommend consideration of FDA-approved medical therapies in patients with FRAX determined 10-year probabilities of hip/major osteoporosis-related fractures equal or greater than 3%/20% respectively. Consider assessing fracture risk using the FRAX analysis tool for guidance of clinical management available online at www.shef.ac.uk/FRAX/. Enter [employer] for Select DXA and the Femoral Neck BMD value. Narrative 10/04/2020 10:35 PM HOME HEALTH TRAVEL PT DEXA Evaluation of the Lumbar Spine and Left Proximal Femur Reason for Consultation: Post ablative ovarian failure. Evaluation of bone mineral density. The following absorptiometry data were obtained. The quality of this examination is acceptable with regards to count density, processed images, data display and lack of important artifacts (including but not limited to motion and attenuation artifacts). Serial examination number one. L1-L4 BMD (g/cm2): 0.807 Adult T-score: -2.2 Adult Z-score: 0.1 Left Femoral Neck BMD (g/cm2): 0.591 Adult T-score: -2.3 Adult Z-score: -0.4 Left Total Hip BMD (g/cm2): 0.719 Adult T-score: -1.9 Adult Z-score: -0.2 Procedure Note Cruz Prieto MD - 10/04/2020 DEXA Evaluation of the Lumbar Spine and Left Proximal Femur Reason for Consultation: Post ablative ovarian failure. Evaluation of bone mineral density. The following absorptiometry data were obtained. The quality of this examination is acceptable with regards to count density, processed images, data display and lack of important artifacts (including but not limited to motion and attenuation artifacts). Serial examination number one. L1-L4 BMD (g/cm2): 0.807 Adult T-score: -2.2 Adult Z-score: 0.1 Left Femoral Neck BMD (g/cm2): 0.591 Adult T-score: -2.3 Adult Z-score: -0.4 Left Total Hip BMD (g/cm2): 0.719 Adult T-score: -1.9 Adult Z-score: -0.2 IMPRESSION: Abnormal examination Low bone density/osteopenic values are present at all locations lying near the average the patient's age-matched control consistent with age-appropriate physiologic demineralization responsible for her osteopenia. NOF guidelines recommend consideration of FDA-approved medical therapies in patients with FRAX determined 10-year probabilities of hip/major osteoporosis-related fractures equal or greater than 3%/20% respectively. Consider assessing fracture risk using the FRAX analysis tool for guidance of clinical management available online at www.shef.ac.uk/FRAX/. Enter [employer] for Select DXA and the Femoral Neck BMD value. Georgette BAINP DIAGNOSTIC IMAGING ORDERABLES Fi nal Result from Last 3 Months or Most Recently Relevant to Health Maintenance Insurance [facility] Advance Directives For more information, please contact: [phone] * Full Code (Latest Code Status on File) Date Activated Date Inactivated Comments 01/22/2017 10:50 AM 01/22/2017 2:12 PM * Full Code Date Activated Date Inactivated Comments 01/22/2017 10:18 AM 01/22/2017 10:50 AM * Full Code Date Activated Date Inactivated Comments 11/22/2016 10:11 AM 11/22/2016 6:05 PM * Full Code Date Activated Date Inactivated Comments 09/06/2014 10:19 AM 09/07/2014 5:54 PM * Full Code Date Activated Date Inactivated Comments 09/06/2014 6:42 AM 09/06/2014 10:19 AM Care Teams [place] Hammerer Relationship Specialty Start Date End Date Vandana Jo MD [address] [phone] PCP - General Family Practice 10/31/12
--- OUTSIDE RECORDS SUMMARY | 2025-05-24 12:24 | XMS_ITS | Encounter Summary ---
Author Organization [facility] Address [address] [place] [address] Care Team Providers Care Appointment Coordinator Name Role Phone Vandana Jo MD Primary Care Provider Encounter Details Date Type Department Care Team (Late st Contact Info) Description 05/20/2004 Inpatient Historical HIS IN BED Teodoro Farfan MD [address] [facility] [address] [place] [id number] [facility] (Primary Dx) Social History Tobacco Use Types Packs/Day Years Used Date Smoking Tobacco: Never Assessed Comments Unknown Sex and Gender Information Value Date Recorded Sex Assigned at Not on file 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 Gender Identity Not on file Sexual Orientation Not on file documented as of this encounter Plan of Treatment Not on file documented as of this encounter Visit Diagnoses Diagnosis Acute myocardial infarction, subendocardial infarction, initial episode of care (CMS/HCC)- Primary Acute myocardial infarction, subendocardial infarction, initial episode of care documented in this encounter Additional Health Concerns Infection Onset Date Last Indicated Resolved Time R/O COVID-19 08/05/2020 08/05/2020 08/08/2020 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
--- OUTSIDE RECORDS SUMMARY | 2025-05-24 12:24 | XMS_ITS | Encounter Summary ---
Author Organization [facility] Address [address] [place] [address] Care Team Providers Care Credit Support Counselor Name Role Phone Vandana Jo MD Primary Care Provider Encounter Details Date Type Department Care Team (Latest Contact Info) Description 09/12/2006 Outpatient Historical [facility] Medicine [place] [address] [phone] Zoya Willis MD NO ADDRESS ON FILE Pain in Joint, Lower Leg (Primary Dx); Morbid Obesity (CMS/HCC); Coronary Atherosclerosis of [place] Coronary Artery Social History Tobacco Use Types Packs/Day Years Used Date Smoking Tobacco: Never Assessed Comments Unknown Sex and Gender Information Value Date Recorded Sex Assigned at Not on file Legal Sex 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 Gender Identity Not on file Sexual Orientation Not on file documented as of this encounter Plan of Treatment Not on file documented as of this encounter Visit Diagnoses Diagnosis Pain in joint, lower leg- Primary Morbid obesity (CMS/HCC) Morbid obesity Coronary atherosclerosis of [place] coronary artery documented in this encounter Additional Health Concerns Infection Onset Date Last Indicated Resolved Time R/O COVID-19 08/05/2020 08/05/2020 08/08/2020 1:00 AM LOSS PREVENTION SPECIALIST documented as of this encounter Care Teams Credit Support Counselor Relationship Specialty Start Date End Date Vandana Jo MD [address] [phone] PCP - General Family Practice 10/31/12 documented as of this encounter
--- OUTSIDE RECORDS SUMMARY | 2025-05-24 12:24 | XMS_ITS | Continuity of Care Document ---
Author Organization [employer] [facility] ([facility]) Address [address] [place] [address] Insurance Providers Payer Plan Claims Address Claims Phone Policy Number Group Number Relation Employer Guarantor Name Guarantor Guarantor Address Guarantor Phone AARP [phone] Self Evelin Crisostomo [address] [place] [id number] [place] L OF [address] [place] [address] tel:[phone] Self Evelin Crisostomo [address] [place] [id number] Problems Condition ICD9 code ICD10 code SNOMED code Start Date End Date S tatus Encounter for other orthopedic aftercare Z47.89 05/17/2025 Acti ve Arthrodesis status Z98.1 05/17/2025 Ac tive Fusion of spine, lumbar region M43.26 05/17/2025 Active Spinal stenosis, lumbar region with neurogenic claudication M48.062 05/17/2025 Active Atherosclerotic heart disease of [place] coronary artery without angina pectoris I25.10 05/17/2025 Active Presence of coronary angioplasty implant and graft Z95.5 05/17/2025 Active Essential (primary) hypertension I10 05/17/2025 Active Personal history of nicotine dependence Z87.891 05/17/2025 Activ e Major depressive disorder, single episode, unspecified F32.9 05/17/2025 Active Generalized anxiety disorder F41.1 05/17/2025 Active Claustrophobia F40.240 05/17/2025 Active Hyperlipidemia, unspecified E78.5 05/17/2025 Active Unspecified osteoarthritis, unspecified site M19.90 05/17/2025 Active Bursitis of right shoulder M75.51 05/17/2025 Active Headache, unspecified R51.9 05/17/2025 Active Gastro-esophageal reflux disease without esophagitis K21.9 05/17/2025 Active Obesity, unspecified E66.9 05/17/2025 Active Body mass index (BMI) 32.0-32.9, adult Z68.32 05/17/2025 Active Difficulty in walking, not elsewhere classified R26.2 05/18/2025 Active Muscle weakness (generalized) M62.81 05/18/2025 Active Anemia, unspecified D64.9 05/20/2025 A ctive Insomnia, unspecified G47.00 05/20/2025 Active Hypokalemia E87.6 05/20/2025 Active Magnesium deficiency E61.2 05/20/2025 Active Results Test Result Date/Time Value / Unit Interp. Refere nce Range Tuberculosis reaction wheal[ 35731-9] Tuberculosis reaction wheal [15589-1] 05/18/2025 05:00 PM 0 mm NEG Allergies, adverse reactions, alerts Substance Reaction Date Status Type acetaminophen 05/17/2025 Non Drug diphenhydramine (bulk) 05/17/2025 No n Drug diphenhydramine HCl 05/17/2025 Non D rug hydromorphone 05/17/2025 Non Drug lisinopril 05/17/2025 Non Drug Milk Containing Products (Dairy) 05/17/2025 Non Drug morphine 05/17/2025 Non Drug oxycodone 05/17/2025 Non Drug Percocet 05/17/2025 Non Drug prochlorperazine 05/17/2025 Non Drug Propoxyphene 05/17/2025 Non Drug Immunizations Vaccine Route Date Status COVID-19 Vaccine Unassigned Route of Administration Refused COVID-19 Vaccine Unassigned Route of Administration Completed COVID-19 Vaccine Unassigned Route of Administration Completed COVID-19 Vaccine Unassigned Route of Administration Completed RSV Vaccine Unassigned Route of Administration 2024 Completed Medications Medication Instructions Route Dosage Frequency Start Date Stop Date Indications Status albuterol sulfate 90 mcg/actuation HFA aerosol inhaler (albuterol sulfate) 2 puffs, inhalation, Every 6 Hours - PRN, for SOB / wheezing inhalatio n 1.0 6.0 h 2024 Active albuterol sulfate 2.5 mg /3 mL (0.083 %) solution for nebulization (albuterol sulfate) 1 neb, inhalation, Every 6 Hours - PRN, for sob or wheezing inhalatio n 1.0 6.0 h 2024 Active atorvastatin 40 mg tablet (atorvastatin) 1 tab, oral, At Bedtime oral 1.0 2024 Active buspirone 10 mg tablet (buspirone) 1 tab, oral, Three Times A Day oral 1.0 8.0 h 2024 Active cholecalcifero l (vitamin D3) 1,250 mcg (50,000 unit) capsule (cholecalcifer ol (vitamin D3)) 1 cap, oral, Once A Day on Sat, TI for ergocalciferol oral 1.0 1.0 d 2024 Active Daily-Chencho (with folic acid) (multivitamin with folic acid) 400 mcg tablet (Daily-Chencho (with folic acid) (multivitamin with folic acid)) 1 tab, oral, Once A Day oral 1.0 1.0 d 2024 Active diclofenac sodium 1 % gel (diclofenac sodium) 4 grams, topical, Four Times A Day, apply to affected area(s) topical 1.0 6.0 h 2024 Active Dulcolax (bisacodyl) (bisacodyl) 10 mg suppository (Dulcolax (bisacodyl) (bisacodyl)) 1 suppository, rectal, Once A Day - PRN, Give rectally if can't take p/o, if no results from MOM rectal 1.0 1.0 d 2024 Active famotidine 20 mg tablet (famotidine) 1 tab, oral, Twice A Day oral 1.0 12.0 h 2024 Active hydrocodone-ac etaminophen 10-325 mg tablet (hydrocodone-a cetaminophen) 1 tab, oral, Every 4 Hours - PRN, exempt R52, for pain oral 1.0 4.0 h 2024 Active lactulose 10 gram/15 mL solution (lactulose) 30 mL (20 grams), oral, Three Times A Day - PRN, for constipation oral 1.0 8.0 h 2024 Active magnesium oxide 400 mg (241.3 mg magnesium) tablet (magnesium oxide) 1 tab, oral, Once A Day, TI for magnesium oral 1.0 1.0 d 2024 Active omeprazole 40 mg capsule,delaye d release(DR/EC) (omeprazole) 1 cap, oral, Once A Day oral 1.0 1.0 d 2024 Active potassium chloride 20 mEq tablet extended release (potassium chloride) 1 tab, oral, Twice A Day oral 1.0 12.0 h 2024 Active pregabalin 75 mg capsule (pregabalin) 1 cap, oral, Every 8 Hours, exempt R52 oral 1.0 8.0 h 2024 Active sertraline 100 mg tablet (sertraline) 1 tab, oral, Once A Day oral 1.0 1.0 d 2024 Active topiramate 25 mg tablet (topiramate) 1 tab, oral, Twice A Day oral 1.0 12.0 h 2024 Active trazodone 100 mg tablet (trazodone) 1 tab, oral, At Bedtime oral 1.0 2024 Active Tylenol (acetaminophen ) 325 mg tablet (Tylenol (acetaminophen )) 2 tabs/650mg, oral, Every 6 Hours - PRN, as needed for PRN pain/increased tempMay give rectally if necessary oral 1.0 6.0 h 05/17 Active ferrous sulfate 325 mg (65 mg iron) tablet (ferrous sulfate) 1 tab, oral, Once A Day Every Other Day, dosing per ti oral 1.0 1.0 d 2024 Active Tubersol (tuberculin ppd) 5 tub. unit /0.1 mL solution (Tubersol (tuberculin ppd)) 0.1ml, intradermal, Once - One Time, Administer the morning after admission intraderm al 1.0 05/18 Active Arexvy (PF) (rsvpref3 antigen-as01e (pf)) 120 mcg/0.5 mL suspension for reconstitution (Arexvy (PF) (rsvpref3 antigen-as01e (pf))) 0.5ml, intramuscular, Once - One Time intramusc ular 1.0 05/20 Active Vital Signs Date Vital Result Comment 05/17/2025 08:51 PM Body Weight (54550-9) 164.2 [lb_av ] Body Mass Index (01949-7) 32.06 kg/m2 05/17/2025 08:48 PM Temperature (8310-5) 98.1 [degF] Oxygen Saturation (17112-1) 96 % Respiratory Rate (9279-1) 20 /min Heart Rate (8867-4) 63 /min Blood Pressure Systolic (8480-6) 112 mm[Hg] Blood Pressure Diastolic (8462-4) 69 mm[Hg] Body Height (8302-2) 60 [in_us] 05/18/2025 08:46 AM Temperature (8310-5) 97.6 [degF] Oxygen Saturation (76826-3) 94 % Respiratory Rate (9279-1) 18 /min Heart Rate (8867-4) 68 /min Blood Pressure Systolic (8480-6) 99 mm[Hg] Blood Pressure Diastolic (8462-4) 58 mm[Hg] 05/18/2025 01:31 PM Body Weight (26357-8) 164 [lb_av] Body Mass Index (98058-5) 32.03 kg/m2 05/18/2025 08:22 PM Temperature (8310-5) 98.3 [degF] Oxygen Saturation (58243-5) 96 % Respiratory Rate (9279-1) 19 /min Heart Rate (8867-4) 66 /min Blood Pressure Systolic (8480-6) 105 mm[Hg] Blood Pressure Diastolic (8462-4) 84 mm[Hg] 05/19/2025 03:54 PM Oxygen Saturation (02001-1) 98 % Respiratory Rate (9279-1) 16 /min Heart Rate (8867-4) 58 /min Blood Pressure Systolic (8480-6) 92 mm[Hg] Blood Pressure Diastolic (8462-4) 58 mm[Hg] 05/19/2025 12:54 PM Body Weight (83848-6) 169.8 [lb_av ] Body Mass Index (32978-3) 33.16 kg/m2 05/20/2025 12:07 AM Oxygen Saturation (04604-4) 94 % Respiratory Rate (9279-1) 20 /min Heart Rate (8867-4) 73 /min 05/19/2025 11:42 PM Oxygen Saturation (74472-4) 93 % Respiratory Rate (9279-1) 20 /min Heart Rate (8867-4) 70 /min 05/19/2025 08:21 PM Temperature (8310-5) 98.2 [degF] Oxygen Saturation (78370-5) 92 % Respiratory Rate (9279-1) 20 /min Heart Rate (8867-4) 72 /min Blood Pressure Systolic (8480-6) 154 mm[Hg] Blood Pressure Diastolic (8462-4) 69 mm[Hg] 05/20/2025 04:44 PM Oxygen Saturation (33845-9) 92 % 05/20/2025 04:34 PM Respiratory Rate (9279-1) 22 /min Heart Rate (8867-4) 80 /min 05/20/2025 04:23 PM Body Weight (23839-5) 171.8 [lb_av ] Body Mass Index (29458-2) 33.55 kg/m2 05/20/2025 11:25 AM Temperature (8310-5) 97.9 [degF] Oxygen Saturation (27022-2) 95 % Respiratory Rate (9279-1) 19 /min Heart Rate (8867-4) 74 /min Blood Pressure Systolic (8480-6) 112 mm[Hg] Blood Pressure Diastolic (8462-4) 63 mm[Hg] 05/20/2025 07:45 PM Temperature (8310-5) 98.2 [degF] Respiratory Rate (9279-1) 18 /min Heart Rate (8867-4) 77 /min Blood Pressure Systolic (8480-6) 132 mm[Hg] Blood Pressure Diastolic (8462-4) 84 mm[Hg] 05/20/2025 06:40 PM Oxygen Saturation (88949-1) 90 % Respiratory Rate (9279-1) 20 /min Heart Rate (8867-4) 83 /min 05/20/2025 06:39 PM Temperature (8310-5) 98.2 [degF] 05/21/2025 08:26 PM Temperature (8310-5) 98.6 [degF] Oxygen Saturation (48246-3) 98 % Respiratory Rate (9279-1) 23 /min Heart Rate (8867-4) 66 /min Blood Pressure Systolic (8480-6) 122 mm[Hg] Blood Pressure Diastolic (8462-4) 65 mm[Hg] 05/21/2025 06:09 PM Temperature (8310-5) 98.6 [degF] Oxygen Saturation (65103-9) 97 % Respiratory Rate (9279-1) 19 /min Heart Rate (8867-4) 93 /min Blood Pressure Systolic (8480-6) 115 mm[Hg] Blood Pressure Diastolic (8462-4) 87 mm[Hg] 05/22/2025 03:38 PM Temperature (8310-5) 97.8 [degF] Oxygen Saturation (46117-1) 92 % Respiratory Rate (9279-1) 21 /min Heart Rate (8867-4) 81 /min Blood Pressure Systolic (8480-6) 118 mm[Hg] Blood Pressure Diastolic (8462-4) 62 mm[Hg] 05/23/2025 10:04 AM Temperature (8310-5) 98 [degF] Oxygen Saturation (59650-6) 96 % Respiratory Rate (9279-1) 18 /min Heart Rate (8867-4) 60 /min Blood Pressure Systolic (8480-6) 103 mm[Hg] Blood Pressure Diastolic (8462-4) 61 mm[Hg] 05/23/2025 08:58 PM Temperature (8310-5) 96.9 [degF] Oxygen Saturation (60120-7) 97 % Respiratory Rate (9279-1) 16 /min Heart Rate (8867-4) 72 /min Blood Pressure Systolic (8480-6) 109 mm[Hg] Blood Pressure Diastolic (8462-4) 66 mm[Hg] 05/24/2025 07:08 AM Temperature (8310-5) 97.6 [degF] Oxygen Saturation (26060-6) 93 % Respiratory Rate (9279-1) 18 /min Heart Rate (8867-4) 70 /min Blood Pressure Systolic (8480-6) 118 mm[Hg] Blood Pressure Diastolic (8462-4) 65 mm[Hg] Social History No smoking Hx information available Encounters Type CPT Code Date Location Provider Indication s encounter report 05/17/2025 07:21 PM Ondina Varner DO 01 Advance Directives Directive Description Verification Date Supporting Document(s) Other Directive
--- OUTSIDE RECORDS SUMMARY | 2025-05-24 12:24 | XMS_ITS | Encounter Summary ---
Author Organization [facility] Address [address] [place] [address] Care Team Providers Care Chemicals Distiller Name Role Phone Vandana Jo MD Primary Care Provider [phone] Encounter Details Date Type Department Care Team (Latest Contact Info) Description 12/21/2004 Outpatient Historical [facility] Cardiology- [place] [address] [place] [address] Teodoro Farfan MD [address] [facility] [address] [place] [address] CHR ISCHEMIC HRT DIS NEC (Primary Dx); HYPERTENSION NOS; Pure hypercholesterolem Social History Tobacco Use Types Packs/Day Years Used Date Smoking Tobacco: Never Assessed Comments Unknown Sex and Gender Information Value Date Recorded Sex Assigned at Not on file Legal Sex Female 5:36 AM CURATOR Gender Identity Not on file Sexual Orientation Not on file documented as of this encounter Plan of Treatment Not on file documented as of this encounter Visit Diagnoses Diagnosis Other specified forms of chronic ischemic heart disease- Primary Unspecified essential hypertension Pure hypercholesterolem Pure hypercholesterolemia documented in this encounter Additional Health Concerns Infection Onset Date Last Indicated Resolved Time R/O COVID-19 08/05/2020 08/05/2020 08/08/2020 1:00 AM CURATOR documented as of this encounter Care Teams Chemicals Distiller Relationship Specialty Start Date End Date Vandana Jo MD [address] [facility] [address] [place] [address] PCP - General Family Practice 10/31/12 documented as of this encounter
--- OUTSIDE RECORDS SUMMARY | 2025-05-24 12:24 | XMS_ITS | Encounter Summary ---
Author Organization [facility] Address [address] [place] [address] Care Team Providers Care Application Designer Name Role Phone Vandana Jo MD Primary Care Provider Encounter Details Date Type Department Care Team (Latest Contact Info) Description 11/14/2006 Outpatient Historical [facility] Cardiology- [place] [address] [place] [address] Teodoro Farfan MD [address] [facility] [address] [place] [address] Coronary Atherosclerosis of [place] Coronary Artery (Primary Dx); Benign Hypertension Social History Tobacco Use Types Packs/Day Years Used Date Smoking Tobacco: Never Assessed Comments Unknown Sex and Gender Information Value Date Recorded Sex Assigned at Not on file Legal Sex Female 5:36 AM TRACTION POWER ENGINEER Gender Identity Not on file Sexual Orientation Not on file documented as of this encounter Plan of Treatment Not on file documented as of this encounter Visit Diagnoses Diagnosis Coronary atherosclerosis of [place] coronary artery- Primary Benign hypertension Essential hypertension, benign documented in this encounter Additional Health Concerns Infection Onset Date Last Indicated Resolved Time R/O COVID-19 08/05/2020 08/05/2020 08/08/2020 1:00 AM TRACTION POWER ENGINEER documented as of this encounter Care Teams Application Designer Relationship Specialty Start Date End Date Vandana Jo MD [address] [facility] [address] [place] [phone] PCP - General Family Practice 10/31/12 documented as of this encounter
--- OUTSIDE RECORDS SUMMARY | 2025-05-24 12:24 | XMS_ITS | Encounter Summary ---
Author Organization [facility] Address [address] [place] [address] Care Team Providers Care Pompom Maker Name Role Phone Vandana Jo MD Primary Care Provider Encounter Details Date Type Department Care Team (Late st Contact Info) Description 09/27/2005 Outpatient Historical [facility] Family Medicine [address] [address] Social History Tobacco Use Types Packs/Day Years Used Date Smoking Tobacco: Never Assessed Comments Unknown Sex and Gender Information Value Date Recorded Sex Assigned at Not on file Legal Sex Female 5:36 AM PRODUCTION SUPERVISOR OFF SHIFT Gender Identity Not on file Sexual Orientation Not on file documented as of this encounter Plan of Treatment Not on file documented as of this encounter Visit Diagnoses Not on filedocumented in this encounter Additional Health Concerns Infection Onset Date Last Indicated Resolved Time R/O COVID-19 08/05/2020 08/05/2020 08/08/2020 1:00 AM PRODUCTION SUPERVISOR OFF SHIFT documented as of this encounter Care Teams Pompom Maker Relationship Specialty Start Date End Date Vandana Jo MD [address] [phone] PCP - General Family Practice 10/31/12 documented as of this encounter
--- OUTSIDE RECORDS SUMMARY | 2025-05-24 12:24 | XMS_ITS | Encounter Summary ---
Author Organization [facility] Address [address] [place] [address] Care Team Providers Care Culinary Chef Name Role Phone Vandana Jo MD Primary Care Provider [phone] Encounter Details Date Type Department Care Team (Late st Contact Info) Description 12/27/2004 Outpatient Historical [facility] Teodoro Farfan MD [address] [facility] [address] [place] [address] Social History Tobacco Use Types Packs/Day Years Used Date Smoking Tobacco: Never Assessed Comments Unknown Sex and Gender Information Value Date Recorded Sex Assigned at Not on file Legal Sex Female 5:36 AM MENTAL HEALTH SOCIAL WORKER Gender Identity Not on file Sexual Orientation Not on file documented as of this encounter Plan of Treatment Not on file documented as of this encounter Procedures Procedure Name Priority Date/Time Associated Diagnosis Comments TSH Routine 12/27/2004 5:30 PM CDT documented in this encounter Results * TSH (12/27/2004 5:30 PM CDT) TSH 2.12 0.49 - 4.67 uIU/ml INTERFACE SYSTEM 12/27/2004 5:30 PM CDT us Teodoro Farfan MD CHEMISTRY ORDERABLES Final Resu lt INTERFACE SYSTEM Refer to clinic/hospital department documented in this encounter Visit Diagnoses Not on filedocumented in this encounter Additional Health Concerns Infection Onset Date Last Indicated Resolved Time R/O COVID-19 08/05/2020 08/05/2020 08/08/2020 1:00 AM MENTAL HEALTH SOCIAL WORKER documented as of this encounter Care Teams Culinary Chef Relationship Specialty Start Date End Date Vandana Jo MD [address] [address] PCP - General Family Practice 10/31/12 documented as of this encounter
--- OUTSIDE RECORDS SUMMARY | 2025-05-24 12:24 | XMS_ITS | Encounter Summary ---
Author Organization [facility] Address [address] [place] [address] Care Team Providers Care Strike Planning Applications Name Role Phone Vandana Jo MD Primary Care Provider Encounter Details Date Type Department Care Team (Latest Contact Info) Description 06/28/2005 Outpatient [facility] Medicine [address] [address] Evan Kenney NP NO ADDRESS ON FILE SCREENING MAL NEOP-BREAST NOS (Primary Dx); ACUTE PHARYNGITIS; ACUTE SINUSITIS NOS; MALAISE AND FATIGUE NEC Social History Tobacco Use Types Packs/Day Years Used Date Smoking Tobacco: Never Assessed Comments Unknown Sex and Gender Information Value Date Recorded Sex Assigned at Not on file Legal Sex Female 5:36 AM HEAT PUMP INSTALLER Gender Identity Not on file Sexual Orientation Not on file documented as of this encounter Plan of Treatment Not on file documented as of this encounter Visit Diagnoses Diagnosis Breast screening, unspecified- Primary Acute pharyngitis Acute sinusitis, unspecified Other malaise and fatigue documented in this encounter Additional Health Concerns Infection Onset Date Last Indicated Resolved Time R/O COVID-19 08/05/2020 08/05/2020 08/08/2020 1:00 AM HEAT PUMP INSTALLER documented as of this encounter Care Teams Strike Planning Applications Relationship Specialty Start Date End Date Vandana Jo MD [address] [phone] PCP - General Family Practice 10/31/12 documented as of this encounter
--- OUTSIDE RECORDS SUMMARY | 2025-05-24 12:25 | XMS_ITS | Encounter Summary ---
Author Organization [facility] Address [address] Cordon: [place] [address] Care Team Providers Care Refinery Operator Helper Crude Unit Name Role Phone Vandana Jo MD Primary Care Provider Encounter Details Date Type Department Care Team (Late st Contact Info) Description 10/01/2005 Outpatient Historical Zoya Willis MD NO ADDRESS ON FILE Social History Tobacco Use Types Packs/Day Years Used Date Smoking Tobacco: Never Assessed Comments Unknown Sex and Gender Information Value Date Recorded Sex Assigned at Not on file Legal Sex Female 5:36 AM DRYWALL BOARDHANGER Gender Identity Not on file Sexual Orientation Not on file documented as of this encounter Plan of Treatment Not on file documented as of this encounter Procedures Procedure Name Priority Date/Time Associated Diagnosis Comments T3 FREE Routine 10/01/2005 5:20 PM DRYWALL BOARDHANGER documented in this encounter Results * T3 FREE (10/01/2005 5:20 PM DRYWALL BOARDHANGER) T3 FREE See Sep Report INTERFACE SYSTEM 10/01/2005 5:20 PM DRYWALL BOARDHANGER us Historical Provider CHEMISTRY ORDERABLES Final R esult INTERFACE SYSTEM Refer to clinic/hospital department documented in this encounter Visit Diagnoses Not on filedocumented in this encounter Additional Health Concerns Infection Onset Date Last Indicated Resolved Time R/O COVID-19 08/05/2020 08/05/2020 08/08/2020 1:00 AM DRYWALL BOARDHANGER documented as of this encounter Care Teams Refinery Operator Helper Crude Unit Relationship Specialty Start Date End Date Vandana Jo MD [address] [address] PCP - General Family Practice 10/31/12 documented as of this encounter
--- OUTSIDE RECORDS SUMMARY | 2025-05-24 12:25 | XMS_ITS | Encounter Summary ---
Author Organization [facility] Address [address] [place] [address] Care Team Providers Care Sales Support Engineer Name Role Phone Vandana Jo MD Primary Care Provider Encounter Details Date Type Department Care Team (Late st Contact Info) Description 10/01/2005 Outpatient Historical [facility] Family Medicine- [address] [place] [address] Social History Tobacco Use Types Packs/Day Years Used Date Smoking Tobacco: Never Assessed Comments Unknown Sex and Gender Information Value Date Recorded Sex Assigned at Not on file Legal Sex Female 5:36 AM LOW VOLTAGE ELECTRICIAN Gender Identity Not on file Sexual Orientation Not on file documented as of this encounter Plan of Treatment Not on file documented as of this encounter Visit Diagnoses Not on filedocumented in this encounter Additional Health Concerns Infection Onset Date Last Indicated Resolved Time R/O COVID-19 08/05/2020 08/05/2020 08/08/2020 1:00 AM LOW VOLTAGE ELECTRICIAN documented as of this encounter Care Teams Sales Support Engineer Relationship Specialty Start Date End Date Vandana Jo MD [address] [facility] [address] [place] [address] PCP - General Family Practice 10/31/12 documented as of this encounter
--- NOTE | 2025-05-24 12:32 | USCV_ITS ---
Evelin Crisostomo Age: 75 Gender: F : 1950 Exam Date: 05/24/2025 12:57 Ordering Phys: Balwinder Love DO Technologist: Exam Location: [facility] Indication: lt leg swelling PROCEDURES: Venous duplex imaging was performed in only the left lower extremity. The following venous structures were evaluated: common femoral vein, profunda vein, proximal portion of the greater saphenous vein, superficial femoral vein, and the popliteal vein. In addition, the posterior tibial and peroneal trunk were evaluated. FINDINGS: Evidence of acute partial deep vein thrombosis in the left common femoral through popliteal veins . Evidence of acute occlusive deep vein thrombosis in the left posterior tibial vein with abnormal flow dynamics. CONCLUSIONS Acute DVT left lower extremtity. Dr. Paulina Denney DO (Electronically Signed) Final Date: 24 May 2025 14:43 S
--- NOTE | 2025-05-24 12:32 | W.ED.GENADLT ---
HPI - General Adult General: Chief complaint: General Medical Stated complaint: back pain, poss DVT, PE Time Seen by Provider: 05/24/25 12:19 History of Present Illness: 75-year-old female presents emergency room via ambulance from local halfway nurse concerned about DVT. She had an episode of chest pain this morning with shortness of breath that resolved she has some significant swelling in her left lower leg. In the past few months she has had a knee arthroplasty as well as lumbar laminectomy. She had cauda equina syndrome still has not completely recovered function of her bladder or with ambulation. She denies chest pain or shortness of breath. Associated symptoms: Deny chest pain, dyspnea or rash Related Data Home Medications ?Medication ?Instructions ?Recorded ?Confirmed omeprazole 40 mg capsule,delayed 40 mg PO DAILY 08/27/21 05/24/25 release sertraline 100 mg tablet 100 mg PO DAILY 08/27/21 05/24/25 topiramate 25 mg tablet 25 mg PO BID 08/27/21 05/24/25 RSVPreF3 antigen-AS01E 120 mcg IM ONCE 05/24/25 05/24/25 adjuvant(PF) 120 mcg/0.5 mL IM suspension, kit (Arexvy (PF)) acetaminophen 325 mg tablet 650 mg PO Q6H PRN Mild pain or 05/24/25 05/24/25 (Tylenol) fever albuterol sulfate 2.5 mg/3 mL 2.5 mg continuous nebulization Q6H 05/24/25 05/24/25 (0.083 %) solution for nebulization PRN Shortness Of Breath Or Wheezing albuterol sulfate 90 mcg/actuation 2 puff inhalation Q6H PRN 05/24/25 05/24/25 aerosol inhaler Shortness Of Breath Or Wheezing atorvastatin 40 mg tablet 40 mg PO BEDTIME 05/24/25 05/24/25 bisacodyl 10 mg rectal suppository 10 mg HI DAILY PRN Constipation If 05/24/25 05/24/25 (Dulcolax (bisacodyl)) cant take po, no results from [facility] buspirone 10 mg tablet 10 mg PO TID 05/24/25 05/24/25 cholecalciferol (vitamin D3) 1,250 1,250 unit PO .WEEKLY 09/22/25 09/22/25 mcg (50,000 unit) capsule famotidine 20 mg tablet 20 mg PO BID 05/24/25 05/24/25 ferrous sulfate 325 mg (65 mg 325 mg PO EVERY OTHER DAY 05/24/25 05/24/25 iron) tablet (FeroSul) hydrocodone 10 mg-acetaminophen 1 tab PO Q4H PRN moderate to 05/24/25 05/24/25 325 mg tablet severe pain lactulose 10 gram/15 mL oral 30 ml PO TID PRN Constipation 05/24/25 05/24/25 solution magnesium oxide 400 mg (241.3 mg 400 mg PO DAILY 05/24/25 05/24/25 magnesium) tablet multivitamin with folic acid 400 1 tab PO DAILY 05/24/25 05/24/25 mcg tablet (Daily-Chencho (with folic acid)) potassium chloride 20 mEq 20 meq PO BID 05/24/25 05/24/25 tablet,extended release pregabalin 75 mg capsule 75 mg PO Q8H 05/24/25 05/24/25 trazodone 100 mg tablet 100 mg PO BEDTIME 05/24/25 05/24/25 tuberculin PPD 5 tub. unit/0.1 mL 0.1 ml intradermal ONCE 05/24/25 05/24/25 intradermal injection solution (Tubersol) Previous Rx's ?Medication ?Instructions ?Recorded diclofenac sodium 1 % topical gel 4 g topical QID #100 grams 08/28/24 (Arthritis Pain (diclofenac)) Allergies Allergy/AdvReac Type Severity Reaction Status Date / Time lisinopril Allergy Unknown Verified 05/24/25 14:23 morphine Allergy ALGY-Anaphy Verified 04/21/25 07:37 laxis oxycodone (From Percocet) Allergy ADR/ALGY-Fl Verified 04/21/25 07:37 ushing prochlorperazine (From Allergy ADR-Itching Verified 04/21/25 07:37 Compazine) propoxyphene (From Allergy ADR-Hyperte Verified 04/21/25 07:37 Darvocet-N) nsion Review of Systems Const: Denies: fever(s) or chills Card: Denies: chest pain Resp: Denies: dyspnea GI: Denies: abdominal pain : Denies: dysuria, urinary frequency or urinary urgency Musc: Denies: neck pain or back pain Skin/Breast: Denies: rash PFSH ED PFSH: Medical History Spinal stenosis, lumbar region with neurogenic claudication Coronary artery disease involving [place] coronary artery of [place] heart without angina pectoris history of stent Anxiety Insomnia due to medical condition Osteoarthritis Obesity (BMI 30-39.9) Gastroesophageal reflux disease without esophagitis Claustrophobia Mixed hyperlipidemia Major depressive disorder with single episode, in full remission Primary hypertension Varus deformity of knee Surgical History History of lumbar spinal fusion (05/13/25) Dr Maribeth Butt, done emergently due to changes in bowel and bladder function, L1-L5 fusion History of coronary artery stent placement (2003) History of arthroplasty of right hip (06/13/17) Dr Elias. Right bipolar hip arthroplasty utilizing the eflow Accolade to 132? neck angle hip stem size 5 with a 35 mm neck length and a Shanthi femoral head size 26 mm with a +4 mm offset and a universal head bipolar component size 46 mm x 26 mm. Status post total left knee replacement not using cement (03/09/25) Date of procedure: March 09, 2025 Diagnosis: Severe degenerative osteoarthritis left knee with varus deformity and lateral laxity Procedure done: Left total knee arthroplasty with Avila guidance Implants: The Parsons total knee system with a size 3 triathlon beaded cruciate retaining femur left, a triathlon titanium tibial component size 3 beaded, a triathlon X3 tibial bearing CS insert size 3 x 10 mm and a beaded triathlon titanium asymmetric patella size 32 x 10 mm History of appendectomy Social History Smoking and tobacco/nicotine status: never used tobacco/nicotine Physical Exam Const: GENERAL APPEARANCE: cooperative ORIENTATION/CONSCIOUSNESS: Yes awake, Yes oriented to person, Yes oriented to place and Yes oriented to time HENMT: COMMON NORMALS: normocephalic, atraumatic and hearing grossly normal bilaterally HEAD & SCALP: normocephalic and atraumatic Resp: COMMON NORMALS: normal respiratory effort, No retractions, No use of accessory muscles and clear to auscultation bilaterally AUSCULTATION: clear to auscultation bilaterally Cardio: COMMON NORMALS: regular rate, regular rhythm and No murmurs present (Cardio) RATE: regular rate RHYTHM: regular rhythm GI: COMMON NORMALS: Soft to palpation and No hepatosplenomegaly present AUSCULTATION: Yes normoactive bowel sounds PALPATION: Yes Soft to palpation, No Tenderness to palpation present (GI), No Guarding due to palpation present (GI) and Yes No hepatosplenomegaly present Extremity: OTHER: 2+ edema of the right lower extremity. Tender calf. Tenderness to palpation of the medial distal thigh Neuro: SENSORIUM/ORIENTATION: Yes oriented to person, Yes oriented to place and Yes oriented to time Skin: COMMON NORMALS: no rashes or lesions noted GENERAL SKIN EXAM: no rashes or lesions noted Course Vital Signs: Vital signs: Vital Signs Temperature 98.2 F 05/24/25 12:20 Pulse Rate 71 05/24/25 15:57 Respiratory Rate 16 05/24/25 12:20 Blood Pressure 116/71 05/24/25 15:57 Pulse Oximetry 99 05/24/25 15:57 Oxygen Delivery Me thod Room Air 05/24/25 12:20 MDM - General Adult Medical Decision Making Patient has worsening acute normocytic anemia. Hemoglobin has dropped over the last several months. She is at 6.9 today. Venous duplex of the leg shows extensive DVT. She denies any medic easy melena hematemesis coffee-ground emesis. Will admit that she will need to be anticoagulated but also evaluated further for the anemia some of this may be losses from surgery along with chronic disease and she just has not regained. Discussed with hospitalist at the time she is seen she is not tachypneic hypoxic or tachycardic hospitalist will review and decide if she wishes to have CTA done. No chest pain at this time. Medical Records I reviewed the patient's medical records. Lab Data I reviewed the patient's lab results. 05/24/25 12:32 05/24/25 12:32 Radiology Impressions Chest X-Ray 05/24/25 12:20 IMPRESSION: 1. Negative chest. Laboratory Results WBC 5.27 10^3/uL (3.29-11.43) 05/24/25 12:32 RBC 2.61 10^6/uL (3.85-5.65) L 05/24/25 12:32 Hgb 6.90 g/dL (11.27-16.99) L 05/24/25 12:32 Hct 23.2 % (36-47) L 05/24/25 12:32 MCV 88.9 fl (85-98) 05/24/25 12:32 MCH 26.4 pg (27-33) L 05/24/25 12:32 MCHC 29.7 g/dL (30-55) L 05/24/25 12:32 RDW 17.7 % (12.1-15.1) H 05/24/25 12:32 Plt Count 182 10^3/cmm (157-399) 05/24/25 12:32 MPV 10.6 fL (7.4-10.4) H 05/24/25 12:32 Neut % (Auto) 67.9 % 05/24/25 12:32 Lymph % (Auto) 16.9 % 05/24/25 12:32 Atkinson % (Auto) 11.6 % 05/24/25 12:32 Eos % (Auto) 2.1 % 05/24/25 12:32 Baso % (Auto) 0.2 % 05/24/25 12: Reticulocyte % (Auto) 2.0 % (0.5-2.0) 05/24/25 12: Neut # (Auto) 3.58 10^3/uL (1.8-7.7) 05/24/25 12:32 Lymph # (Auto) 0.9 10^3/uL (0.8-4.8) 05/24/25 12:32 Atkinson # (Auto) 0.6 10^3/uL (0.2-0.9) 05/24/25 12:32 Eos # (Auto) 0.1 10^3/uL (0.0-0.8) 05/24/25 12:32 Baso # (Auto) 0.0 10^3/uL (0.0-0.1) 05/24/25 12:32 Nucleated RBC % (auto) 0 % 05/24/25 12:32 Nucleated RBCs # 0.0 /100WBC 05/24/25 12:32 PT 14.20 SECONDS (12.1-14.9) 05/24/25 12:32 INR 1.03 (0.8-1.2) 05/24/25 12:32 Sodium 140 mmol/L (136-145) 05/24/25 12:32 Potassium 4.4 mmol/L (3.5-5.1) 05/24/25 12:32 Chloride 108 mmol/L (98-107) H 05/24/25 12:32 Carbon Dioxide 21 mmol/L (22-29) L 05/24/25 12:32 Anion Gap 15.4 (5-19) 05/24/25 12:32 BUN 18 mg/dL (8-23) 05/24/25 12:32 Creatinine 1.0 mg/dL (0.5-0.9) H 05/24/25 12:32 GFR Calculation Not Reportable 05/24/25 12:32 Glucose 100 mg/dL (65-115) 05/24/25 12:32 Calculated Osmolality 292 mOsm/kg (285-295) 05/24/25 12:32 Calcium 8.2 mg/dL (8.5-10.5) L 05/24/25 12:32 Iron 15 ug/dL (37-145) L 05/24/25 12:32 TIBC 183 mcg/dl 05/24/25 12:32 % Saturation 8.1 % (20-50) L 05/24/25 12:32 Unsat Iron Binding 168 ug/dL (112-347) 05/24/25 12:32 Total Bilirubin 0.2 mg/dL (0.15-1.2) 05/24/25 12:32 AST 13 U/L (0-32) 05/24/25 12:32 ALT 6 U/L (0-33) 05/24/25 12:32 Alkaline Phosphatase 88 U/L (35-105) 05/24/25 12:32 Troponin T Baseline 20 ng/L (0-10) H 05/24/25 12:32 Troponin T 120 Minute 21.24 ng/L (0-10) H 05/24/25 14:26 Delta Troponin T 1.24 ABS# (0-10) 05/24/25 14:26 Total Protein 5.5 g/dL (6.6-8.7) L 05/24/25 12:32 Albumin 2.8 g/dL (3.5-5.2) L 05/24/25 12:32 Globulin 2.7 g/dL (1.3-4.6) 05/24/25 12:32 Vitamin B12 555 pg/mL (232-1245) 05/24/25 12:32 Folate 15.1 ng/mL (4.8-37.3) 05/24/25 12:32 Urine Color Yellow (Yellow) 05/24/25 13:18 Urine Appearance Clear (CLEAR) 05/24/25 13:18 Urine pH 7.5 (5-7) 05/24/25 13:18 Ur Specific Viking 1.020 (1.005-1.030) 05/24/25 13:18 Urine Protein Negative (Negative) 05/24/25 13:18 Urine Glucose (UA) Negative (Normal) 05/24/25 13:18 Urine Ketones Negative (Negative) 05/24/25 13:18 Urine Blood Negative (Negative) 05/24/25 13:18 Urine Nitrate Negative (Negative) 05/24/25 13:18 Urine Bilirubin Negative (Negative) 05/24/25 13:18 Urine Urobilinogen 1.0 mg/dL (Negative) 05/24/25 13:18 Ur Leukocyte Esterase Trace (Negative) A 05/24/25 13:18 Urine RBC 0-2 /hpf (0-2) 05/24/25 13:18 Urine WBC 0-5 /hpf (0-5) 05/24/25 13:18 Ur Squamous Epith Cells 0-5 /hpf (0-5) 05/24/25 13:18 Amorphous Sediment Not Reportable 05/24/25 13:18 Urine Bacteria None seen /hpf (NONE) 05/24/25 13:18 Hyaline Casts 1.21 /lpf 05/24/25 13:18 Blood Type O Positive 05/24/25 12:54 Rho(D) Type Rh positive 05/24/25 12:54 Antibody Screen Negative 05/24/25 12:54 All radiology interpretation(s) finalized by discharge EKG Data EKG 1: Interpretation: EKG 05/24/2025 12:49 AM sinus bradycardia rate of 56 HI interval 120 QTc [address] changes noted compared to EKG 02/23/2025 no acute changes Computer generated interpretation: Chest X-Ray 05/24/25 12:20 IMPRESSION: 1. Negative chest. EKG 2: Interpretation: EKG 05/24/2025 1330 sinus bradycardia rate of 50. Normal 128 QTc 376. No acute ST changes noted compared to EKG done earlier today no change Computer generated interpretation: Chest X-Ray 05/24/25 12:20 IMPRESSION: 1. Negative chest. Discharge Plan Discharge Patient Disposition: Admitted As Inpatient Admit Provider: Shanice Ferguson Clinical Impression: Acute deep vein thrombosis (DVT) of femoral vein of left lower extremity, Obesity (BMI 30-39.9), Coronary artery disease involving [place] coronary artery of [place] heart without angina pectoris, Chronic low back pain, History of lumbar spinal fusion, Severe anemia Condition: Stable Coding Level of Care Code ED Home Stereo Equipment Installer for Niko Cole
[2025-05-24 12:37] LABS: Hematocrit 23.2 % (36-47); Hemoglobin 6.90 g/dL (11.27-16.99); Mean Corpuscular HGB Conc 29.7 g/dL (30-55); Mean Corpuscular Hemoglobin 26.4 pg (27-33); Mean Corpuscular Volume 88.9 fl (85-98); Nucleated Red Blood Cells % 0 %; Platelet Count 182 10^3/cmm (157-399); Red Blood Count 2.61 10^6/uL (3.85-5.65); White Blood Count 5.27 10^3/uL (3.29-11.43)
--- NOTE | 2025-05-24 12:49 | ECG_ITS ---
[id number] Test Date: 2025-05-24 Pat Name: Evelin Crisostomo Department: Room: Gender: Female Sexer: : 1950 Requested By: Balwinder Younger Order Number: [id number] Jazmin MD: Marisol Greco M.D. Measurements Intervals [place] Rate: 56 P: 51 CO: 120 QRS: 31 QRSD: 84 T: 12 QT: 400 QTc: 388 Interpretive Statements SINUS BRADYCARDIA LOW QRS VOLTAGE IN PRECORDIAL LEADS [QRS DEFLECTION < 1.0 mV IN CHEST LEADS] Compared to ECG 02/23/2025 13:26:58 Low QRS voltage now present Electronically Signed On 05-24-2025 20:20:11 CDT by Marisol Greco M.D. [email or web address]
[2025-05-24 12:56] LABS: Alanine Aminotransferase 6 U/L (0-33); Albumin Level 2.8 g/dL (3.5-5.2); Alkaline Phosphatase 88 U/L (35-105); Anion Gap 15.4 (5-19); Aspartate Amino Transferase 13 U/L (0-32); Blood Urea Nitrogen 18 mg/dL (8-23); Calcium 8.2 mg/dL (8.5-10.5); Carbon Dioxide 21 mmol/L (22-29); Chloride 108 mmol/L (98-107); Creatinine Clr Calc Pharmacy 45.4039; Globulin 2.7 g/dL (1.3-4.6); Glucose 100 mg/dL (65-115); Osmolality Calculated 292 mOsm/kg (285-295); Potassium 4.4 mmol/L (3.5-5.1); Sodium 140 mmol/L (136-145); Total Protein 5.5 g/dL (6.6-8.7)
[2025-05-24 13:25] LABS: Glucose Urine UA Negative (Normal); Nitrate Urine Negative (Negative); Specific Gravity, Urine 1.020 (1.005-1.030)
[2025-05-24 13:30] LABS: Add Urine Microscopic? YES
--- NOTE | 2025-05-24 13:30 | ECG_ITS ---
[facility] Date: [facility]25-[facility]24 Pat Name: Evelin Crisostomo Department: Room: Gender: Female Channel Specialist: : 1950 Requested By: Balwinder Younger Order Number: [id number] Jazmin MD: Marisol Greco M.D. Measurements Intervals [place] Rate: 50 P: 64 MS: 128 QRS: 30 QRSD: 86 T: 22 QT: 409 QTc: 376 Interpretive Statements SINUS BRADYCARDIA LOW QRS VOLTAGE IN PRECORDIAL LEADS [QRS DEFLECTION < 1.0 mV IN CHEST LEADS] Compared to ECG 05/24/2025 12:49:20 No significant changes Electronically Signed On 05-24-2025 20:19:48 CDT by Marisol Greco M.D. [email or web address]
[2025-05-24 13:45] LABS: Troponin(5th) Baseline 20 ng/L (0-10)
--- NOTE | 2025-05-24 14:04 | P.HP_ITS ---
Providers/Chief Complaint 2 Admitting Physician: Shanice Ferguson MD Primary Care Provider: Georgette Bhatt Chief Complaint: back pain, poss DVT, PE History of Present Illness Evelin Crisostomo is a 75 year old female who presented to the emergency room today from [facility] with a complaint of left lower extremity swelling and pain. She has also had some intermittent chest pain over the weekend, intermittent hypoxemia requiring oxygen which is new for her and intermittent confusion which is also new for her. As part of her workup in the emergency room she had venous Doppler of the left lower extremity and was found to have a partial DVT from the common femoral to the popliteal veins. She had an occlusive DVT at the left posterior tibial vein. Also identified was a hemoglobin of 6.9. She had had surgery earlier this month, and emergent lumbar fusion done at [facility] due to symptomatic spinal compression with change in bowel and bladder function. She had left knee surgery in March of this year as well. History is obtained primarily from the patient's daughter who was at the bedside. She also corroborates what her daughter shares. Episodes of chest pain have been in the left side of the chest radiating to her left arm. It has been associated with some nausea but no vomiting. She has also been short of breath. Not really pleuritic in nature. She has had chest congestion and a cough productive of yellowish sputum with no blood noted. Denies any nasal drainage. No recent fevers. Did receive RSV vaccination last week at the assisted. Has not had any episodes of vomiting. Starting on Saturday she has had some intermittent episodes of confusion with hallucinations, talking to her mother and other family who have . Patient herself does not recall some of this. She was aware that she was not making sense at times. No information about if her low oxygen levels coincided with these episodes. She has required oxygen a few times due to low saturations. She is not normally on oxygen. The swelling in her left lower extremity started on Saturday. It was not present except around her knee after her knee surgery earlier this year. What the daughter noted on Saturday or so was swelling in the ankle and calf. Today the swelling was noted to be worse along with recurrent hypoxemia prompting the visit to the emergency room. Patient had to be convinced to come to the emergency room as she did not want to. No reports of any blood in her stools or black tarry stools. Has not had any hematemesis or coffee-ground emesis. No report of any nosebleeds or bleeding source, large bruises. Has been anemic even prior to her knee surgery in March of this year. Had been put on iron replacement because of anemia. Has never had an EGD or colonoscopy and would not want 1 unless there was a definitive reason to get 1. No known history of cancer. Heparin drip was started in the emergency room. Patient was typed and crossed. Hospitalist for called for admission for continued management. At the present time patient is hungry and thirsty and complaining of significant pain in her back and legs along with her abdomen area. She says she feels full in her belly. She is due to see Dr. Stahl who did her back surgery this coming Saturday. Still has her aiden in place. Review of Systems 2 General: Reports: Other (ROS as per HPI or as otherwise noted here) Medications/Allergies Home Medications ?Medication ?Instructions ?Recorded ?Confirmed ?Last Taken ?Type omeprazole 40 mg capsule,delayed 40 mg PO DAILY 05/24/25 05/24/25 07:00 History release sertraline 100 mg tablet 100 mg PO DAILY 08/27/2105/24/25 07:00 History topiramate 25 mg tablet 25 mg PO BID 08/27/2105/24/25 07:00 History diclofenac sodium 1 % topical gel 4 g topical QID #100 grams 08/28/24 05/24/25 05/24/25 07:00 Rx (Arthritis Pain (diclofenac)) [id number] antigen-AS01E 120 mcg IM ONCE 05/24/2505/20/25 History adjuvant(PF) 120 mcg/0.5 mL IM suspension, kit (Arexvy (PF)) acetaminophen 325 mg tablet 650 mg PO Q6H PRN Mild radha n or 05/24/25 05/24/25 Unknown History (Tylenol) fever albuterol sulfate 2.5 mg/3 mL 2.5 mg continuous nebuli zation Q6H 05/24/25 05/24/25 05/20/25 16:45 History (0.083 %) solution for nebulization PRN Shortness Of B reath Or Wheezing albuterol sulfate 90 mcg/actuation 2 puff inhalation Q 6H PRN 05/24/25 05/24/25 05/19/25 22:00 History aerosol inhaler Shortness Of Breath Or Wheez ing atorvastatin 40 mg tablet 40 mg PO BEDTIME 05/24/2505/23/25 History bisacodyl 10 mg rectal suppository 10 mg NC DAILY PRN Constipation If 05/24/25 05/24/25 Unknown History (Dulcolax (bisacodyl)) cant take po, no results fro m MOM buspirone 10 mg tablet 10 mg PO TID 05/24/2505/24/25 07:00 History cholecalciferol (vitamin D3) 1,250 1,250 unit PO .WEEK LY 05/24/25 05/24/25 05/22/25 History mcg (50,000 unit) capsule famotidine 20 mg tablet 20 mg PO BID 05/24/2505/24/25 07:00 History ferrous sulfate 325 mg (65 mg 325 mg PO EVERY OTHER DA Y 05/24/25 05/24/25 05/24/25 07:00 History iron) tablet (FeroSul) hydrocodone 10 mg-acetaminophen 1 tab PO Q4H PRN moder ate to 05/24/25 05/24/25 05/24/25 11:00 History 325 mg tablet severe pain lactulose 10 gram/15 mL oral 30 ml PO TID PRN Constipa tion 05/24/25 05/24/25 Unknown History solution magnesium oxide 400 mg (241.3 mg 400 mg PO DAILY 05/2405/24/25 05/24/25 07:00 History magnesium) tablet multivitamin with folic acid 400 1 tab PO DAILY 05/24/25 05/24/25 07:00 History mcg tablet (Daily-Chencho (with folic acid)) potassium chloride 20 mEq 20 meq PO BID 05/24/2505/2405/24/25 07:00 History tablet,extended release pregabalin 75 mg capsule 75 mg PO Q8H 05/24/2505/24/25 07:00 History trazodone 100 mg tablet 100 mg PO BEDTIME 05/24/25 0 05/24/25 05/23/25 18:30 History tuberculin PPD 5 tub. unit/0.1 mL 0.1 ml intradermal O NCE 05/24/25 05/24/25 05/18/25 History intradermal injection solution (Tubersol) Allergies Allergy/AdvReac Type Severity Reaction Status Date / Time lisinopril Allergy Unknown Verified 05/24/25 14:23 morphine Allergy ALGY-Anaphy Verified 04/21/25 07:37 laxis oxycodone (From Percocet) Allergy ADR/ALGY-Fl Verified 04/21/25 07:37 ushing prochlorperazine (From Allergy ADR-Itching Verified 04/21/25 07:37 Compazine) propoxyphene (From Allergy ADR-Hyperte Verified 04/21/25 07:37 Darvocet-N) nsion PFSH Acute 2 PFSH: Medical History (Updated 05/24/25 @ 16:43 by Shanice Ferguson MD) Spinal stenosis, lumbar region with neurogenic claudication Coronary artery disease involving torres martinez coronary artery of torres martinez heart without angina pectoris history of stent Anxiety Insomnia due to medical condition Osteoarthritis Obesity (BMI 30-39.9) Gastroesophageal reflux disease without esophagitis Claustrophobia Mixed hyperlipidemia Major depressive disorder with single episode, in full remission Primary hypertension Varus deformity of knee Surgical History (Updated 05/24/25 @ 16:34 by Shanice Ferguson MD) H/O gastric sleeve History of lumbar spinal fusion (05/13/25) Dr Maribeth Butt, done emergently due to changes in bowel and bladder function, L1-L5 fusion History of coronary artery stent placement (2003) [place] History of arthroplasty of right hip (06/13/17) Dr Elias. Right bipolar hip arthroplasty utilizing the [place] Accolade to 132? neck angle hip stem size 5 with a 35 mm neck length and a [place] femoral head size 26 mm with a +4 mm offset and a universal head bipolar component size 46 mm x 26 mm. Status post total left knee replacement not using cement (03/09/25) Date of procedure: March 09, 2025 Diagnosis: Severe degenerative osteoarthritis left knee with varus deformity and lateral laxity Procedure done: Left total knee arthroplasty with Avila guidance Implants: [employer] SBV total knee system with a size 3 triathlon beaded cruciate retaining femur left, a triathlon titanium tibial component size 3 beaded, a triathlon X3 tibial bearing CS insert size 3 x 10 mm and a beaded triathlon titanium asymmetric patella size 32 x 10 mm History of appendectomy Social History (Updated 05/24/25 @ 16:36 by Shanice Ferguson MD) Smoking and tobacco/nicotine status: former use of tobacco/nicotine Alcohol intake: current Alcohol intake frequency: few times a month Alcohol use comment: have baileys and coffee on sundays Substance/Drug Use: never Additional social history: on 05/24/2025 at [facility] post recent emergent back surgery for rehabilitation, lives at home with , daughter nearby Marital status: Number of children: 8 Female Reproductive History: : 6 Para: 6 Vitals/I&O/Wt Last Vital Signs Temp 98.2 F 05/24/25 12:20 Pulse 62 05/24/25 12:20 Resp 16 05/24/25 12:20 BP 109/42 05/24/25 12:20 Pulse Ox 92 05/24/25 12:20 O2 Del Method Room Air 05/24/25 12:20 Weight last 48 hrs Weight 84.368 kg Physical Exam 2 Narrative: Patient is awake and alert, able to provide history to some degree though most of it is obtained from her daughter. Patient answers questions appropriately. Oriented to person, place and mostly to situation though does not recall some of what daughter shares from earlier today. Normocephalic. Pale appearance. Extraocular movements are intact. Mucosa are very pale. Neck is supple. Lungs are clear anteriorly. Scattered wheeze that clears with cough. No accessory muscle use noted. No perioral cyanosis. Cardiovascular exam reveals a regular rate and rhythm. Abdomen is soft, mildly tender in both lower quadrants without rebound or guarding, complaining of needing to urinate currently. Left lower extremity with edema full length of the leg. Healed scar to left knee from surgery in March. Lumbar spine incision has postoperative dressing still in place without any visible blood noted. I did remove the dressing to directly examine surgical site and aiden are in place with no areas of significant hematoma or active bleeding appreciated. Sensation is intact at both feet to touch. 1+ dorsalis pedis pulse bilaterally. Capillary refill is brisk. Speech is clear, face symmetric, able to use both arms and legs though limited from pain and need for careful movements postoperatively. Data 05/24/25 12:32 05/24/25 12:32 Other Labs: Radiology Impressions Chest X-Ray 05/24/25 12:20 IMPRESSION: 1. Negative chest. Venous Duplex LLE 05/24/2025 FINDINGS: Evidence of acute partial deep vein thrombosis in the left common femoral through popliteal veins . Evidence of acute occlusive deep vein thrombosis in the left posterior tibial vein with abnormal flow dynamics. CONCLUSIONS Acute DVT left lower extremtity. Laboratory Results WBC 5.27 10^3/uL (3.29-11.43) 05/24/25 12:32 RBC 2.61 10^6/uL (3.85-5.65) L 05/24/25 12:32 Hgb 6.90 g/dL (11.27-16.99) L 05/24/25 12:32 Hct 23.2 % (36-47) L 05/24/25 12:32 MCV 88.9 fl (85-98) 05/24/25 12:32 MCH 26.4 pg (27-33) L 05/24/25 12:32 MCHC 29.7 g/dL (30-55) L 05/24/25 12:32 RDW 17.7 % (12.1-15.1) H 05/24/25 12:32 Plt Count 182 10^3/cmm (157-399) 05/24/25 12:32 MPV 10.6 fL (7.4-10.4) H 05/24/25 12:32 Neut % (Auto) 67.9 % 05/24/25 12:32 Lymph % (Auto) 16.9 % 05/24/25 12:32 [place] % (Auto) 11.6 % 05/24/25 12:32 Eos % (Auto) 2.1 % 05/24/25 12:32 Baso % (Auto) 0.2 % 05/24/25 12:32 Reticulocyte % (Auto) 2.0 % (0.5-2.0) 05/24/25 12:32 Neut # (Auto) 3.58 10^3/uL (1.8-7.7) 05/24/25 12:32 Lymph # (Auto) 0.9 10^3/uL (0.8-4.8) 05/24/25 12:32 [place] # (Auto) 0.6 10^3/uL (0.2-0.9) 05/24/25 12:32 Eos # (Auto) 0.1 10^3/uL (0.0-0.8) 05/24/25 12:32 Baso # (Auto) 0.0 10^3/uL (0.0-0.1) 05/24/25 12:32 Nucleated RBC % (auto) 0 % 05/24/25 12:32 Nucleated RBCs # 0.0 /100WBC 05/24/25 12:32 PT 14.20 SECONDS (12.1-14.9) 05/24/25 12:32 INR 1.03 (0.8-1.2) 05/24/25 12:32 Sodium 140 mmol/L (136-145) 05/24/25 12:32 Potassium 4.4 mmol/L (3.5-5.1) 05/24/25 12:32 Chloride 108 mmol/L (98-107) H 05/24/25 12:32 Carbon Dioxide 21 mmol/L (22-29) L 05/24/25 12:32 Anion Gap 15.4 (5-19) 05/24/25 12:32 BUN 18 mg/dL (8-23) 05/24/25 12:32 Creatinine 1.0 mg/dL (0.5-0.9) H 05/24/25 12:32 GFR Calculation Not Reportable 05/24/25 12:32 Glucose 100 mg/dL (65-115) 05/24/25 12:32 Calculated Osmolality 292 mOsm/kg (285-295) 05/24/25 12:32 Calcium 8.2 mg/dL (8.5-10.5) L 05/24/25 12:32 Total Bilirubin 0.2 mg/dL (0.15-1.2) 05/24/25 12:32 AST 13 U/L (0-32) 05/24/25 12:32 ALT 6 U/L (0-33) 05/24/25 12:32 Alkaline Phosphatase 88 U/L (35-105) 05/24/25 12:32 Troponin T Baseline 20 ng/L (0-10) H 05/24/25 12:32 Total Protein 5.5 g/dL (6.6-8.7) L 05/24/25 12:32 Albumin 2.8 g/dL (3.5-5.2) L 05/24/25 12:32 Globulin 2.7 g/dL (1.3-4.6) 05/24/25 12:32 Urine Color Yellow (Yellow) 05/24/25 13:18 Urine Appearance Clear (CLEAR) 05/24/25 13:18 Urine pH 7.5 (5-7) 05/24/25 13:18 Ur Specific [place] 1.020 (1.005-1.030) 05/24/25 13:18 Urine Protein Negative (Negative) 05/24/25 13:18 Urine Glucose (UA) Negative (Normal) 05/24/25 13:18 Urine Ketones Negative (Negative) 05/24/25 13:18 Urine Blood Negative (Negative) 05/24/25 13:18 Urine Nitrate Negative (Negative) 05/24/25 13:18 Urine Bilirubin Negative (Negative) 05/24/25 13:18 Urine Urobilinogen 1.0 mg/dL (Negative) 05/24/25 13:18 Ur Leukocyte Esterase Trace (Negative) A 05/24/25 13:18 Urine RBC 0-2 /hpf (0-2) 05/24/25 13:18 Urine WBC 0-5 /hpf (0-5) 05/24/25 13:18 Ur Squamous Epith Cells 0-5 /hpf (0-5) 05/24/25 13:18 Amorphous Sediment Not Reportable 05/24/25 13:18 Urine Bacteria None seen /hpf (NONE) 05/24/25 13:18 Hyaline Casts 1.21 /lpf 05/24/25 13:18 Blood Type O Positive 05/24/25 12:54 Rho(D) Type Rh positive 05/24/25 12:54 Antibody Screen Negative 05/24/25 12:54 Other data: Laboratory Tests 08/27/21 02/22/25 02/23/25 13:00 15:23 11:30 Hgb 12.4 11.50 11.00 L 03/09/25 03/10/25 05/13/25 05/24/25 07:10 03:46 12:32 Hgb 10.70 L KNEE SURGERY THIS DATE 8.30 L BACK SURGERY THIS DATE 6.90 L Laboratory Tests 05/24/25 12:32 Reticulocyte % (Auto) 2.0 PT 14.20 Iron 15 L TIBC 183 % Saturation 8.1 L Unsat Iron Binding 168 Vitamin B12 555 Folate 15.1 A&P Assessment and plan 1. Acute deep vein thrombosis (DVT) of femoral vein of left lower extremity: Acute partial deep vein thrombosis extending from left common femoral to popliteal veins. There is an occlusive DVT in the left posterior tibial vein with abnormal flow dynamics. Swelling began 3 days prior to admission. Is postoperative from emergent spinal fusion May 13. Also had left knee surgery in March of this year but did not swelling to this degree after that surgery. - Initiate anticoagulation with heparin drip given recent surgery to the lumbar spine - Reviewed with patient and daughter risk of bleeding with treatment versus risk of pulmonary embolism up to and including possibility of without treatment. - Elevate affected extremity - For now we will hold physical therapy until she is had anticoagulation for at least 24-48 - Checking CTA of the chest given chest pain and hypoxemia to help with overall management in terms of duration of treatment and needs for follow-up - Monitor left lower extremity for need to consider alternative management though currently with brisk capillary refill 2. Severe anemia: With iron deficiency. Hemoglobin earlier this year prior to left knee surgery was 11. Had been started on iron replacement in the outpatient setting as early as December or January. No reports of any bright red blood or black tarry stools. Did have dark in stools after taking an increased dose of iron therapy in the pre and postoperative timeframe from her left knee surgery in March. Has not had any hematemesis, coffee-ground emesis, nosebleeds, bleeding sores. Has been symptomatic with hypoxemia, chest pain, shortness of breath, intermittent confusion. - Transfuse 1 unit of packed red blood cells currently, discussed risks and benefits of transfusion with patient and daughter both of whom were given an opportunity to ask questions. Has been typed and screened and is O positive. - Check iron level; given weekly drinks and recent confusion will also check b12 and folate - Serial hemoglobin during initiation of heparin drip with daily CBC - Increase iron therapy to 3 times a day - With increase in iron therapy will schedule bowel regimen - Hemoccult of stool has been ordered - CT without contrast of lumbar spine to evaluate for any bleeding at recent surgical site, none seen externally - Will need outpatient follow-up of anemia 3. History of lumbar spinal fusion: Surgery was done on May 13 at [facility] emergently due to changes in bowel and bladder function and significant spinal cord compression. Included L1-L5 fusion with tea placement by Dr. Zackary Stahl. Still has aiden in place. Not allowed to bend, must wear brace when sitting or standing. - Left message at Dr Stahl office at [facility] to contact me - Have requested records from [facility] - Brace ordered for sit and stand - Keeping aiden in place for now, skin not over them, no bleeding seen - Will need to clarify with Dr. Stahl when able to talk with him postoperative plans as was originally scheduled for follow-up in 2 days (Saturday) with staple removal - Given severe anemia, recent back surgery and need to antioagulate, checking CT with contrast of lumbar spine area - Serial neuro examinations - Continue prescribed pain regimen of hydrocodone/acetaminophen, lyrica 4. Shortness of breath at rest: Has had shortness of breath, intermittent hypoxemia requiring oxygen and chest congestion with productive cough in the last couple of days. Is a remote smoker so could be acute bronchitis. Not known to have COPD. Was prescribed nebulizer treatments at [facility] after admission. Normal white count and differential would tend to favor viral process. Seasonal allergies are another consideration. No blood has been noted in yellowish colored sputum. - Oxygen therapy if needed - Close monitoring for worsening respiratory status - Breathing treatments if needed - Will add as needed guaifenesin - Monitor need to add more focused bronchitis treatment 5. Coronary artery disease involving torres martinez coronary artery of torres martinez heart without angina pectoris: History of coronary artery disease with prior cardiac stent in 2003. Has had 2 post stent angioplasties that were unremarkable but last one was quite a few years ago. Had previously been on beta-blockade but it was stopped during hospital stay earlier this month due to bradycardia. Is not normally on aspirin therapy. Normally on statin therapy. Has had some chest pain this past weekend intermittently associated with left arm pain, shortness of breath and nausea. Baseline troponin elevated at 20 but 2-hour troponin essentially unchanged with a 2-hour delta of 1.24. Chest pain could be secondary to a type II process given current hemoglobin, secondary to pulmonary embolism/pleuritic in nature or could be indicative of cardiac ischemia for other reasons. At the time of my evaluation chest pain-free. EKG x 2 with sinus bradycardia but no acute ST segment changes noted. - Continue serial cardiac enzymes - Telemetry monitoring - EKG as needed recurrent chest pain 6. Perioperative cardiac complication: During recent emergent back surgery had tacky bradycardia episode with heart rates ranging from 40s to 180s necessitating pause on surgery and placement of temporary pacemaker. Was on beta-blockade and chlorthalidone prior both of which were stopped during that hospital stay. Does have a known history of coronary artery disease as indicated. - Aware, off beta blockade with HR in 50s at times - Telemetry monitoring 7. Status post total left knee replacement not using cement: This was performed on March 09 of this [address] Dr. Vaughan. Took aspirin for DVT prophylaxis as prescribed postoperatively. Has not had swelling or degree of pain in the left lower extremity prior to last week beyond some expected swelling at the knee. Has been using topical NSAID therapy in addition to postoperative pain management for back surgery. - Holding diclofenac topical gel currently due to anemia at least until we can rule out GI blood losses 8. Primary hypertension: Longstanding diagnosis, previously on chlorthalidone, metoprolol succinate and amlodipine, all of which appear to have been held upon discharge from [facility] based on currently available history. Current blood pressures within normal range. - Monitor blood pressures for need to resume prior medications 9. Mixed hyperlipidemia: Chronically on statin therapy, usually prescribed simvastatin but has been on atorvastatin [facility] - Continue atorvastatin as it is formulary 10. Gastroesophageal reflux disease without esophagitis: Chronically on both PPI and H2 betito. No indications of GI source of blood loss based on available information from patient but has been on topical NSAID therapy and was on a month of aspirin therapy after knee surgery in March. - Continue PPI at twice daily dosing currently - Currently holding famotidine 11. Major depressive disorder with single episode, in full remission: Chronically on sertraline along with BuSpar for anxiety - Continue home sertraline and BuSpar dosing 12. Insomnia due to medical condition: Chronically on trazodone with sleep - Given recent confusion decreasing dose to half usual and changing to as needed rather than scheduled Plan: Constipation, normal pattern every few days, will add bowel regimen Chronically on Topamax, need to clarify related diagnosis Declines consideration for flu shot, up-to-date on Pneumovax, had RSV vaccine last week Inpatient admission Will need to continue efforts to communicate with Dr. Stahl who did her surgery on May 13, aiden are in place and her back and plan had been to see him on Saturday for postoperative follow-up in [facility] VTE prophylaxis: not indicated, has DVT at time of admission, on heparin drip presently GI Prophylaxis: PPI Antibiotics: none Pending studies: CTA chest, CT with contrast lumbar spine, Telemetry: Ordered secondary to degree of anemia, left lower extremity DVT, intermittent hypoxemia and reported tacky bradycardia event perioperatively a couple of weeks ago at [facility] [place]: not currently indicated Line(s): peripheral IVs Disposition plan: Currently anticipate disposition back to [facility] for continued rehabilitation in the setting of new findings. Should she return home arrangements need to be made for outpatient follow-up of anemia, management of anticoagulation, therapy options and the like. Code Status: Full Code Supportive care otherwise Findings, concerns and plans were discussed with patient and they were given an opportunity to ask questions PDMP PDMP Reviewed: Last Reviewed 05/24/25 16:51 by Shanice Ferguson MD Attestations 2 Medical Necessity Statement*: Anticipated stay greater than two midnights in this patient who had emergent back surgery earlier this month and has been found to have DVT in the left lower extremity along with severe anemia that is symptomatic. She requires both transfusion of blood as well as initiation of anticoagulation and close monitoring given the high risk of management in this setting. In addition she has had chest pain and has a known history of coronary artery disease with prior cardiac stent placement. During her recent surgery she had arrhythmia requiring temporary pacemaker placement. Additionally she has been requiring oxygen in the past couple of days which is new for her. High risk for continued decline up to and including the possibility of without management in the acute care setting. At risk for bleeding from recent surgical site with initiation of anticoagulation but anticoagulation currently necessary for DVT and possibly PE. Plans are as noted above. Diagnoses Acute deep vein thrombosis (DVT) of femoral vein of left lower extremity I82.412 Affected thrombotic vein of extremity: femoral Severe anemia D64.9 History of lumbar spinal fusion Z98.1 Shortness of breath at rest R06.02 Coronary artery disease involving torres martinez coronary artery of torres martinez heart without angina pectoris I25.10 Associated angina: without angina Coronary Disease-Associated Artery/Lesion type: torres martinez artery [place] vs. 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
[2025-05-24] MEDS: heparin 5,000 unit/mL INJ 1 mL IVP (14:26)
[2025-05-24] MEDS: heparin drip 25,000 UNIT/500 ML PREMIX 24 UNIT IV (14:31)
[2025-05-24 14:46] LABS: INR 1.03 (0.8-1.2); Prothrombin Time 14.20 SECONDS (12.1-14.9)
[2025-05-24 14:54] LABS: Iron 15 ug/dL (37-145); Total Iron Binding Capacity 183 mcg/dl; Unsaturated Iron Binding 168 ug/dL (112-347)
[2025-05-24 15:09] LABS: Vitamin B12 555 pg/mL (232-1245)
[2025-05-24 15:13] LABS: Troponin 5 2HR 21.24 ng/L (0-10); Troponin 5 2HR Delta 1.24 ABS# (0-10)
--- NOTE | 2025-05-24 15:17 | ECG_ITS ---
[facility] Test Date: 2025-05-24 Pat Name: Evelin Crisostomo Department: Room: 255 Gender: Female [employer] Consultant: : 1950 Requested By: Balwinder Younger Order Number: [id number] Jazmin MD: Marisol Greco M.D. Measurements Intervals [place] Rate: 69 P: 69 MI: 141 QRS: 45 QRSD: 96 T: 39 QT: 377 QTc: 405 Interpretive Statements SINUS RHYTHM Compared to ECG 05/24/2025 13:30:53 Sinus bradycardia no longer present Electronically Signed On 05-24-2025 20:25:05 CDT by Marisol Greco M.D. [email or web address] [id number]
--- NOTE | 2025-05-24 15:57 | CTR_ITS ---
PROCEDURE INFORMATION: Exam: CT Lumbar Spine With Contrast Exam date and time: 05/24/2025 4:00 PM Age: 75 years old Clinical indication: Low back pain; Prior surgery; Surgery date: 6+ months; Surgery type: Lumbar hip; Additional info: Surgery 05/13 emergent, hgb 6, has dvt, have to anticoagulate, has decrease in bowel and bladder TECHNIQUE: Imaging protocol: Computed tomography of the lumbar spine with contrast. Radiation optimization: All CT scans at this facility use at least one of these dose optimization techniques: automated exposure control; mA and/or kV adjustment per patient size (includes targeted exams where dose is matched to clinical indication); or iterative reconstruction. Contrast material: OMNI 350; Contrast volume: 100 ml; Contrast route: INTRAVENOUS (IV); COMPARISON: CR XR lumbar spine min 4V [id number] 06/18/2023 11:51 AM RADIATION DOSE METRICS: Total DLP (mGy-cm): 809.5 FINDINGS: Bones/joints: No acute fracture. Bilateral laminectomy changes of L2-L4. Posterior fusion hardware with bilateral pedicular screws spanning L2-L5. Surgical hardware appears intact. No spondylolisthesis. L1-L2: No significant disc bulge or herniation. No significant spinal canal stenosis. No significant neural foraminal narrowing. L2-L3: No significant disc bulge or herniation. No significant spinal canal stenosis. No significant neural foraminal narrowing. L3-L4: Mild posterior disc bulge. No significant spinal canal stenosis. Mild bilateral neural foraminal narrowing. L4-L5: No significant disc bulge or herniation. No significant spinal canal stenosis. No significant neural foraminal narrowing. L5-S1: No significant disc bulge or herniation. No significant spinal canal stenosis. No significant neural foraminal narrowing. Kidneys and ureters: Bilateral renal subcentimeter presumed simple cysts. Mildly atrophic left kidney. Soft tissues: A 2.5 x 3.3 x 12.6 cm subcutaneous fluid collection is present in the surgical bed underlying the skin aiden. CT/CT lumbar spine w con [id number] IMPRESSION: 1. No acute fracture of the lumbar spine. 2. Postsurgical changes of posterior lumbar spine fusion spanning L2-L5, with intact surgical hardware. 3. A 2.5 x 3.3 x 12.6 cm subcutaneous fluid collection is present in the surgical bed underlying the skin aiden, compatible with seroma, hematoma, or abscess.
--- NOTE | 2025-05-24 15:57 | CTR_ITS ---
PROCEDURE INFORMATION: Exam: CTA Chest With Contrast Exam date and time: 05/24/2025 4:00 PM Age: 75 years old Clinical indication: Shortness of breath; Additional info: Known dvt lle, chest pain and SOB, low oxygen levels, treatment and management planning TECHNIQUE: Imaging protocol: Computed tomographic angiography of the chest with contrast. Exam focused on the arteries. 3D rendering (Not supervised by radiologist): MIP and/or 3D reconstructed images were created by the technologist. Radiation optimization: All CT scans at this facility use at least one of these dose optimization techniques: automated exposure control; mA and/or kV adjustment per patient size (includes targeted exams where dose is matched to clinical indication); or iterative reconstruction. Contrast material: OMNI 350; Contrast volume: 100 ml; Contrast route: INTRAVENOUS (IV); COMPARISON: CT angio chest PE protcl [id number] 08/27/2021 4:42 PM RADIATION DOSE METRICS: Total DLP (mGy-cm): 308.5 FINDINGS: Tubes, catheters and devices: None. Pulmonary arteries: Intraluminal filling defects within an anterior segmental left upper lobe pulmonary artery, as well as multiple right lower lobe segmental branches, compatible with pulmonary emboli. Aorta: No aortic aneurysm. No aortic dissection. Thyroid: Unremarkable. Trachea: Patent trachea and central airways. Lungs: No consolidation. Several scattered subcentimeter ground-glass opacities in the left upper lobe. Linear bands of density in the left lung base, compatible with atelectasis or scarring. Mild right lung base atelectasis. Pleural spaces: No pneumothorax. No pleural effusion. Heart: No cardiomegaly. No pericardial effusion. Heart RV/LV ratio: RV to LV ratio is 1.1. Esophagus: Small hiatal hernia. Mediastinal space: Unremarkable. Lymph nodes: No mediastinal, hilar, or axillary lymphadenopathy. Stomach: Postsurgical changes of sleeve gastrectomy. Bones/joints: Mild inferior endplate compression deformities of T8 and T10 vertebral bodies with approximately 15% height loss, new compared to 08/27/2021. Soft tissues: Unremarkable. CT/CT angio chest PE protcl [id number] IMPRESSION: 1. Several segmental pulmonary emboli in the right lower lobe and left upper lobe. 2. RV to LV ratio of 1.1 is suggestive of right heart strain. 3. Several scattered subcentimeter ground-glass opacities in the left upper lobe, nonspecific and may represent infectious or inflammatory pneumonitis. 4. Age-indeterminate mild inferior endplate compression deformities of T8 and T10 vertebral bodies, new compared to 08/27/2021. COMMENTS: THIS REPORT CONTAINS FINDINGS THAT MAY BE CRITICAL TO PATIENT CARE. The exam findings were verbally communicated by me to SAHRA LEONARDO via telephone conference at 5:50 PM CDT on 05/24/2025. The findings were acknowledged and understood.
[2025-05-24] MEDS: iohexol 350 mg/mL 500 mL Btl (per mL) IV (16:06)
[2025-05-24] MEDS: ferrous sulfate EC 325 mg Tablet PO (17:47)
[2025-05-24] MEDS: HYDROcodone-acetaminophen 10-325 mg Tablet 1 TAB PO (18:16)
--- NOTE | 2025-05-24 19:17 | ECG_ITS ---
[facility] Test Date: 2025-05-24 Pat Name: Evelin Crisostomo Department: Room: 255 Gender: Female Environmental Protection Officer: : 1950 Requested By: Balwinder Younger Order Number: [id number] Wu MD: Peter Toribio M.D. Measurements Intervals [place] Rate: 58 P: 64 AR: 138 QRS: 43 QRSD: 98 T: 10 QT: 400 QTc: 394 Interpretive Statements SINUS BRADYCARDIA LOW QRS VOLTAGE IN PRECORDIAL LEADS [QRS DEFLECTION < 1.0 mV IN CHEST LEADS] Compared to ECG 05/24/2025 17:12:56 NO SIGNIFICANT CHANGE Electronically Signed On 05-26-2025 21:40:17 CDT by Peter Toribio M.D. [id number] [id number]
[2025-05-24 19:29] LABS: Hematocrit 23.3 % (36-47); Hemoglobin 6.90 g/dL (11.27-16.99)
[2025-05-24 19:44] LABS: Troponin 5 6HR 24.47 ng/L (0-10); Troponin 5 6HR Delta 4.47 ng/L (0-12)
--- NOTE | 2025-05-24 21:04 | PC.NURSE ---
Patient arrived at 2049 to ICU 4. Complaints of pain in back due to surgery. Heparin running at 24ml/hr. NS bolus running due to hypotension. Provider at bedside said patient has history of intermittent hypotension. Blood ready at blood bank.
--- NOTE | 2025-05-24 21:08 | PC.NURSE ---
Patient transferred to ICU room 4. Report on patient given to Brigida GA. Patient transferred with no complications. All of belongings transferred with patient. Patient's daughter notified of transfer and all questions were answered.
[2025-05-24 21:43] LABS: Partial Thromboplastin Time 190.7 SECONDS (23.9-36.7)
--- NOTE | 2025-05-24 22:01 | PC.NURSE ---
Patient had critical PTT. Provider notified and gave orders to stop heparin drip for 2 hours and redraw PTT. Heparin paused and lab order placed.
[2025-05-25] VITALS (60 sets, daily range): BP systolic 72–147; BP diastolic 36–78; PULSE 46–76; RESP 11–22; TEMP 36.4–36.9; O2SAT 92–98
[2025-05-25 01:13] LABS: Hematocrit 21.8 % (36-47); Hemoglobin 6.60 g/dL (11.27-16.99)
[2025-05-25 01:27] LABS: Partial Thromboplastin Time 38.8 SECONDS (23.9-36.7)
--- NOTE | 2025-05-25 01:46 | XRR_ITS ---
PROCEDURE INFORMATION: Exam: XR Chest Exam date and time: 05/25/2025 1:49 AM Age: 75 years old Clinical indication: Condition or disease; Other: Fluid overload TECHNIQUE: Imaging protocol: Radiologic exam of the chest. Views: 1 view. COMPARISON: CT angio chest PE protcl [id number] 05/24/2025 4:00 PM FINDINGS: Lungs: Mild central pulmonary arterial prominence, which may correspond to noted history of acute pulmonary emboli and suggestive pulmonary hypertension. Pleural spaces: Unremarkable. No pleural effusion. No pneumothorax. Heart/Mediastinum: Unremarkable. No cardiomegaly. Vasculature: Atherosclerotic changes of the aorta are noted. Bones/joints: Unremarkable. XR/XR chest 1V portable [id number] IMPRESSION: 1. Mild central pulmonary arterial prominence, which may correspond to noted history of acute pulmonary emboli and suggestive pulmonary hypertension. 2. Otherwise, no acute pulmonary process.
--- NOTE | 2025-05-25 02:22 | PC.NURSE ---
Patient labs came back and hgb and hct after administration of 1 unit PRBC were lower than before administration. Provider notified of HCT, HGB, and PTT, and gave verbal orders for stat chest x-ray, desouza catheter to be placed, 40mg IVP Furosemide now, 1 unit PRBC, 20mg IVP Furosemide to be administered during blood transfusion, and not to restart heparin drip at this time. Patient family requesting transfer, provider given information about patients surgery that was performed at [facility]. Patient accepted back to [facility]. Family at bedside.
--- NOTE | 2025-05-25 02:25 | PC.NURSE ---
Spoke with Dr. Crook, stated pt had been accepted at [facility], but awaiting bed assignment. Also approved orders for more blood but to wait to transfuse following labs after second unit transfused. Family (daughter, daughter in law, and son) at bedside, made aware of same and were agreeable. Requested when bed was available that patient be transferred by air if possible but made aware of impending weather and that it may not be possible to fly and they were agreeable.
[2025-05-25] MEDS: FUROsemide 10 mg/mL SDV 4mL 40 MG IVP (02:35)
[2025-05-25] MEDS: FUROsemide 10 mg/mL SDV 2mL 20 MG IVP (03:18)
[2025-05-25] MEDS: HYDROcodone-acetaminophen 10-325 mg Tablet 1 TAB PO (04:15)
--- NOTE | 2025-05-25 06:00 | USCV_ITS ---
Evelin Crisostomo Age: 75 Gender: F : 1950 Exam Date: 05/25/2025 10:08 Ordering Phys: Shanice Ferguson MD Technologist: TENNILLE Exam Location: [facility] Indication: Bilat PEs, CP BP: 131 / 78 HR: 46 Rhythm: Sinus Technical Quality: Adequate MEASUREMENTS (Male / Female) Normal Values 2D ECHO LV Diastolic Diameter PLAX 4.5 cm 4.2 - 5.9 / 3.9 - 5.3 cm IVS Diastolic Thickness 0.9 cm 0.6 - 1.0 / 0.6 - 0.9 cm IVS Systolic Thickness 1.5 cm LVPW Diastolic Thickness 1.4 cm 0.6 - 1.0 / 0.6 - 0.9 cm LVPW Systolic Thickness 1.7 cm LVOT Diameter 1.9 cm LV Ejection Fraction 2D Teich 54.0 % LV Ejection Fraction MOD 4C 58.4 % LV Ejection Fraction MOD 2C 63.0 % LV Ejection Fraction 2C AL 63.8 % LA Diameter 4.0 cm RA Systolic Volume 4C AL 25.6 ml RA Systolic Volume 4C MOD 26.7 ml LA Sys Volume AL 57.0 cm cubed LA Sys Volume Index AL 29.8 cm cubed/m squared Aorta at Sinotubular Diameter 2.7 cm IVC Diameter 2.2 cm M-MODE LA Ao Ratio MM 1.5 AV Cusp Separation MM 1.0 cm DOPPLER AV Peak Velocity 146.0 cm/s LVOT Peak Velocity 81.0 cm/s AV Area Cont Eq vti 1.7 cm squared AV Area Cont Eq pk 1.6 cm squared MV Peak Velocity 128.0 cm/s MV Area PHT 6.7 cm squared Mitral E to A Ratio 1.0 TR Peak Velocity 207.0 cm/s TR Peak Gradient 17.1 mmHg TV Peak E Velocity 93.0 cm/s PV Peak Velocity 81.0 cm/s FINDINGS Left Ventricle Normal left ventricular size, systolic function and wall thickness, with no regional wall motion abnormalities. Left ventricular ejection fraction is estimated at 58%. Normal diastolic function. Right Ventricle Normal right ventricular size. Mildly decreased right ventricular systolic function. Normal right ventricular systolic pressure. Right Atrium Normal right atrial size. Left Atrium Normal left atrial size. Mitral Valve Structurally normal mitral valve. No mitral valve stenosis. Mild-moderate mitral valve regurgitation. Aortic Valve Structurally normal trileaflet aortic valve. No aortic valve stenosis. No aortic valve regurgitation. Tricuspid Valve [id number]-[id number] tricuspid valve regurgitation. Pulmonic Valve Structurally normal pulmonic valve. No pulmonary valve stenosis. No pulmonary valve regurgitation. Pericardium No pericardial effusion. Aorta Normal size aortic root and proximal ascending aorta. IVC Inferior vena cava not visualized. CONCLUSIONS 1. Normal biventricular size and normal LV EF 58%. 2. Mild hypokinesis of the right ventricle 3. Mild to moderate mitral valve regurgitation 4. Mild to moderate tricuspid valve regurgitation 5. Normal Pulmonary pressure by doppler estimate. Peter Toribio MD, FACC (Electronically Signed) Final Date: 25 May 2025 11:03 S
[2025-05-25 06:35] LABS: Hematocrit 28.4 % (36-47); Mean Corpuscular HGB Conc 31.0 g/dL (30-55); Mean Corpuscular Hemoglobin 27.2 pg (27-33); Mean Corpuscular Volume 87.7 fl (85-98); Nucleated Red Blood Cells % 0 %; Platelet Count 173 10^3/cmm (157-399); Red Blood Count 3.24 10^6/uL (3.85-5.65); White Blood Count 5.16 10^3/uL (3.29-11.43)
[2025-05-25 06:44] LABS: Hemoglobin 8.80 g/dL (11.27-16.99)
[2025-05-25 06:51] LABS: Anion Gap 13.8 (5-19); Blood Urea Nitrogen 13 mg/dL (8-23); Calcium 8.4 mg/dL (8.5-10.5); Carbon Dioxide 22 mmol/L (22-29); Chloride 108 mmol/L (98-107); Creatinine Clr Calc Pharmacy 49.9988; Glucose 90 mg/dL (65-115); Osmolality Calculated 290 mOsm/kg (285-295); Potassium 3.8 mmol/L (3.5-5.1); Sodium 140 mmol/L (136-145)
[2025-05-25] MEDS: multivitamin therapeutic Tablet 1 TAB PO (08:05)
[2025-05-25] MEDS: ferrous sulfate EC 325 mg Tablet PO ×2 (08:05→12:20)
[2025-05-25 08:53] LABS: Hematocrit 29.7 % (36-47); Hemoglobin 9.20 g/dL (11.27-16.99)
--- NOTE | 2025-05-25 09:00 | CT_ITS ---
WS: [id number] CT ABDOMEN PELVIS TECHNIQUE: Noncontrast CT of the abdomen and pelvis with coronal and sagittal reformatted images. CLINICAL INFORMATION: retroperiteneal bleed COMPARISON: None. DLP: 799.[address] scans at [facility] use at least one of these dose optimization techniques: automated exposure control; mA and/or kV adjustment per patient size (includes targeted exams where dose is matched to clinical indication); or iterative reconstruction. FINDINGS: Recent postoperative changes pedicle screw fixation L2-L5 with interconnecting tea. Wide decompressive laminectomy defects with expected postoperative changes. Small amount of expected postoperative fluid/seroma along the incision tract. No evidence of retroperitoneal hemorrhage. Carroll catheter. Sigmoid diverticulosis. Mild sigmoid constipation. Subsegmental atelectasis in the LEFT greater than RIGHT lower lobes. Normal noncontrast liver and spleen. Small esophageal hiatal hernia. Adrenal glands are normal. Atrophic LEFT kidney. No hydronephrosis. Tiny fat-containing umbilical hernia. Splenic artery calcification. Adrenal glands are normal. Normal caliber abdominal aorta. Aortic calcification. RIGHT ARABELLA. CT/CT abdomen pelvis wo con [id number] IMPRESSION: 1. No evidence of retroperitoneal hemorrhage 2. Subsegmental atelectasis in the LEFT greater than RIGHT lung bases. Trace p leural fluid RIGHT lower lobe 3. Recent postoperative changes lumbar spine 4. Small esophageal hiatal hernia. 5. Carroll catheter
[2025-05-25 09:13] LABS: Lactic Sepsis W/Reflex 0.7 mmol/L (0.5-2.2)
--- NOTE | 2025-05-25 09:20 | PHA.VACGOAL ---
Vancomycin Goal - Goal Vancomycin Goal:: other Vancomycin Indication:: Other - Therapy Current therapy:: Pip/Tazo Day of therpy:: Day []of [] . Actual body weight (kg): 183 lb - Data Labs: WBC 5.16 10^3/uL (3.29-11.43) 05/25/25 06:28 RBC 3.24 10^6/uL (3.85-5.65) L 05/25/25 06:28 Hgb 9.20 g/dL (11.27-16.99) L 05/25/25 08:47 Hct 29.7 % (36-47) L 05/25/25 08:47 MCV 87.7 fl (85-98) 05/25/25 06:28 MCH 27.2 pg (27-33) 05/25/25 06:28 MCHC 31.0 g/dL (30-55) 05/25/25 06:28 RDW 16.0 % (12.1-15.1) H 05/25/25 06:28 Sodium 140 mmol/L (136-145) 05/25/25 06:28 Potassium 3.8 mmol/L (3.5-5.1) 05/25/25 06:28 Chloride 108 mmol/L (98-107) H 05/25/25 06:28 Carbon Dioxide 22 mmol/L (22-29) 05/25/25 06:28 Anion Gap 13.8 (5-19) 05/25/25 06:28 BUN 13 mg/dL (8-23) 05/25/25 06:28 Creatinine 0.9 mg/dL (0.5-0.9) 05/25/25 06:28 GFR Calculation Not Reportable 05/25/25 06:28 Treatment plan:: new consult Regimen:: ENTERED ORDER FOR 2000 MG LOADING DOSE FOLLOWED BY 500 MG Q12H. DX CURRENTLY UNKNOWN; THERE IS NOT YET A NOTE TO INDICATE. HOWEVER, BASED ON PATIENT'S LOCATION IN ICU, GAVE INCREASED LOADING DOSE PER PROTOCOL. PATIENT IS OF ADVANCED AGE AND UNKNOWN FLUID STATUS. WILL CONSIDER OBTAINING RANDOM LEVEL PRIOR TO STEADY STATE TO ENSURE PATIENT IS NOT SUPRATHERAPEUTIC. Follow up:: WILL CONTINUE TO MONITOR DAILY AND OBTAIN TROUGH PRIOR TO 4TH DOSE.
[2025-05-25 09:32] LABS: Procalcitonin 0.09 ng/mL (0-0.5)
[2025-05-25] MEDS: albumin 50 G/200 ML BAG 60 G IV (09:42)
[2025-05-25] MEDS: piperacillin-tazobactam 3.375 GM in sodium chloride 0.9% (plus) 50 ML IV (09:44)
--- NOTE | 2025-05-25 12:03 | P.PN_ITS ---
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, she is gem rt to person, to place, not to time, she follows commands, she is complaining of abdominal pain, bilateral flank pain, she had a large bowel movement she is hypotensive MAP is around 60, she is on room air, no tachycardia - Discussed doing a stat CT abdomen pelv is to rule out retroperitoneal bleed as she was quite anemic without a good source, denies any bloody black stools - I have also ordered 500 mL of normal s april, she was started on albumin therapy, midodrine therapy - In addition order placed for Levophed for shock - Discussed with patient that she she is currently in shock, she has good DP PT pulses, no significant mottling, the shock could be multifactorial right heart strain from her pulmonary embolism, from acute anemia, source could be acute GI bleed versus retroperitoneal bleed, other causes could be septic shock, given her CT chest findings she has a left upper lobe infiltrate, could be pneumonia although she is on room air, her CRP is 39, Pro-Adin 0.09 I started her on broad- spectrum antibiotic therapy, vancomycin, Zosyn - Other potential etiologies could be yo ur lower lumbar spine, in the soft tissue she has a 2.5 x 3.3 x 12.6 cm fluid collection in the surgical bed underlying her skin staple after her lumbar back surgery for cauda equina syndrome, this could represent a seroma or hematoma or an abscess - Nonetheless I have started her on IV a ntibiotics - Discussed with her that I we will reac h out to her neurosurgeon at [facility] - She will need to go to the ICU due to her persistent shock - I have ordered a stat CT abdomen pelvi s rule out retroperitoneal bleed - Will reach out to [facility] as she was initially going to go to the medical floors, however now she needs to go to the ICU given her persistent hypotension - For her pulmonary embolism, and left l ower extremity DVT, her heparin drip has been held early this morning due to elevated PTT, and was not resumed due to concern for further bleeding although she denies any bloody or black stools - Her hemoglobin has improved to 9.2 - Discussed also the possibility of IVC filter placement, depending on how long she is here at [facility], - Certainly this is a difficult situatio n as we have a couple source of bleeding such as retroperitoneal bleed, possible GI bleed with her acute anemia, in addition to potentially bleeding into her surgical site given her CT scan findings in the lumbar spine - Discussed the risk and benefits of tri al of anticoagulant therapy, IV heparin, with her acute anemia, and findings as above, - Family members are at bedside, underst and the complexity of the situation -Patient was taken to his CAT scan, CT s can abdomen pelvis does not show any evidence of retroperitoneal bleed - I discussed the case with [facility] , they are agreeable to take patient to their ICU - Patient was seen again in the ICU, she is not on any pressors she remains normotensive, on albumin, midodrine alert to person, to place, to time, she does complain of abdominal pain and flank pain although improved - She did have a large bowel movement ea prakash this morning - Discussed with patient and family risk and benefits of anticoagulant therapy, she voiced understanding, all questions answered, agreed to proceed will resume heparin drip, decrease rate of infusion, no bolus, watch hemoglobin - Spoke to patient's surgeon at [facility], who recommended transfer to [facility] with consultation by neurosurgery and MRI lumbar spine with and without contrast - Currently echocardiogram being complet ed EF 58%, mild right ventricular hypokinesia - Her blood pressures have improved, now normotensive, on room air, pulse is 49, - Unfortunately ER cannot fly given the weather - Will arrange ground transportation Vitals/I&O/Wt Last Vital Signs Temp 98.4 F 05/25/25 06:07 Pulse 50 L 05/25/25 10:03 Resp 14 05/25/25 10:00 BP 131/78 05/25/25 10:00 Pulse Ox 96 05/25/25 10:03 O2 Del Method Room Air 05/25/25 10:03 05/24/25 05/25/25 05/25/25 22:59 06:59 14:59 Intake Total 428 / 428 1630 / 2058 0 / 0 Output Total 300 / 300 2100 / 2400 Balance 128 / 128 -470 / -342 0 / 0 Weight last 48 hrs Weight 83.007 kg Weight 82.01 kg Weight 84.368 kg Physical Exam 2 Const: COMMON NORMALS: no acute distress and patient oriented x3 Resp: COMMON NORMALS: normal respiratory effort, No retractions, No use of accessory muscles and clear to auscultation bilaterally AUSCULTATION: clear to auscultation bilaterally Cardio: COMMON NORMALS: regular rate, regular rhythm, S1 normal heart sound present and S2 normal heart sound present RATE: regular rate RHYTHM: r egular rhythm HEART SOUNDS: S1 normal heart sound present and S2 normal heart sound present GI: COMMON NORMALS: Normal to inspection, nondistended, normoactive bowel sounds present Extremity: COMMON NORMALS: no pedal edema Neuro: COMMON NORMALS: patient oriented x3, CN's II-XII intact bilaterally and moves all extremities Psych: COMMON NORMALS: mental status grossly normal Urinary Catheter Management: Carroll: Cath Placed During This Visit: yes Reason for Continuing Indwelling Catheter: Accurate Measurement of Urinary Output in Critically Ill Patients Urinary Catheter Date of Insertion: 05/25/25 Urinary Catheter Time of Insertion: 02:17 Data 05/25/25 08:47 05/25/25 06:28 Micro: Microbiology 05/25/25 08:25 Occult Blood (FIT) - Final Stool - Stool Aspirate A&P Assessment and plan 1. Acute deep vein thrombosis (DVT) of femoral vein of left lower extremity: 2. Severe anemia: 3. History of lumbar spinal fusion: 4. Shortness of breath at rest: 5. Coronary artery disease involving [place] coronary artery of [place] heart without angina pectoris: 6. Perioperative cardiac complication: 7. Status post total left knee replacement not using cement: 8. Primary hypertension: 9. Mixed hyperlipidemia: 10. Gastroesophageal reflux disease without esophagitis: 11. Major depressive disorder with single episode, in full remission: 12. Insomnia due to medical condition: 13. GI bleed: 14. Left upper lobe pneumonia: 15. Shock: 16. Bilateral pulmonary embolism: Plan: Bilateral pulmonary embolism CT/CT angio chest PE protcl [id number] IMPRESSION: 1. Several segmental pulmonary emboli in the right lower lobe and left upper lobe. 2. RV to LV ratio of 1.1 is suggestive of right heart strain. 3. Several scattered subcentimeter ground-glass opacities in the left upper lobe, nonspecific and may represent infectious or inflammatory pneumonitis. 4. Age-indeterminate mild inferior endplate compression deformities of T8 and T10 vertebral bodies, new compared to 08/27/2021. -Complicated by acute anemia, concerns for GI bleed -With evidence of right heart strain Plan - Initially heparin drip was held due to acute anemia, elevated PTT - Now resumed - Will decrease rate by 3 units/kg/hr recheck PTT 4 hours - Monitor hemoglobin 4 hours - If patient has worsening anemia she might require IVC filter placement Acute DVT left lower extremity - As above Multifactorial shock - Acute blood loss anemia - Hypotension - Component septic shock - RV failure - Has responded to fluids, albumin, midodrine - Levophed to maintain MAP greater than 65 Left upper lobe pneumonia -Follow cultures -Vancomycin - Zosyn Right heart strain CONCLUSIONS 1. Normal biventricular size and normal LV EF 58%. 2. Mild hypokinesis of the right ventricle 3. Mild to moderate mitral valve regurgitation 4. Mild to moderate tricuspid valve regurgitation 5. Normal Pulmonary pressure by doppler estimate. Acute anemia - Hemoglobin down to 6.6, now up to 9.2 - Required 2 units PRBC - No active hemorrhage - CT scan abdomen pelvis negative for retroperitoneal bleed - Monitor hemoglobin every 4 hours - Maintain hemoglobin greater than 7 - Patient is on heparin drip as above - Will likely require GI, IR if she does have further bleeding Recent history of lumbar surgery, cauda equina syndrome, 05/13/2025 -Surgical site fluid collection -Hematoma versus surgical site infection/abscess versus seroma CT/CT lumbar spine w con [id number] IMPRESSION: 1. No acute fracture of the lumbar spine. 2. Postsurgical changes of posterior lumbar spine fusion spanning L2-L5, with intact surgical hardware. 3. A 2.5 x 3.3 x 12.6 cm subcutaneous fluid collection is present in the surgical bed underlying the skin aiden, compatible with seroma, hematoma, or abscess. Plan -Spoke to Dr. Stahl, recommended stat MRI with and without contrast as well as patient comes to [facility] -Etiology could be hematoma versus seroma versus infection -He is on vancomycin -Is on Zosyn -Is on heparin drip for bilateral pulmonary embolism as above, discussed risk and benefits with patient family, they voiced understanding, all questions answered, certainly this is a difficult decision, there is no perfect answer -But given the life-threatening situation of her bilateral pulmonary embolism, acute DVT, RV failure, would recommend anticoagulant therapy while watching her hemoglobin closely especially with GI bleed concerns as above -Transfer to tertiary level center Full code Heparin drip DVT prophylaxis PDMP PDMP Reviewed: Not Reviewed Attestations 2 Medical Necessity Statement*: Patient requires hospitalization, inpatient, greater than 2 midnights for bilateral pulmonary embolism, DVT, GI bleed, anemia, left upper lobe pneumonia, shock, right heart strain, multifactorial shock Coding Level of Care Code Critical Care >/= 30 minutes Critical care time (in minutes): 60 The high probability of a clinically significant, sudden or life threatening deterioration, as referenced in this documentation, required my full and direct attention, intervention and personal management. The critical care time shown is in addition to time spent performing any reported separately billable procedures and includes the following: [x] Data and vital sign review and interpretation [x ] Patient assessment, examination and intervention [x] Medication orders and management [x] Patient/Family updates as able [x] Care Coordination and Documentation. Diagnoses Acute deep vein thrombosis (DVT) of femoral vein of left lower extremity I82.412 Affected thrombotic vein of extremity: femoral Severe anemia D64.9 History of lumbar spinal fusion Z98.1 Shortness of breath at rest R06.02 Coronary artery disease involving southern [place] coronary artery of [place] heart without angina pectoris I25.10 Associated angina: without angina Coronary Disease-Associated Artery/Lesion type: [place] artery [place] vs. transplanted heart: [place] heart Perioperative cardiac complication Status post total left knee replacement not using cement Z96.652 Primary hypertension I10 Hypertension type: primary hypertension Mixed hyperlipidemia E78.2 Hyperlipidemia type: mixed hyperlipidemia Gastroesophageal reflux disease without esophagitis K21.9 Esophagitis presence: without esophagitis Major depressive disorder with single episode, in full remission F32.5 Active/Remission status: in full remission Depression Type: major depressive disorder Major depression recurrence: single episode Insomnia due to medical condition G47.01 Insomnia type: due to medical condition GI bleed K92.2 Left upper lobe pneumonia J18.9 Shock R57.9 Bilateral pulmonary embolism I26.99
--- NOTE | 2025-05-25 12:15 | PC.NURSE ---
V/O received for a one time order of 100mg PO Trazadone. Ordered by Dr Johnson. Order added to chart by this RN. Primary nurse notified of new med order. See MAR for followed med administration.
--- NOTE | 2025-05-25 13:20 | PC.NURSE ---
Report was called to SURY Dominguez at [facility] in [place]. ICU room 4123. Phone number is [phone]. Patient was picked up at 1322 by [facility]. All of patient's belongings were sent with the patient. Patient was stable during transfer.
--- NOTE | 2025-05-25 15:17 | PM.TDS ---
Transfer Summary Providers Date of Admission: 05/24/25 14:37 Date of Discharge/Transfer: 05/25/25 Attending Provider at Admission: Shanice Leonardo MD Attending Provider at Transfer: Luca Johnson MD Primary Care Provider: Georgette Bhatt Transfer Plans: Anticipated date of transfer: 05/25/25. Diagnoses at Discharge Discharge Diagnosis 1. Acute deep vein thrombosis (DVT) of femoral vein of left lower extremity: 2. Severe anemia: 3. History of lumbar spinal fusion: 4. Shortness of breath at rest: 5. Coronary artery disease involving [place] coronary artery of [place] heart without angina pectoris: 6. Perioperative cardiac complication: 7. Status post total left knee replacement not using cement: 8. Primary hypertension: 9. Mixed hyperlipidemia: 10. Gastroesophageal reflux disease without esophagitis: 11. Major depressive disorder with single episode, in full remission: 12. Insomnia due to medical condition: 13. GI bleed: 14. Left upper lobe pneumonia: 15. Shock: 16. Bilateral pulmonary embolism: Reason for Visit Reason for Visit back pain, poss DVT, PE Hospital Course Hospital Course This is a 75-year female with a recent history of cauda equina syndrome/spinal cord compression who recently had lower lumbar surgery, currently at [facility], who presents [facility] due to left lower extremity pain and chest pain Patient was admitted to [facility] for left lower extremity DVT, with acute anemia, with bilateral pulmonary embolism, concerns for slow GI bleed, she was admitted to the ICU, started on heparin drip, which had to be paused due to elevated PTT and low hemoglobin. She required 2 units PRBC, no active evidence of GI bleed, no evidence of retroperitoneal bleed on CT, hemoglobin improved to 9.2. Furthermore there was a concern for persistent shock, multifactorial from septic shock from pneumonia, possible surgical site infection involving her lower lumbar spine given CT imaging findings, this required fluid, albumin, midodrine. She was started on broad-spectrum antibiotic therapy. As per patient's family request they requested transfer to [facility] where she recently had her lower lumbar surgery. Given the complexity of patient's situation with acute anemia, concerns for possible GI bleed, with bilateral pulmonary embolism with right heart strain, left lower extremity DVT, with lower lumbar surgical site hematoma versus seroma versus abscess she was transferred to tertiary level center. 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, she is alert to person, to place, not to time, she follows commands, she is complaining of abdominal pain, bilateral flank pain, she had a large bowel movement she is hypotensive MAP is around 60, she is on room air, no tachycardia - Discussed doing a stat CT abdomen pelvis to rule out retroperitoneal bleed as she was quite anemic without a good source, denies any bloody black stools - I have also ordered 500 mL of normal saline, she was started on albumin therapy, midodrine therapy - In addition order placed for Levophed for shock - Discussed with patient that she she is currently in shock, she has good DP PT pulses, no significant mottling, the shock could be multifactorial right heart strain from her pulmonary embolism, from acute anemia, source could be acute GI bleed versus retroperitoneal bleed, other causes could be septic shock, given her CT chest findings she has a left upper lobe infiltrate, could be pneumonia although she is on room air, her CRP is 39, Pro-Adin 0.09 I started her on broad-spectrum antibiotic therapy, vancomycin, Zosyn - Other potential etiologies could be your lower lumbar spine, in the soft tissue she has a 2.5 x 3.3 x 12.6 cm fluid collection in the surgical bed underlying her skin staple after her lumbar back surgery for cauda equina syndrome, this could represent a seroma or hematoma or an abscess - Nonetheless I have started her on IV antibiotics - Discussed with her that I we will reach out to her neurosurgeon at [facility] - She will need to go to the ICU due to her persistent shock - I have ordered a stat CT abdomen pelvis rule out retroperitoneal bleed - Will reach out to [facility] as she was initially going to go to the medical floors, however now she needs to go to the ICU given her persistent hypotension - For her pulmonary embolism, and left lower extremity DVT, her heparin drip has been held early this morning due to elevated PTT, and was not resumed due to concern for further bleeding although she denies any bloody or black stools - Her hemoglobin has improved to 9.2 - Discussed also the possibility of IVC filter placement, depending on how long she is here at [facility], -If she has a retroperitoneal bleed, then she will need an IVC filter to decrease the risk of embolization of her left lower extremity DVT, but it will not prevent her from having further DVTs -If she does not have a retroperitoneal bleed, her hemoglobin remained stable, no evidence of active GI bleed we can give a trial of anticoagulant therapy, with appropriate backup such as GI, IR -If she does not have any bleeding that we can avoid IVC filter, which has its risks and benefits -If she does have bleeding she will be at a center with appropriate backup such as IR and GI to help with her bleeding which certainly could be life-threatening -While she is on anticoagulant therapy, as she will be with specialist at [facility], such as neurosurgery the large fluid collection can be further delineated and monitored with appropriate backup, just in case it is a hematoma or source of bleeding -Discussed with family that this fluid collection certainly could be a benign seroma -Other possibilities include a abscess, which carry significant morbidity mortality and would require surgical debridement and drainage -If it was a hematoma, if it symptomatic it would require drainage -She denies any sudden onset worsening of her bilateral lower extremities, no saddle anesthesia, no perianal anesthesia, no urine incontinence, no bowel incontinence but does report generalized weakness - Certainly this is a difficult situation as we have a couple source of bleeding such as possible retroperitoneal bleed, possible GI bleed with her acute anemia, in addition to potentially bleeding into her surgical site given her CT scan findings in the lumbar spine - Discussed the risk and benefits of trial of anticoagulant therapy, IV heparin, with her acute anemia, and findings as above, - Family members are at bedside, understand the complexity of the situation -Patient was taken to his CAT scan of the abdomen, CT scan abdomen pelvis does not show any geographic evidence of retroperitoneal bleed - I discussed the case with [facility], they are agreeable to take patient to their ICU - Patient was seen again in the ICU, she is not on any pressors she remains normotensive, on albumin, midodrine alert to person, to place, to time, she does complain of abdominal pain and flank pain although improved - She did have a large bowel movement earlier this morning - Discussed with patient and family risk and benefits of anticoagulant therapy, she voiced understanding, all questions answered, agreed to proceed will resume heparin drip, decrease rate of infusion, no bolus, watch hemoglobin - Spoke to patient's surgeon at [facility], who recommended transfer to [facility] with consultation by neurosurgery and MRI lumbar spine with and without contrast - Currently echocardiogram being completed EF 58%, mild right ventricular hypokinesia - Her blood pressures have improved, now normotensive, on room air, pulse is 49, - Unfortunately ER cannot fly given the weather - Will arrange ground transportation Bilateral pulmonary embolism CT/CT angio chest PE protcl [id number] IMPRESSION: 1. Several segmental pulmonary emboli in the right lower lobe and left upper lobe. 2. RV to LV ratio of 1.1 is suggestive of right heart strain. 3. Several scattered subcentimeter ground-glass opacities in the left upper lobe, nonspecific and may represent infectious or inflammatory pneumonitis. 4. Age-indeterminate mild inferior endplate compression deformities of T8 and T10 vertebral bodies, new compared to 08/27/2021. -Complicated by acute anemia, concerns for GI bleed -With evidence of right heart strain Plan - Initially heparin drip was held due to acute anemia, elevated PTT - Now resumed - Will decrease rate by 3 units/kg/hr recheck PTT 4 hours - Monitor hemoglobin 4 hours - If patient has worsening anemia she might require IVC filter placement Acute DVT left lower extremity - As above Multifactorial shock - Acute blood loss anemia - Hypotension - Component septic shock - RV failure - Has responded to fluids, albumin, midodrine - Levophed to maintain MAP greater than 65 Left upper lobe pneumonia -Follow cultures -Vancomycin - Zosyn Right heart strain CONCLUSIONS 1. Normal biventricular size and normal LV EF 58%. 2. Mild hypokinesis of the right ventricle 3. Mild to moderate mitral valve regurgitation 4. Mild to moderate tricuspid valve regurgitation 5. Normal Pulmonary pressure by doppler estimate. Acute anemia - Hemoglobin down to 6.6, now up to 9.2 - Required 2 units PRBC - No active hemorrhage - CT scan abdomen pelvis negative for retroperitoneal bleed - Monitor hemoglobin every 4 hours - Maintain hemoglobin greater than 7 - Patient is on heparin drip as above - Will likely require GI, IR if she does have further bleeding Recent history of lumbar surgery, cauda equina syndrome, 05/13/2025 -Surgical site fluid collection -Hematoma versus surgical site infection/abscess versus seroma CT/CT lumbar spine w con [id number] IMPRESSION: 1. No acute fracture of the lumbar spine. 2. Postsurgical changes of posterior lumbar spine fusion spanning L2-L5, with intact surgical hardware. 3. A 2.5 x 3.3 x 12.6 cm subcutaneous fluid collection is present in the surgical bed underlying the skin aiden, compatible with seroma, hematoma, or abscess. Plan -Spoke to Dr. Stahl, recommended stat MRI with and without contrast as well as patient comes to [facility] -Etiology could be hematoma versus seroma versus infection -He is on vancomycin -Is on Zosyn -Is on heparin drip for bilateral pulmonary embolism as above, discussed risk and benefits with patient family, they voiced understanding, all questions answered, certainly this is a difficult decision, there is no perfect answer -But given the life-threatening situation of her bilateral pulmonary embolism, acute DVT, RV failure, would recommend anticoagulant therapy while watching her hemoglobin closely especially with GI bleed concerns as above -Transfer to tertiary level center Physical Exam Const: COMMON NORMALS: no acute distress and patient oriented x3 Resp: COMMON NORMALS: normal respiratory effort, No retractions, No use of accessory muscles and clear to auscultation bilaterally AUSCULTATION: clear to auscultation bilaterally Cardio: COMMON NORMALS: regular rate, regular rhythm, S1 normal heart sound present and S2 normal heart sound present RATE: regular rate RHYTHM: regular rhythm HEART SOUNDS: S1 normal heart sound present and S2 normal heart sound present GI: COMMON NORMALS: Normal to inspection, nondistended, normoactive bowel sounds present and non-tender Extremity: COMMON NORMALS: no pedal edema Neuro: COMMON NORMALS: patient oriented x3 Psych: COMMON NORMALS: mental status grossly normal Urinary Catheter Management: Carroll: Cath Placed During This Visit: yes Reason for Continuing Indwelling Catheter: Accurate Measurement of Urinary Output in Critically Ill Patients Urinary Catheter Date of Insertion: 05/25/25 Urinary Catheter Time of Insertion: 02:17 TS Data Studies Completed and Pending Pending at discharge Category Date Time Status Leukocyte Reduced RBC Stat Lab 05/24/25 12:54 Results Type and Screen Routine Lab 05/24/25 12:54 Results Completed Studies During Hospitalization Category Date Time Status CT abdomen pelvis wo con [id number] Stat Cat Scan 05/25/25 09:[address] lumbar spine w con [id number] Stat Cat Scan 05/24/25 15:57 Completed CTA chest [CT angio chest PE protcl [id number]] Stat Cat Scan 05/24/25 15:57 Completed XR chest 1V portable [id number] Stat Exams 05/24/25 12:20 Completed XR chest 1V portable [id number] Stat Exams 05/25/25 01:46 Completed CV. echo complete* [id number] Stat Ultrasound 05/25/25 06:00 Completed US venous duplex lower extremity LT [CV venous duplex Ultrasound 05/24/25 12:32 [place] [id number]] Stat Laboratory Last Values WBC 5.16 10^3/uL (3.29-11.43) 05/25/25 06:28 RBC 3.24 10^6/uL (3.85-5.65) L 05/25/25 06:28 Hgb 9.20 g/dL (11.27-16.99) L 05/25/25 08:47 Hct 29.7 % (36-47) L 05/25/25 08:47 MCV 87.7 fl (85-98) 05/25/25 06:28 MCH 27.2 pg (27-33) 05/25/25 06:28 MCHC 31.0 g/dL (30-55) 05/25/25 06:28 RDW 16.0 % (12.1-15.1) H 05/25/25 06:28 Plt Count 173 10^3/cmm (157-399) 05/25/25 06:28 MPV 9.9 fL (7.4-10.4) 05/25/25 06:28 Neut % (Auto) 57.3 % 05/25/25 06:28 Lymph % (Auto) 22.9 % 05/25/25 06:28 [place] % (Auto) 14.9 % 05/25/25 06:28 Eos % (Auto) 3.1 % 05/25/25 06:28 Baso % (Auto) 0.4 % 05/25/25 06:28 Reticulocyte % (Auto) 2.0 % (0.5-2.0) 05/24/25 12:32 Neut # (Auto) 2.96 10^3/uL (1.8-7.7) 05/25/25 06:28 Lymph # (Auto) 1.2 10^3/uL (0.8-4.8) 05/25/25 06:28 [place] # (Auto) 0.8 10^3/uL (0.2-0.9) 05/25/25 06:28 Eos # (Auto) 0.2 10^3/uL (0.0-0.8) 05/25/25 06:28 Baso # (Auto) 0.0 10^3/uL (0.0-0.1) 05/25/25 06:28 Nucleated RBC % (auto) 0 % 05/25/25 06:28 Nucleated RBCs # 0.0 /100WBC 05/25/25 06:28 PT 14.20 SECONDS (12.1-14.9) 05/24/25 12:32 INR 1.03 (0.8-1.2) 05/24/25 12:32 APTT 38.8 SECONDS (23.9-36.7) H D 05/25/25 01:04 Sodium 140 mmol/L (136-145) 05/25/25 06:28 Potassium 3.8 mmol/L (3.5-5.1) 05/25/25 06:28 Chloride 108 mmol/L (98-107) H 05/25/25 06:28 Carbon Dioxide 22 mmol/L (22-29) 05/25/25 06:28 Anion Gap 13.8 (5-19) 05/25/25 06:28 BUN 13 mg/dL (8-23) 05/25/25 06:28 Creatinine 0.9 mg/dL (0.5-0.9) 05/25/25 06:28 GFR Calculation Not Reportable 05/25/25 06:28 Glucose 90 mg/dL (65-115) 05/25/25 06:28 Calculated Osmolality 290 mOsm/kg (285-295) 05/25/25 06:28 Lactic Acid 0.7 mmol/L (0.5-2.2) 05/25/25 08:47 Calcium 8.4 mg/dL (8.5-10.5) L 05/25/25 06:28 Iron 15 ug/dL (37-145) L 05/24/25 12:32 TIBC 183 mcg/dl 05/24/25 12:32 % Saturation 8.1 % (20-50) L 05/24/25 12:32 Unsat Iron Binding 168 ug/dL (112-347) 05/24/25 12:32 Total Bilirubin 0.2 mg/dL (0.15-1.2) 05/24/25 12:32 AST 13 U/L (0-32) 05/24/25 12:32 ALT 6 U/L (0-33) 05/24/25 12:32 Alkaline Phosphatase 88 U/L (35-105) 05/24/25 12:32 Troponin T Baseline 20 ng/L (0-10) H 05/24/25 12:32 Troponin T 120 Minute 21.24 ng/L (0-10) H 05/24/25 14:26 Delta Troponin T 1.24 ABS# (0-10) 05/24/25 14:26 Troponin T Hi Sens 6Hr 24.47 ng/L (0-10) H 05/24/25 19:11 Troponin T Hi Sens 6Hr Delta 4.47 ng/L (0-12) 05/24/25 19:11 C-Reactive Protein 39.0 mg/L (0.0-4.9) H 05/25/25 06:28 Total Protein 5.5 g/dL (6.6-8.7) L 05/24/25 12:32 Albumin 2.8 g/dL (3.5-5.2) L 05/24/25 12:32 Globulin 2.7 g/dL (1.3-4.6) 05/24/25 12:32 Vitamin B12 555 pg/mL (232-1245) 05/24/25 12:32 Folate 15.1 ng/mL (4.8-37.3) 05/24/25 12:32 Procalcitonin 0.09 ng/mL (0-0.5) 05/25/25 06:28 Urine Color Yellow (Yellow) 05/24/25 13:18 Urine Appearance Clear (CLEAR) 05/24/25 13:18 Urine pH 7.5 (5-7) 05/24/25 13:18 Ur Specific [place] 1.020 (1.005-1.030) 05/24/25 13:18 Urine Protein Negative (Negative) 05/24/25 13:18 Urine Glucose (UA) Negative (Normal) 05/24/25 13:18 Urine Ketones Negative (Negative) 05/24/25 13:18 Urine Blood Negative (Negative) 05/24/25 13:18 Urine Nitrate Negative (Negative) 05/24/25 13:18 Urine Bilirubin Negative (Negative) 05/24/25 13:18 Urine Urobilinogen 1.0 mg/dL (Negative) 05/24/25 13:18 Ur Leukocyte Esterase Trace (Negative) A 05/24/25 13:18 Urine RBC 0-2 /hpf (0-2) 05/24/25 13:18 Urine WBC 0-5 /hpf (0-5) 05/24/25 13:18 Ur Squamous Epith Cells 0-5 /hpf (0-5) 05/24/25 13:18 Amorphous Sediment Not Reportable 05/24/25 13:18 Urine Bacteria None seen /hpf (NONE) 05/24/25 13:18 Hyaline Casts 1.21 /lpf 05/24/25 13:18 Blood Type O Positive 05/24/25 12:54 Rho(D) Type Rh positive 05/24/25 12:54 Antibody Screen Negative 05/24/25 12:54 Crossmatch See Detail 05/24/25 12:54 Radiology Impressions Chest CTA 05/24/25 15:57 IMPRESSION: 1. Several segmental pulmonary emboli in the right lower lobe and left upper lobe. 2. RV to LV ratio of 1.1 is suggestive of right heart strain. 3. Several scattered subcentimeter ground-glass opacities in the left upper lobe, nonspecific and may represent infectious or inflammatory pneumonitis. 4. Age-indeterminate mild inferior endplate compression deformities of T8 and T10 vertebral bodies, new compared to 08/27/2021. COMMENTS: THIS REPORT CONTAINS FINDINGS THAT MAY BE CRITICAL TO PATIENT CARE. The exam findings were verbally communicated by me to SHANICE LEONARDO via telephone conference at 5:50 PM CDT on 05/24/2025. The findings were acknowledged and understood. Lumbar Spine CT 05/24/25 15:57 IMPRESSION: 1. No acute fracture of the lumbar spine. 2. Postsurgical changes of posterior lumbar spine fusion spanning L2-L5, with intact surgical hardware. 3. A 2.5 x 3.3 x 12.6 cm subcutaneous fluid collection is present in the surgical bed underlying the skin aiden, compatible with seroma, hematoma, or abscess. Chest X-Ray 05/25/25 01:46 IMPRESSION: 1. Mild central pulmonary arterial prominence, which may correspond to noted history of acute pulmonary emboli and suggestive pulmonary hypertension. 2. Otherwise, no acute pulmonary process. Abdomen/Pelvis CT 05/25/25 09:00 IMPRESSION: 1. No evidence of retroperitoneal hemorrhage 2. Subsegmental atelectasis in the LEFT greater than RIGHT lung bases. Trace pleural fluid RIGHT lower lobe 3. Recent postoperative changes lumbar spine 4. Small esophageal hiatal hernia. 5. Carroll catheter Recent Clincial Data Last Vital Signs Temp 98.4 F 05/25/25 06:07 Pulse 49 L 05/25/25 12:15 Resp 17 05/25/25 12:15 BP 130/70 05/25/25 12:15 Pulse Ox 94 05/25/25 12:15 O2 Del Method Room Air 05/25/25 12:15 Vital Signs Temp Pulse Resp BP Pulse Ox O2 Del Method O2 Del Method 05/25/25 12:15 49 L 17 130/70 94 Room Air 05/25/25 12:00 49 L 16 140/67 94 05/25/25 11:45 62 16 140/60 93 05/25/25 11:30 49 L 15 136/53 95 05/25/25 11:15 60 18 96 05/25/25 11:00 64 22 H 141/65 96 05/25/25 10:45 51 L 13 129/65 93 05/25/25 10:30 47 L 17 147/61 94 05/25/25 10:15 56 L 20 H 146/67 95 05/25/25 10:03 50 L 96 Room Air 05/25/25 10:00 46 L 14 131/78 97 Room Air 05/25/25 09:45 46 L 18 126/61 97 05/25/25 09:35 52 L 19 H 05/25/25 09:15 115/72 05/25/25 09:00 50 L 16 118/65 95 05/25/25 08:45 56 L 15 92/51 98 05/25/25 08:30 56 L 19 H 87/45 98 05/25/25 08:15 61 18 89/51 94 05/25/25 08:00 58 L 16 87/45 96 05/25/25 07:45 56 L 15 77/36 95 05/25/25 07:30 64 19 H 111/49 97 05/25/25 07:15 76 15 80/47 96 05/25/25 07:00 60 20 H 97 05/25/25 06:45 54 L 16 109/53 97 05/25/25 06:30 47 L 18 125/69 97 05/25/25 06:15 50 L 21 H 72/52 96 05/25/25 06:07 98.4 F 47 L 14 87/52 98 05/25/25 06:00 98.2 F 47 L 18 95/50 96 05/25/25 05:45 48 L 16 91/46 94 05/25/25 05:30 46 L 11 L 93/44 93 05/25/25 05:26 49 L 05/25/25 05:20 97.8 F 49 L 14 93/44 93 05/25/25 05:15 51 L 15 96/60 94 05/25/25 05:00 51 L 18 102/62 94 05/25/25 04:45 50 L 13 123/60 95 05/25/25 04:34 98.2 F 50 L 15 123/60 97 05/25/25 04:30 52 L 16 127/61 98 05/25/25 04:15 55 L 17 134/64 97 05/25/25 04:00 61 21 H 112/58 96 05/25/25 03:45 58 L 17 118/55 97 05/25/25 03:34 98.2 F 64 19 H 118/55 98 05/25/25 03:31 98.2 F 64 19 H 118/55 98 05/25/25 03:30 58 L 16 113/57 93 05/25/25 03:19 98.2 F 60 21 H 113/57 96 Intake & Output/Weight 05/23/25 05/24/25 05/25/25 05/26/25 06:59 06:59 06:59 06:59 Intake Total 2057 / 2057 900 / 900 Output Total 2400 / 2400 1500 / 1500 Balance -342 / -342 -600 / -600 Weight 83.007 kg Vitals Last Vital Signs Temp 98.4 F 05/25/25 06:07 Pulse 49 L 05/25/25 12:15 Resp 17 05/25/25 12:15 BP 130/70 05/25/25 12:15 Pulse Ox 94 05/25/25 12:15 O2 Del Method Room Air 05/25/25 12:15 TS Medications Medications Discontinued Medications Acetaminophen (Acetaminophen 325 Mg Tablet) 650 mg PO Q6H PRN PRN Reason: Mild pain or fever Last Admin: 05/24/25 22:32 Dose: 650 mg Hydrocodone Bitart/Acetaminophen (Hydrocodone-Acetaminophen 10-325 Mg Tablet) 1 tab PO Q4H PRN PRN Reason: MODERATE TO SEVERE PAIN Last Admin: 05/25/25 04:15 Dose: 1 tab Albuterol Sulfate (Albuterol 2.5 Mg/3 Ml Neb) 2.5 mg NEBULIZER Q6H PRN PRN Reason: Shortness Of Breath Or Wheezing Atorvastatin Calcium (Atorvastatin 40 Mg Tablet) 40 mg PO BEDTIME [facility] Last Admin: 05/24/25 22:33 Dose: 40 mg Bisacodyl (Bisacodyl 5 Mg Tablet) 10 mg PO DAILY PRN; Protocol PRN Reason: Constipation (see protocol) Buspirone HCl (Buspirone 10 Mg Tablet) 10 mg PO TID [facility] Last Admin: 05/25/25 08:05 Dose: 10 mg Calcium Carbonate (Calcium Carbonate 500 Mg Chew Tablet) 1,000 mg PO Q4H PRN PRN Reason: DYSPEPSI Docusate Sodium (Docusate Sodium 100 Mg Capsule) 100 mg PO BID [facility] Last Admin: 05/25/25 08:06 Dose: Not Given Ferrous Sulfate (Ferrous Sulfate Ec 325 Mg Tablet) 325 mg PO TIDWM [facility] Last Admin: 05/25/25 12:20 Dose: 325 mg Furosemide (Furosemide 10 Mg/Ml Sdv 4ml) 40 mg IVP ONCE ONE Stop: 05/25/25 01:50 Last Admin: 05/25/25 02:35 Dose: 40 mg Furosemide (Furosemide 10 Mg/Ml Sdv 2ml) 20 mg IVP ONCE ONE Stop: 05/25/25 03:01 Last Admin: 05/25/25 03:18 Dose: 20 mg Heparin Sodium (Porcine) (Heparin 5,000 Unit/Ml Inj 1 Ml) 0 unit IVP PRN PRN; Protocol PRN Reason: Heparin Weight Based Protocol -Subsequent Bolus Heparin Sodium (Porcine) (Heparin 5,000 Unit/Ml Inj 1 Ml) 0 unit IVP ONCE ONE; Protocol Stop: 05/24/25 13:18 Last Increment: 05/24/25 14:26 Dose: 4,200 unit Incremental Dosing Total Given: 4,200 unit Heparin Sodium/Sodium Chloride (Heparin Drip) 25,000 unit in 500 mls @ 0 mls/hr IV CONT TANISHA; Protocol Last Titration: 05/25/25 10:36 Dose: 10.07 unit/kg/hr, 17 mls/hr Sodium Chloride (Sodium Chloride 0.9%) 1,000 mls @ 100 mls/hr IV .Q10H TANISHA Last Admin: 05/25/25 03:08 Dose: Not Given Sodium Chloride (Sodium Chloride 0.9%) 250 mls @ 250 mls/hr IV ONCE ONE Stop: 05/24/25 20:59 Last Infusion: 05/24/25 22:00 Dose: Infused Lactated Ringer's (Lactated Ringers) 500 mls @ 999 mls/hr IV .Q31M ONE Stop: 05/25/25 09:03 Last Infusion: 05/25/25 12:19 Dose: Infused Norepinephrine Bitartrate (Levophed) 4 mg in 250 mls @ 0 mls/hr IV .Q0M TANISHA; Protocol Albumin Human (Albumin) 50 g in 200 mls @ 60 mls/hr IV ONCE ONE Stop: 05/25/25 12:01 Albumin Human (Albumin) 25 g in 100 mls @ 60 mls/hr IV Q8H TANISHA Vancomycin HCl / Sodium (Chloride) 250 mls @ 0 mls/hr [id number] PROTOCOL TANISHA; Protocol Piperacillin Sod/Tazobactam (Sod / Sodium Chloride) 50 mls @ 0 mls/hr [id number] CONT TANISHA; Protocol Albumin Human (Albumin) 50 g in 200 mls @ 60 mls/hr IV ONCE ONE Stop: 05/25/25 12:19 Last Admin: 05/25/25 09:42 Dose: 60 mls/hr Piperacillin Sod/Tazobactam (Sod 3.375 gm/ Sodium Chloride) 50 mls @ 12.5 mls/hr IV Q8H [facility] Last Admin: 05/25/25 09:44 Dose: 12.5 mls/hr Vancomycin HCl (Vancocin) 2,000 mg in 400 mls @ 200 mls/hr IV ONCE ONE Stop: 05/25/25 11:29 Last Infusion: 05/25/25 12:19 Dose: Infused Vancomycin HCl 500 mg/ Sodium (Chloride) 100 mls @ 200 mls/hr IV Q12H [facility] Iohexol (Iohexol 350 Mg/Ml 500 Ml Btl (Per Ml)) 0 ml IV ONCE ONE Stop: 05/24/25 16:07 Last Admin: 05/24/25 16:06 Dose: 125 ml Magnesium Oxide (Magnesium Oxide 400 Mg Tablet) 400 mg PO DAILY [facility] Last Admin: 05/25/25 08:06 Dose: 400 mg Midodrine (Midodrine 5 Mg Tablet) 10 mg PO Q6H [facility] Last Admin: 05/25/25 08:54 Dose: 10 mg Multivitamins Therapeutic (Multivitamin Therapeutic Tablet) 1 tab PO DAILY [facility] Last Admin: 05/25/25 08:05 Dose: 1 tab Ondansetron HCl (Ondansetron 2 Mg/Ml Sdv 2 Ml) 4 mg IVP Q8H PRN PRN Reason: vomiting, or N/V if npo Pantoprazole Sodium (Pantoprazole Dr 40 Mg Tablet) 40 mg PO DAILY [facility] Last Admin: 05/25/25 08:05 Dose: 40 mg Pregabalin (Pregabalin 75 Mg Capsule) 75 mg PO Q8H [facility] Last Admin: 05/25/25 08:06 Dose: 75 mg Senna (Sennosides 8.6 Mg Tablet) 17.2 mg PO BEDTIME [facility] Last Admin: 05/24/25 22:33 Dose: 17.2 mg Sertraline HCl (Sertraline 100 Mg Tablet) 100 mg PO DAILY [facility] Last Admin: 05/25/25 08:05 Dose: 100 mg Sodium Chloride (Sodium Chloride 0.9% 100 Ml Bag) 50 ml IV PRN PRN PRN Reason: Blood transfusion prime and flush Stop: 05/25/25 16:25 Sodium Chloride (Sodium Chloride 0.9% 100 Ml Bag) 50 ml IV PRN PRN PRN Reason: Blood transfusion prime and flush Stop: 05/26/25 01:52 Last Admin: 05/25/25 03:07 Dose: 50 ml Sodium Chloride (Sodium Chloride 0.9% 100 Ml Bag) 50 ml IV PRN PRN PRN Reason: Blood transfusion prime and flush Stop: 05/26/25 02:23 Topiramate (Topiramate 25 Mg Tablet) 25 mg PO BID [facility] Last Admin: 05/25/25 08:05 Dose: 25 mg Trazodone HCl (Trazodone 100 Mg Tablet) 50 mg PO BEDTIME PRN PRN Reason: INSOMNIA Trazodone HCl (Trazodone 100 Mg Tablet) 100 mg PO PRN ONE Stop: 05/25/25 12:15 Last Admin: 05/25/25 12:19 Dose: 100 mg Allergies lisinopril Allergy (Verified 05/24/25 20:44) Unknown morphine Allergy (Verified 05/24/25 20:44) ALGY-Anaphylaxis oxycodone (From Percocet) Allergy (Verified 05/24/25 20:44) ADR/ALGY-Flushing prochlorperazine (From Compazine) Allergy (Verified 05/24/25 20:44) ADR-Itching propoxyphene (From Darvocet-N) Allergy (Verified 05/24/25 20:44) ADR-Hypertension Home Medications omeprazole 40 mg capsule,delayed release 40 mg PO DAILY 08/27/21 [History Confirmed 05/24/25] sertraline 100 mg tablet 100 mg PO DAILY 08/27/21 [History Confirmed 05/24/25] topiramate 25 mg tablet 25 mg PO BID 08/27/21 [History Confirmed 05/24/25] diclofenac sodium 1 % topical gel (Arthritis Pain (diclofenac)) 4 g topical QID #100 grams 08/28/24 [Rx Confirmed 05/24/25] RSVPreF3 antigen-AS01E adjuvant(PF) 120 mcg/0.5 mL IM suspension, kit (Arexvy (PF)) 120 mcg IM ONCE 05/24/25 [History Confirmed 05/24/25] acetaminophen 325 mg tablet (Tylenol) 650 mg PO Q6H PRN Mild pain or fever 05/24/25 [History Confirmed 05/24/25] albuterol sulfate 2.5 mg/3 mL (0.083 %) solution for nebulization 2.5 mg continuous nebulization Q6H PRN Shortness Of Breath Or Wheezing 05/24/25 [History Confirmed 05/24/25] albuterol sulfate 90 mcg/actuation aerosol inhaler 2 puff inhalation Q6H PRN Shortness Of Breath Or Wheezing 05/24/25 [History Confirmed 05/24/25] atorvastatin 40 mg tablet 40 mg PO BEDTIME 05/24/25 [History Confirmed 05/24/25] bisacodyl 10 mg rectal suppository (Dulcolax (bisacodyl)) 10 mg NV DAILY PRN Constipation If cant take po, no results from MOM 05/24/25 [History Confirmed 05/24/25] buspirone 10 mg tablet 10 mg PO TID 05/24/25 [History Confirmed 05/24/25] cholecalciferol (vitamin D3) 1,250 mcg (50,000 unit) capsule 1,250 unit PO .WEEKLY 05/24/25 [History Confirmed 05/24/25] famotidine 20 mg tablet 20 mg PO BID 05/24/25 [History Confirmed 05/24/25] ferrous sulfate 325 mg (65 mg iron) tablet (FeroSul) 325 mg PO EVERY OTHER DAY 05/24/25 [History Confirmed 05/24/25] hydrocodone 10 mg-acetaminophen 325 mg tablet 1 tab PO Q4H PRN moderate to severe pain 05/24/25 [History Confirmed 05/24/25] lactulose 10 gram/15 mL oral solution 30 ml PO TID PRN Constipation 05/24/25 [History Confirmed 05/24/25] magnesium oxide 400 mg (241.3 mg magnesium) tablet 400 mg PO DAILY 05/24/25 [History Confirmed 05/24/25] multivitamin with folic acid 400 mcg tablet (Daily-[place] (with folic acid)) 1 tab PO DAILY 05/24/25 [History Confirmed 05/24/25] potassium chloride 20 mEq tablet,extended release 20 meq PO BID 05/24/25 [History Confirmed 05/24/25] pregabalin 75 mg capsule 75 mg PO Q8H 05/24/25 [History Confirmed 05/24/25] trazodone 100 mg tablet 100 mg PO BEDTIME 05/24/25 [History Confirmed 05/24/25] tuberculin PPD 5 tub. unit/0.1 mL intradermal injection solution (Tubersol) 0.1 ml intradermal ONCE 05/24/25 [History Confirmed 05/24/25] Discharge Plan Discharge Patient Disposition: Xfer Short-Term Hosp Condition: Stable Prescriptions: No Action diclofenac sodium [Arthritis Pain (diclofenac)] 1 % gel 4 g topical QID Qty: 100 0RF Rx Instructions: apply to single knee, ankle, foot; for foot includes sole/toes/top of foot sertraline 100 mg tablet 100 mg PO DAILY topiramate 25 mg tablet 25 mg PO BID omeprazole 40 mg capsule,delayed release(DR/EC) 40 mg PO DAILY atorvastatin 40 mg tablet 40 mg PO BEDTIME hydrocodone-acetaminophen 10-325 mg tablet 1 tab PO Q4H PRN (Reason: moderate to severe pain) famotidine 20 mg tablet 20 mg PO BID bisacodyl [Dulcolax (bisacodyl)] 10 mg Suppository 10 mg NV DAILY PRN (Reason: Constipation If cant take po, no results from MOM) ferrous sulfate [FeroSul] 325 mg (65 mg iron) tablet 325 mg PO EVERY OTHER DAY buspirone 10 mg tablet 10 mg PO TID cholecalciferol (vitamin D3) 1,250 mcg (50,000 unit) Capsule 1,250 unit PO .WEEKLY Rx Instructions: weekly on saturdays multivitamin with folic acid [Daily-[place] (with folic acid)] 400 mcg tablet 1 tab PO DAILY potassium chloride 20 mEq tablet extended release 20 meq PO BID albuterol sulfate 2.5 mg /3 mL (0.083 %) solution for nebulization 2.5 mg continuous nebulization Q6H PRN (Reason: Shortness Of Breath Or Wheezing) albuterol sulfate 90 mcg/actuation HFA aerosol inhaler 2 puff INHALATION Q6H PRN (Reason: Shortness Of Breath Or Wheezing) Tubersol 5 tub. unit /0.1 mL Solution 0.1 ml INTRADERMAL ONCE acetaminophen [Tylenol] 325 mg Tablet 650 mg PO Q6H PRN (Reason: Mild pain or fever) magnesium oxide 400 mg (241.3 mg magnesium) tablet 400 mg PO DAILY trazodone 100 mg tablet 100 mg PO BEDTIME pregabalin 75 mg capsule 75 mg PO Q8H Arexvy (PF) 120 mcg/0.5 mL Suspension For Reconstitution 120 mcg IM ONCE lactulose 10 gram/15 mL Solution 30 ml PO TID PRN (Reason: Constipation) Referrals: Georgette Bhatt FNP [Primary Care Provider, Family Practice] Transfer Attestations Time Spent in Transfer Care: critical care time Critical Care Time (min): 45 Quality Metrics Clinical Quality Measures [ Venous Thromboembolism { Contraindication to Overlap Therapy: None; Overlap threrpy ordered; VTE Discharge Education: Other; Deep Vein Thrombosis/Pulmonary Embolism Present on Admission: Yes; Contraindication to Pharm VTE Prophylaxis: None; Pharmacological prophylaxis given;}. No reported AMI, CVA or VTE this stay] Coding Level of Care Code Critical Care >/= 30 minutes Critical care time (in minutes): 45 The high probability of a clinically significant, sudden or life threatening deterioration, as referenced in this documentation, required my full and direct attention, intervention and personal management. The critical care time shown is in addition to time spent performing any reported separately billable procedures and includes the following: [x] Data and vital sign review and interpretation [x] Patient assessment, examination and intervention [x] Medication orders and management [x] Patient/Family updates as able [x] Care Coordination and Documentation. Diagnoses Acute deep vein thrombosis (DVT) of femoral vein of left lower extremity I82.412 Affected thrombotic vein of extremity: femoral Severe anemia D64.9 History of lumbar spinal fusion Z98.1 Shortness of breath at rest R06.02 Coronary artery disease involving [place] coronary artery of [place] heart without angina pectoris I25.10 Coronary Disease-Associated Artery/Lesion type: [place] artery [place] vs. transplanted heart: [place] heart Associated angina: without angina Perioperative cardiac complication Status post total left knee replacement not using cement Z96.652 Primary hypertension I10 Hypertension type: primary hypertension Mixed hyperlipidemia E78.2 Hyperlipidemia type: mixed hyperlipidemia Gastroesophageal reflux disease without esophagitis K21.9 Esophagitis presence: without esophagitis Major depressive disorder with single episode, in full remission F32.5 Depression Type: major depressive disorder Major depression recurrence: single episode Active/Remission status: in full remission Insomnia due to medical condition G47.01 Insomnia type: due to medical condition GI bleed K92.2 Left upper lobe pneumonia J18.9 Shock R57.9 Bilateral pulmonary embolism I26.99 Sepsis Event Note Evaluation Current stage of sepsis: septic shock Initial hypotension due to sepsis/infection: MAP < 65 mmHg Persistent hypotension due to sepsis/infection: MAP < 65 mmHg Possible source: pulmonary and wound Focused Exam Vital Signs Temp Pulse Resp BP Pulse Ox O2 Del Method O2 Del Method 05/25/25 12:15 49 L 17 130/70 94 Room Air 05/25/25 12:00 49 L 16 140/67 94 05/25/25 11:45 62 16 140/60 93 05/25/25 11:30 49 L 15 136/53 95 05/25/25 11:15 60 18 96 05/25/25 11:00 64 22 H 141/65 96 05/25/25 10:45 51 L 13 129/65 93 05/25/25 10:30 47 L 17 147/61 94 05/25/25 10:15 56 L 20 H 146/67 95 05/25/25 10:03 50 L 96 Room Air 05/25/25 10:00 46 L 14 131/78 97 Room Air 05/25/25 09:45 46 L 18 126/61 97 05/25/25 09:35 52 L 19 H 05/25/25 09:15 115/72 05/25/25 09:00 50 L 16 118/65 95 05/25/25 08:45 56 L 15 92/51 98 05/25/25 08:30 56 L 19 H 87/45 98 05/25/25 08:15 61 18 89/51 94 05/25/25 08:00 58 L 16 87/45 96 05/25/25 07:45 56 L 15 77/36 95 05/25/25 07:30 64 19 H 111/49 97 05/25/25 07:15 76 15 80/47 96 05/25/25 07:00 60 20 H 97 05/25/25 06:45 54 L 16 109/53 97 05/25/25 06:30 47 L 18 125/69 97 05/25/25 06:15 50 L 21 H 72/52 96 05/25/25 06:07 98.4 F 47 L 14 87/52 98 05/25/25 06:00 98.2 F 47 L 18 95/50 96 05/25/25 05:45 48 L 16 91/46 94 05/25/25 05:30 46 L 11 L 93/44 93 05/25/25 05:26 49 L 05/25/25 05:20 97.8 F 49 L 14 93/44 93 05/25/25 05:15 51 L 15 96/60 94 05/25/25 05:00 51 L 18 102/62 94 05/25/25 04:45 50 L 13 123/60 95 05/25/25 04:34 98.2 F 50 L 15 123/60 97 05/25/25 04:30 52 L 16 127/61 98 05/25/25 04:15 55 L 17 134/64 97 05/25/25 04:00 61 21 H 112/58 96 05/25/25 03:45 58 L 17 118/55 97 05/25/25 03:34 98.2 F 64 19 H 118/55 98 05/25/25 03:31 98.2 F 64 19 H 118/55 98 05/25/25 03:30 58 L 16 113/57 93 Capillary refill: > 3 Seconds Peripheral pulse location: Pedal Skin exam: normal turgor Date exam was performed: 05/25/25 Time exam was performed: 15:24 Problem List 1. Acute deep vein thrombosis (DVT) of femoral vein of left lower extremity: Status: Acute 2. Severe anemia: Status: Acute 3. History of lumbar spinal fusion: Status: Acute Comment: Dr Maribeth Butt, done emergently due to changes in bowel and bladder function. Had L2-3, L3-4 and L4-5 laminectomy and fusion with instrumentation. 4. Shortness of breath at rest: Status: Acute 5. Coronary artery disease involving [place] coronary artery of [place] heart without angina pectoris: Status: Chronic Comment: history of stent 6. Perioperative cardiac complication: Status: Acute Comment: Had tachybrady episode perioperatively during emergent surgery requiring temporary pacemaker 7. Status post total left knee replacement not using cement: Status: Chronic Comment: Date of procedure: March 09, 2025 Diagnosis: Severe degenerative osteoarthritis left knee with varus deformity and lateral laxity Procedure done: Left total knee arthroplasty with Avila guidance Implants: The Xyleme total knee system with a size 3 triathlon beaded cruciate retaining femur left, a triathlon titanium tibial component size 3 beaded, a triathlon X3 tibial bearing CS insert size 3 x 10 mm and a beaded triathlon titanium asymmetric patella size 32 x 10 mm 8. Primary hypertension: Status: Chronic 9. Mixed hyperlipidemia: Status: Chronic 10. Gastroesophageal reflux disease without esophagitis: Status: Chronic 11. Major depressive disorder with single episode, in full remission: Status: Chronic 12. 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 GI bleed: Status: Acute 14. Left upper lobe pneumonia: Status: Acute 15. Shock: Status: Acute 16. Bilateral pulmonary embolism: Status: Acute
== END 2025-05-25 13:25 | disposition short-term general hospital (02) | DRG 299 ==
LOC: ER 13:51 → ER IP 14:37 → MEDSURG 16:46 → ICU 20:47
PROVIDERS: Internal Medicine; Admitting Provider Hospitalist; Emergency Provider Family Medicine; PCP Nurse Practitioner Family; Visit Provider Family Medicine
DX: I82.412 Acute embolism and thrombosis of left femoral vein (principal); A41.9 Sepsis, unspecified organism; R65.21 Severe sepsis with septic shock; J18.9 Pneumonia, unspecified organism; I26.99 Other pulmonary embolism without acute cor pulmonale; D62 Acute posthemorrhagic anemia; M96.840 Postprocedural hematoma of a musculoskeletal structure following a musculoskeletal system procedure; K92.2 Gastrointestinal hemorrhage, unspecified; I25.10 Atherosclerotic heart disease of native coronary artery without angina pectoris; I10 Essential (primary) hypertension; E78.5 Hyperlipidemia, unspecified; K21.9 Gastro-esophageal reflux disease without esophagitis; F32.5 Major depressive disorder, single episode, in full remission; G47.01 Insomnia due to medical condition; I51.9 Heart disease, unspecified; Z98.1 Arthrodesis status; Z96.652 Presence of left artificial knee joint
CPT/HCPCS: 36415; 36430; 51702; 71045; 71275; 72132; 74176; 80048; 80053; 81001; 82274; 82607; 82746; 83540; 83550; 83605; 84145; 84484; 85014; 85018; 85025; 85045; 85610; 85730; 86140; 86850; 86900; 86920; 93005; 93306; 93971; 96365; 96375; 99285; J1644; J1938; J2543; J3372; J7030; J7050; J7120; J9999; P9016; P9046

== ENCOUNTER → 2025-08-30 08:31 | Outpatient (BNVA) | payer MEDICARE, SELFPAY | PROVIDERS: PCP Nurse Practitioner Family; Visit Provider Specialist | DX: Z47.89 Encounter for other orthopedic aftercare (principal); Z96.652 Presence of left artificial knee joint; M21.162 Varus deformity, not elsewhere classified, left knee | CPT/HCPCS: 73560; 73565; 99213 ==